=== PATIENT | female | born 1925 | race Caucasian/White ===

== ENCOUNTER 2016-11-21 14:54 | Inpatient (IN) | payer OTHER, MEDICARE ==
[~2016-11-21] VITALS: Ht 139.7 cm; Wt 69.9 kg
[~2016-11-21 14:54] MED LIST: ADVAIR DISKU 11 UNIT INH; DIOVAN HCT 12.51 TA1 PO; FOSINOPRIL40 MG PO; HYDROCODON-ACE1 EAC2 PO; LEVOTHROID0.025 MG PO; MOBIC7.5 M1 PO; PREDNISONE10 MG PO; SPIRIVA 18 MCG18 MCG INH; VALSARTAN-HCTZ1 EAC3 PO; VERAPAMIL HCL240 M2 PO; VIBRAMYCIN100 MG PO; ZITHROMAX 500M500 MG PO
--- NOTE | 2016-11-21 15:25 | ED DYSPNEA/ASTHMA COMPLAINT ---
History of Present Illness General Chief Complaint: Dyspnea (COPD, CHF, Other) Stated Complaint: SOB Source: patient, family, old records Exam Limitations: no limitations Vital Signs & Intake/Output Vital Signs & Intake/Output Vital Signs Date Time Temp Pulse Resp B/P Pulse O2 O2 Flow FiO2 Ox Delivery Rate 11/21 1738 98.7 90 18 127/59 92 Nasal 4.5L Cannula 11/21 1510 98.2 92 24 136/79 71 Nasal 4.0L Cannula Allergies Coded Allergies: NO KNOWN ALLERGIES (05/29/16) Reconcile Medications Azithromycin 250 MG TABLET 250 MG PO DAILY LUNG INFECTION Fluticasone-Salmeterol (Advair 100-50 Diskus) 100 MCG-50 MCG/DOSE BLST.W.DEV 1 PUF INH BID BREATING (Reported) Fosinopril Sodium 40 MG TABLET 1 TAB PO DAILY BLOOD PRESSURE Furosemide 20 MG TABLET 1 TAB PO DAILY CHF Hold HCTZ (one of your BP medication) while taking this med. Call corral boss if BP not under control. Guaifenesin (Guaifenesin ER) 600 MG TAB.ER.12H 600 MG PO Q12 MUCOUS THINNER Hydrocodone/Acetaminophen (Hydrocodon-Acetaminophen 5-325) 5 MG-325 MG TABLET 1-2 TAB PO Q8P PRN pain Levothyroxine Sodium (Levothroid) 0.025 MG TAB 0.025 MG PO DAILY THYROIDS ( Reported) Meloxicam (Mobic) 7.5 MG TABLET 1 TAB PO DAILY pain Prednisone 10 MG TABLET 1 TAB PO SI COPD TAKE 4 TABS FOR THREE DAYS (11/25/15-11/27/15) TAKE 3 TABS FOR THREE DAYS (11/28/15-11/30/15) TAKE 2 TABS FOR THREE DAYS (12/01/15-12/03/15) TAKE 1 TAB FOR THREE DAYS (12/04/15--12/06/15) Tiotropium [place] (Spiriva) 18 MCG CAP.W.DEV 1 CAP INH DAILY BREATHING ( Reported) Valsartan/Hydrochlorothiazide (Valsartan-Hctz 320-25 MG Tab) 1 EACH TABLET 1 TAB PO DAILY HEART (Reported) VERAPAMIL HCL (Verapamil ER) 240 MG TABLET.ER 360 MG PO DAILY BLOOD PRESSURE (Reported) Triage Note: RECEIVED 89 YO FEMALE WITH HX OF COPD, C/O WORSENING DIFFICULTY BREATHING X 2 DAYS WITH WEAKNESS AND NOW SOME CONFUSION. O2 SATS 68% ON 4L O2. 71% ON 6L O2. Triage Nurses Notes Reviewed? yes Onset: Gradual Duration: minute(s): (3), day(s): (3) Timing: recent history Severity: severe Activities at Onset: none Associated Symptoms: cough, DYSPNEA HPI: This is an 89-year-old female with history of COPD on 4 L of oxygen at home who arrives from home for chief complaint of increased shortness of breath over the last 2-3 days. Per the he noticed increased effort of breathing as well as phlegm productive of white and yellow sputum. Patient states that she lost her voice a few days ago. She has been using the nebulizer treatment at home with some relief. She does denies any chest pain or back pain. Denies any fever or chills. She is on a tapering dose of prednisone at 10 mg today. Her corral boss and international trade specialist out of [place] but she sees Anuradha Carlson MD for her primary care. Past History Travel History Traveled to [place] past 21 day No Medical History Any Pertinent Medical History? 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 No Review of Systems Review of Systems Constitutional: Denies: chills, fever. EENTM: Reports: no symptoms. Respiratory: Reports: cough, short of breath, sputum production. Cardiovascular: Denies: chest pain, palpitations. GI: Denies: abdominal pain. Genitourinary: Reports: no symptoms. Musculoskeletal: Reports: no symptoms. Skin: Reports: no symptoms. Neurological/Psychological: Reports: anxiety. Hematologic/Endocrine: Denies: bruising, bleeding, polyuria, polydipsia. Immunologic/Allergic: Denies: splenectomy. All Other Systems: Reviewed and Negative Physical Exam Physical Exam General Appearance: well developed/nourished, alert, awake Head: atraumatic, normal appearance, active bleeding Eyes: Bilateral: normal appearance, PERRL, EOMI. Ears, Nose, Throat: normal pharynx, normal ENT inspection, hearing grossly normal Neck: normal inspection, supple, full range of motion Respiratory: rhonchi, wheezing, respiratory distress Cardiovascular: tachycardia Peripheral Pulses: 2+ radial (R), 2+ radial (L) Gastrointestinal: normal bowel sounds, soft, non-tender Neurologic/Psych: awake, alert, oriented x 3 Skin: intact, normal color, warm/dry Core Measures ACS in differential dx? No Severe Sepsis Present: No Septic Shock Present: No Progress Differential Diagnosis: asthma, AMI, bronchitis, CHF, COPD, pulmonary embolism, pneumonia, pneumothorax, unstable angina Plan of Care: Orders Procedure Date/time Status Heart Healthy Diet 11/22 B Active Patient Data 11/21 1851 Active Admit to inpatient 11/21 1843 Active Vital Signs 11/21 1843 Active Code Status 11/21 1843 Active RT ED ORDERS 11/21 1820 Active Add-on Test (ER Only) 11/21 1757 Active TROPONIN LEVEL 11/21 1656 Complete ARTERIAL BLOOD GAS (GEN) 11/21 1530 Active RT ED ORDERS 11/21 1524 Active Telemetry/De Alcoholizer 11/21 1524 Active RAPID VIRAL INFLUENZA A 11/21 1524 Active LOWER RESPIRATORY CULTURE 11/21 1524 Active BLOOD CULTURE 11/21 1524 Active PARTIAL THROMBOPLASTIN TIME 11/21 1524 Complete PROTHROMBIN TIME 11/21 1524 Complete COMPREHENSIVE METABOLIC PANEL 11/21 1524 Complete CBC WITHOUT DIFFERENTIAL 11/21 1524 Complete B-TYPE NATRIURETIC PEP (BNP) 11/21 1524 Complete EKG 11/21 1507 Active Laboratory Tests 11/21/16 1656: Anion Gap 10, Estimated GFR > 60, BUN/Creatinine Ratio 36.7 H, Glucose 110 H, Calcium 8.8, Total Bilirubin 0.7, AST 24, ALT 28, Alkaline Phosphatase 68, Troponin I 0.03, Gkd-O-Xyncpljlmqe Pept 3930 H, Total Protein 6.6, Albumin 4.0, Globulin 2.6, Albumin/Globulin Ratio 1.5, PT 10.7, INR 1.02, APTT 28, CBC w Diff NO MAN DIFF REQ, RBC 3.78 L, MCV 94.1, MCH 31.3 H, RDW 13.8, MPV 6.8 L, Gran % 93.7 H, Lymphocytes % 1.9 L, Monocytes % 4.3, Eosinophils % 0.1, Basophils % 0 L, Absolute Granulocytes 15.2 H, Absolute Lymphocytes 0.3 L, Absolute Monocytes 0.7 H, Absolute Eosinophils 0, Absolute Basophils 0, PUBS MCHC 33.2 11/21/16 1550: pH 7.42, pCO2 52 H, pO2 60 L, HCO3 33 H, ABG O2 Sat (Measured) 90.0 L, Carboxyhemoglobin 1.4 L, O2 Concentration % 5L, O2 Delivery Method N/C, Phlebotomy Draw Site RIGHT RADIAL Microbiology 11/21 1656 BLOOD: Blood Culture - RECD 11/21 1619 BLOOD: Blood Culture - RECD 11/21 1524 LOWER RESP: Respiratory Culture - ORD 11/21 1524 LOWER RESP: Gram Stain - ORD EKG, TELE MONITOR, SUPPLEMENTAL OXYGEN, CXR. LABS SENT. DUONEB, IV SOLUMEDROL ORDERED. AZITHROMYCIN ORDERED. (NARCISO LEWIS,YVONNE) Diagnostic Imaging: Viewed by Me: Radiology Read. Discussed w/RAD: Radiology Read. CXR Impression: EXAM TYPE: RAD - XRY-PORTABLE CHEST XRAY EXAMINATION: XR PORTABLE CHEST CLINICAL INFORMATION: Hypoxia. COPD. Evaluate for pneumonia. COMPARISON: Previous chest x-rays most recent May [address] scans most recent November 2015 TECHNIQUE: AP portable chest FINDINGS: The cardiac silhouette is enlarged but stable. Hilar and mediastinal contours are unremarkable. The lungs are clear without evidence of pneumonia. There is no pleural effusion or pneumothorax. 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 IMPRESSION: Stable enlargement of the cardiac silhouette. No evidence of pneumonia. Initial ED EKG: NSR, LAD Rhythm Strip: sinus tachycardia Departure Departure Time of Disposition: 1836 Disposition: STILL A PATIENT Condition: Stable Clinical Impression Primary Impression: COPD exacerbation Secondary Impressions: Hypokalemia Referrals: MATT LEWIS,ANURADHA Simpson (PCP/Family) Referred to [facility] as new patient No Departure Forms: Customer Survey General Discharge Information Prescriptions: Current Visit Scripts Guaifenesin (Guaifenesin ER) 600 MG PO Q12 #10 TAB Prednisone 1 TAB PO SI #30 TAB TAKE 4 TABS FOR THREE DAYS (1/4/16-11/27/15) TAKE 3 TABS FOR THREE DAYS (11/28/15-11/30/15) TAKE 2 TABS FOR THREE DAYS (12/01/15-12/03/15) TAKE 1 TAB FOR THREE DAYS (12/04/15--12/06/15) Azithromycin 250 MG PO DAILY #3 TAB Fosinopril Sodium 1 TAB PO DAILY #30 TAB Furosemide 1 TAB PO DAILY #30 TAB Hold HCTZ (one of your BP medication) while taking this med. Call corral boss if BP not under control. Admission Note Spoke With: ADILENE SCHMID MD Documentation of Exam: Documentation of any treatments & extenuating circumstances including Concerns Regarding Discharge (functional status, medication knowledge or non-compliance, living conditions, etc.) that warrant an admission rather than observation: [TRC /NEBS, IV STEROIDS, IV ABX, PULMONARY CONSULT, MONITOR I/O] Critical Care Note Critical Care Note Critical Care Time: 30-74 min
--- NOTE | 2016-11-21 16:44 | RADIOLOGY REPORT ---
EXAMINATION: XR PORTABLE CHEST CLINICAL INFORMATION: Hypoxia. COPD. Evaluate for pneumonia. COMPARISON: Previous chest x-rays most recent May [address] scans most recent November 2015 TECHNIQUE: AP portable chest FINDINGS: The cardiac silhouette is enlarged but stable. Hilar and mediastinal contours are unremarkable. The lungs are clear without evidence of pneumonia. There is no pleural effusion or pneumothorax. 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 IMPRESSION: Stable enlargement of the cardiac silhouette. No evidence of pneumonia.
[2016-11-21 17:08] LABS: ABSOLUTE BASOPHIL COUNT 0 /CUMM (0.0-0.2); ABSOLUTE EOSINOPHIL COUNT 0 /CUMM (0.0-0.7); ABSOLUTE GRANULOCYTE CT 15.2 /CUMM (1.4-6.5); ABSOLUTE LYMPH COUNT 0.3 /CUMM (1.2-3.4); ABSOLUTE MONOCYTE COUNT 0.7 /CUMM (0.10-0.60); BASOPHIL % 0 % (0.0-2.0); EOSINOPHIL % 0.1 % (0-5); GRANULOCYTE % 93.7 % (42.2-75.2); HEMATOCRIT 35.6 % (37-47); MEAN CORPUSCULAR HGB 31.3 PG (27.0-31.0); MEAN CORPUSCULAR HGB CONC 33.2 G/DL (33.0-37.0); MEAN CORPUSCULAR VOLUME 94.1 FL (81.0-99.0); MEAN PLATELET VOLUME 6.8 FL (7.4-10.4); PLATELET COUNT 294 /CUMM (130-400); RBC DISTRIBUTION WIDTH 13.8 % (11.5-14.5); RED BLOOD CELL CT 3.78 /CUMM (4.20-5.40)
[2016-11-21 17:18] LABS: PT 10.7 SEC (9.4-12.5); PTT 28 SEC (25-37)
[2016-11-21 17:25] LABS: WHITE BLOOD CELL COUNT 16.2 /CUMM (4.8-10.8)
--- NOTE | 2016-11-21 19:41 | History & Physical ---
ZANA LEWIS,MERGED WITH [facility] 11/21/161939: General Information and HPI MD Statement: I have seen and personally examined MATT DEAL and documented this H&P. The patient is a 89 year old F who presented with a patient stated chief complaint of [SOB]. 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 Patient states that her dyspnea started around 10 days ago and getting worse. She added that during the last 3 days the dyspnea became severe to the point that she barely can walk 3 steps without getting severely out of breath. she started using nebulizer and rescue inhaler more frequently with less effect. Patient reported cough productive of beckford-white sputum. She has hoarseness of voice however she denies fever, chills, recent travel, sick contacts, or chest pain. Pneumococcal and flu vaccine are up-to-date. Patient denies history of heart failure, an echo was done recently and the results show no difference from the old echo. She denies Palpitation, orthopnea, PND, or lower limb swelling. Patient reported increased urinary frequency, but no dysuria, abdominal pain, fever or chills. Patient lived with her , at baseline patient use walker to ambulate, has long history of smoking, however denies current smoke, drink alcohol occasional, and denies any recreational drug use. She has advanced macular degeneration( hard to see) and impaired hearing. Allergies/Medications Allergies: Coded Allergies: NO KNOWN ALLERGIES (05/29/16) Home Med list Doxycycline Hyclate (Vibramycin) 100 MG CAPSULE 1 CAP PO BID skin infection Fluticasone-Salmeterol (Advair 100-50 Diskus) 100 MCG-50 MCG/DOSE BLST.W.DEV 1 PUF INH BID BREATING (Reported) Fosinopril Sodium 40 MG TABLET 1 TAB PO DAILY BLOOD PRESSURE (Reported) Hydrocodone/Acetaminophen (Hydrocodon-Acetaminophen 5-325) 5 MG-325 MG TABLET 1-2 TAB PO Q8P PRN pain Levothyroxine Sodium (Levothroid) 0.025 MG TAB 0.025 MG PO DAILY THYROIDS ( Reported) Meloxicam (Mobic) 7.5 MG TABLET 1 TAB PO DAILY pain Tiotropium Lawrence (Spiriva) 18 MCG CAP.W.DEV 1 CAP INH DAILY BREATHING ( Reported) Valsartan/Hydrochlorothiazide (Valsartan-Hctz 320-25 MG Tab) 1 EACH TABLET 1 TAB PO DAILY HEART (Reported) VERAPAMIL HCL (Verapamil ER) 240 MG TABLET.ER 360 MG PO DAILY BLOOD PRESSURE (Reported) Past History Travel History Traveled to [place] past 21 day No Medical History Neurological: NONE EENT: macular degeneration Cardiovascular: NONE (A), hypertension, AORTIC VALVE REGURGITATION Respiratory: COPD, emphysema Gastrointestinal: NONE Hepatic: NONE Renal: NONE Musculoskeletal: osteoarthritis Psychiatric: NONE Endocrine: hypothyroidism Blood Disorders: NONE Cancer(s): NONE HEMATOLOGY NURSE/Reproductive: miscarriage History of MRSA: No History of VRE: No History of CDIFF: No Surgical History Surgical History: non-contributory Past Family/Social History Family History Relations & Conditions if any MOTHER Relation not specified for: FH: hypertension Psychosocial History Who Do You Live With? spouse Services at Home: None Primary Language: Mongolian Review of Systems Review of Systems Constitutional: Denies: chills, fever, weakness. Cardiovascular: Denies: chest pain, orthopena, palpitations, peripheral edema, syncope. Respiratory: Reports: cough, sputum production (beckford sputum. ). GI: Denies: abdominal pain, constipation, diarrhea, distention, nausea, vomiting. Genitourinary: Reports: frequency. Denies: discharge, dysuria, hematuria. Skin: Denies: rash. Exam & Diagnostic Data Last 24 Hrs of Vital Signs/I&O Vital Signs Date Time Temp Pulse Resp B/P Pulse O2 O2 Flow FiO2 Ox Delivery Rate 11/22 0000 Nasal 4.0L Cannula 11/21 2323 94 118/68 11/21 2158 91 Nasal 6.0L Cannula 11/21 2155 97.8 94 24 118/68 91 Nasal 6.0L Cannula 11/21 2129 98.7 111 18 102/63 96 Nasal 4.0L Cannula 11/21 2128 98.7 111 18 63 96 Nasal 4.0L Cannula 11/21 1738 98.7 90 18 127/59 92 Nasal 4.5L Cannula 11/21 1600 90 Nasal 6.0L Cannula 11/21 1510 98.2 92 24 136/79 71 Nasal 4.0L Cannula Intake & Output 11/22 0800 11/22 0000 11/21 1600 Intake Total 400 Output Total Balance 400 Intake, IV 300 Intake, Oral 100 Patient 72.575 kg 72.575 kg Weight Physical Exam General Appearance Alert, Oriented X3, Cooperative, No Acute Distress Skin No Rashes HEENT Atraumatic, PERRLA, EOMI, Mucous Membr. moist/pink Neck No JVD Cardiovascular Regular Rate, Normal S1, Normal S2, systolic murmur best heard over aortic area. Lungs in respiratory distress, decrease air-entry B/L. use accessorries to breath . no whezzing or additional sounds. Abdomen Normal Bowel Sounds, Soft, No Tenderness Neurological Normal Speech Extremities LE pitting edema B/L Last 24 Hrs of Labs/Pedro: Laboratory Tests 11/21/16 2318: Troponin I 0.01 11/21/16 165: Anion Gap 10, Estimated GFR > 60, BUN/Creatinine Ratio 36.7 H, Glucose 110 H, Calcium 8.8, Total Bilirubin 0.7, AST 24, ALT 28, Alkaline Phosphatase 68, Troponin I 0.03, [id number] Pept 3930 H, Total Protein 6.6, Albumin 4.0, Globulin 2.6, Albumin/Globulin Ratio 1.5, TSH 2.320, Free T4 1.33, PT 10.7, INR 1.02, APTT 28, CBC w Diff NO MAN DIFF REQ, RBC 3.78 L, MCV 94.1, MCH 31.3 H, RDW 13.8, MPV 6.8 L, Gran % 93.7 H, Lymphocytes % 1.9 L, Monocytes % 4.3, Eosinophils % 0.1, Basophils % 0 L, Absolute Granulocytes 15.2 H, Absolute Lymphocytes 0.3 L, Absolute Monocytes 0.7 H, Absolute Eosinophils 0, Absolute Basophils 0, PUBS MCHC 33.2 11/21/16 1550: pH 7.42, pCO2 52 H, pO2 60 L, HCO3 33 H, ABG O2 Sat (Measured) 90.0 L, Carboxyhemoglobin 1.4 L, O2 Concentration % 5L, O2 Delivery Method N/C, Phlebotomy Draw Site RIGHT RADIAL Microbiology 11/21 2144 LOWER RESP: Respiratory Culture - ORD 11/21 2144 LOWER RESP: Gram Stain - ORD 11/21 1656 BLOOD: Blood Culture - RECD 11/21 1619 BLOOD: Blood Culture - RECD 11/21 1524 LOWER RESP: Respiratory Culture - ORD 11/21 1524 LOWER RESP: Gram Stain - ORD Assessment/Plan Assessment: Assessment and plan #Acute respiratory failure them most likely multifactorial in nature Patient has a history of COPD with ABG showing compensated respiratory acidosis with hypoxia. Patient does not have a history of heart failure however she has a lower limb edema bilaterally with mildly elevated PBN and crackles at lung bases bilaterally. --- for COPD * IV Solu-Medrol 40 mg every 8 hours * TRC nebs when necessary * IV azithromycin 500 mg IV daily * Oxygen as needed( now on 4 L with a saturation the lower 90s) * Mucinex 600 mg every 12 by mouth * Pulmonary consult in a.m. ---for possible heart failure * Patient received 20 mg IV Lasix * Strict I's and O's * We will obtain records of recent echo that was done at [place] * We will rule out ACS by 3 sets of troponins and EKG * Cardiology consult with Dr. Song in a.m. #Hyponatremia * Around baseline 130 * Repeat BEP in a.m. * Hydrochlorothiazide will be on hold #Oral thrush she has not been rinsing her mouth properly after use of oral steroid. * Nystatin swish and swallow * Educate patient about the proper way of using steroid inhaler. #HTN * Continue Verapamil and Lisinopril * We will hold losartan(patient is receiving lisinopril), confirmed in the morning * HCTZ is on hold (hyponatremia). #Hypothyroidism Patient reported that she is not taking her medication for a while. * Start levothyroxine * We will check TSH and T4 levels. #Ascending aorta aneurysm. * Major 4.[address] from Nov 2015. Stable * Will instruct the patient to Fu with PCP Diet Heart healthy diet Lovenox for DVT prophylaxis Patient is DNI but not DNR As Ranked By This Provider Problem List: 1. COPD (chronic obstructive pulmonary disease) 2. Hypoxia 3. COPD exacerbation Core Measures/Miscellaneous Acute Coronary Syndrome ACS Diagnosis: No Cerebrovascular Accident CVA/TIA Diagnosis: No Congestive Heart Failure CHF Diagnosis: Yes (need to be R/O ) Venous Thromboembolism VTE Risk Factors: Acute medical illness, Age > 40, Obesity VTE Prophylaxis Ordered Inpt: Mech & Pharm No Mech VTE prophylaxis d/t: No contraindications No VTE Pharm Prophylaxis d/t: No contraindications VTE Diagnosis: No VTE Type: NONE VTE Confirmed by (Test): NONE Severe Sepsis Severe Sepsis Present: No Septic Shock Septic Shock Present: No Miscellaneous Documentation Attending Case Discussed With: ADILENE SCHMID MD Primary Care Physician: ANURADHA GUTIERREZ MD Patient sees these Specialists ANURADHA GUTIERREZ MD Level of Patient Care: General Medicine SANDRO KUMAR 11/21/162037: General Information and HPI MD Statement: I have seen and personally examined MATT DEAL and documented this H&P. The patient is a 89 year old F who presented with a patient stated chief complaint of []. Resident Review Statement Resident Statement: examined this patient, discussed with international trade analyst Other Findings: Patient is a 89-year-old female with past medical history of COPD on 4 L home oxygen, hypertension, hypothyroidism macular degeneration, who presented to the ED for worsening shortness of breath for the last 1 week. Patient states for the past 1 week her shortness of breath is worsening and she is huffing and puffing with the walking 2-3 steps. At baseline she is on 4 L oxygen, however for the past few days she is requiring more oxygen for her regular chores. She is also bringing up whitish phlegm. She has been using Advair as when necessary, however for the past few days she has been using it frequently along with nebulization. Complains of hoarseness of voice Denies any fevers, chills, orthopnea, leg swelling, nausea, vomiting, abdominal pain, chest pain, palpitations, urinary or bowel symptoms. Denies any sick contacts, recent travel. Was administered pneumonia shot and flu shot a few weeks back. She is on prednisone 10 mg prescribed by her PCP Anuradha Gutierrez for COPD. Does not use any BiPAP. Denies history of heart failure. Follows up with fill technician Dr. Coelho([place]), and receptionist/telephone operator Dr. Vick([place]). She had an echocardiogram done 1 week back at a receptionist/telephone operator office which patient claims did not show any heart failure. Ex-smoker, quit 40 years ago. Occasional drinker 2-4 glasses of wine per week. Lives at home with her . Uses a rolling walker at baseline for ambulation. In the ED vitals temperature 98.2, pulse 92, respiration 24, blood pressure 136/ 79, saturating 71% on nasal cannula on 4 L.. Patient received nebulizer treatment in the ED which improved her saturations to 92% on 4.5 L. Labs white count 16.2, H&H 11.8/35.6, sodium 129, negative troponins, proBNP 3930. 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 No evidence of pneumonia. Physical exam Gen.: Awake, alert oriented 3, in moderate respiratory distress, speaking in full sentences.\ HEENT: PERRLA, EOMI, no JVD, oral thrush CVS: S1 and S2 heard, systolic murmur in aortic area Respiratory: Decreased breath sounds bilaterally, basal crackles bilaterally Extremities: Trace bilateral pedal edema Skin: Multiple telangiectasias on the back and extremities. Plan: 1. Acute hypoxic respiratory failure likely secondary to COPD exacerbation.No documented evidence of CHF/pneumonia. Chest x-ray does not show any pulmonary congestion/infiltrate. Patient has elevated white count(has been on steroids). -Admit to [facility] -Keep oxygenation with a 92% -TRC nebs [id number] -Sputum/blood cultures -IV Solu-Medrol 40 mg every 8 hours -IV azithromycin daily -Nystatin swish and swallow for oral thrush secondary to Advair. - Mucinex -Pulmonary consult in a.m. 2. CHF ?Elevated proBNP. Presence of pedal edema along with bilateral crackles on examination. Last echocardiogram from 07/09/2016 shows EF of more than 55%. No wall motion abnormalities. -We'll give patient 1 dose of IV Lasix 20 mg -3 sets of troponin and EKG to rule out ACS -Cardiology consult with Dr. Song in a.m. 3.Hyponatremia -Chronic, baseline around 130 -Repeat BEP in a.m. -We will hold HCTZ to be causing hyponatremia. 4.Hypertension -Continue Verapamil and Lisinopril -Patient is on valsartan HCTZ combination. She is also on lisinopril. Unclear why she is on WILIAN/ARB at the same time. We will continue Lisinopril for now. -We will hold HCTZ as it may be causing hyponatremia. 5. Hypothyroidism -Continue levothyroxine(patient says she has not been taking the thyroid medication for a while now) -We will check TSH and T4 levels. 6.Ascending aorta aneurysm- stable. - A 4.[address] from Nov 2015. Plan was to repeat CT in 6 months. PCP aware. -2 sub-5 mm noncalcified subpleural lung nodules- stable Lovenox for DVT prophylaxis Heart healthy diet Patient is DNI(okay to resuscitate) ADILENE SCHMID 11/21/16 2322: Attending MD Review Statement Attending Statement Attending MD Statement: examined this patient, discuss w/resident/PA/PURCHASING SUPERVISOR, agreed w/resident/PA/PURCHASING SUPERVISOR, discussed with family, reviewed EMR data (avail), reviewed images, amended to note Attending Assessment/Plan: CC : horse voice and sob Pmhx: HTN, COPD on home 02 at 4 L, HF, lower extremity venous insufficiency, thoracic aortic aneurysm Patient was noticing progressive worsening of shortness of Breath since last 1 week, with increasing use of nebulization and rescue inhalers. Shortness of breath but more on exertion, not at rest, no orthopnea, no PND. also noticed increased sputum production, without much worsening cough. Sputum was clear, no blood tinge. Patient did not notice any fever, chills, chest pain, recent viral infection, recent use of antibiotic, recent sick contacts. According to her patient was getting more lethargic and confused and last 2 days. She follows up with receptionist/telephone operator and fill technician at [place]. Patient also started to notice hoarseness of voice since last 2 days. She uses Advair as required, she used one week back without rinsing her mouth. Patient has macular degeneration so she cannot see much, she is hard of hearing. Vitals: She was saturating 68% on 4 L NC at arrival. O2 saturation improved after nebulization treatment in ER, eventually she saturating 90% on 6 L, afebrile, BP, HR in acceptable range. On examination: A O 3, respiratory distress, accessory muscles of respiration in use. RS: I could not appreciate significant wheeze but respiratory sounds are markedly with bibasilar crackles present. CVS: JVD could not be appreciated, S1-S2, RRR, systolic murmur in aortic area 3/6. Pitting edema bilateral lower extremity present. Abdomen: Soft, NT, ND, bowel sounds present, no focal neurological deficit. On oral examination mild congestion in the posterior pharyngeal wall normal obvious oral thrush absurd. Labs: WBC 16.2, hemoglobin 11.8, sodium 129, chloride 85, bicarbonate 35, BUN 22 , glucose 110, proBNP 3930, troponin 0.03, INR 1.02, AB.42/52/60/33 on 5 L Chest x-ray: Stable cardiomegaly, no evidence of pneumonia. A and P #1 acute respiratory failure: acute hypoxia on chronic co2 retention, Secondary to combination of COPD exacerbation along with possible decompensated heart failure. #2 COPD exacerbation: Patient has long-standing history of COPD, ABG is compensated with hypoxia, continue IV methylprednisolone 40 mg every 8 hourly, nebulization, O2 by nasal cannula, Mucinex, IV azithromycin. #3 possible decompensated heart failure: Patient does not have significant JVD elevation but trace pedal edema along with the crackles on examination, along with hypoxia on ABG favors a diagnosis. Try 20 mg IV Lasix now for symptomatic relief, Recent echocardiogram was done one month back, according to patient everything was normal. obtain records from receptionist/telephone operator, if not possible then patient may require 2-D echo Cardiogram. Decision of Lasix continuation tomorrow according to clinical examination. Patient denies any chest pain, trend troponin , repeat EKG in a.m. Strict I's and O's #4 hyponatremia with sodium 129: appears to be chronic recheck check sodium in morning. #5 hoarseness of voice: This can be probably secondary to thrush. Given that she has not been rinsing her mouth after use of Advair. Nystatin swish and swallow for tomorrow, reevaluate. I counseled her about use of advair. #6 leukocytosis: on PO prednisone at home, Patient does not have any significant fever in ER or at home, there are no infiltrates on chest x-ray, no symptoms of UTI, continue azithromycin for COPD exacerbation repeat CBC in a.m., check blood cultures. #7 DVT prophylaxis with Lovenox, adequate pain control.
[2016-11-21 21:55] VITALS: BP 118/68
--- NOTE | 2016-11-21 23:23 | Admission Certification ---
Admission Certification Certification Statement - As attending physician, I certify that at the time of - admission, based on clinical presentation, severity of - symptoms, need for further diagnostic testing and - therapeutic interventions, and risk of adverse outcomes - without in-hospital treatment, in my clinical assessment, - this patient requires an acute hospital stay for a minimum - of two nights or longer. I have also considered psychsocial - factors such as support system, advanced age, financial - issues, cognitive issues, and failed out-patient treatments, - past re-admission history, safety of patient, and lack of - compliance as applicable. Specific rationale supporting this admission is: acute on chronic respiratory failure, copd exacerbation
[2016-11-22 07:25] VITALS: BP 100/60
[2016-11-22 08:21] LABS: ABSOLUTE BASOPHIL COUNT 0 /CUMM (0.0-0.2); ABSOLUTE EOSINOPHIL COUNT 0 /CUMM (0.0-0.7); ABSOLUTE GRANULOCYTE CT 8.3 /CUMM (1.4-6.5); ABSOLUTE LYMPH COUNT 0.1 /CUMM (1.2-3.4); ABSOLUTE MONOCYTE COUNT 0.1 /CUMM (0.10-0.60); BASOPHIL % 0 % (0.0-2.0); EOSINOPHIL % 0 % (0-5); GRANULOCYTE % 97.4 % (42.2-75.2); HEMATOCRIT 34.1 % (37-47); MEAN CORPUSCULAR HGB 31.9 PG (27.0-31.0); MEAN CORPUSCULAR HGB CONC 34.1 G/DL (33.0-37.0); MEAN CORPUSCULAR VOLUME 93.6 FL (81.0-99.0); PLATELET COUNT 299 /CUMM (130-400); RBC DISTRIBUTION WIDTH 13.9 % (11.5-14.5); RED BLOOD CELL CT 3.65 /CUMM (4.20-5.40)
--- NOTE | 2016-11-22 09:06 | PN- Housestaff ---
[place] 11/22/16 0906: Subjective Follow-up For: -COPD exacerbation -Compensated congestive heart failure -Hyponatremia -Peripheral vascular disease Complaints: shortness of breath Subjective: Patient seen and examined at the bedside, she is sitting up in chair with a mild distress, nasal cannula in place, she ate her breakfast with no problem. Her blood pressure is in the low side today 100/60, we hold her blood pressure medication. She stated that her breathing is improved, she brought up whitish sputum No chest pain, nausea, vomiting, fever, chills, and there is no change in urinary or bowel habits. Her other vitals are stable, she is on 4 L nasal cannula and oxygen saturation more than 82% Review of Systems Constitutional: Reports: no symptoms. EENTM: Reports: no symptoms. Cardiovascular: Reports: no symptoms. Respiratory: Reports: see HPI, short of breath. Gastrointestinal: Reports: no symptoms. Genitourinary: Reports: no symptoms. Musculoskeletal: Reports: no symptoms. Skin: Reports: change in skin color, dryness (bilateral lower extremity). Neurological/Psychological: Reports: no symptoms. Hematologic/Endocrine: Reports: no symptoms. Immunologic/Allergic: Reports: no symptoms. Objective Last 24 Hrs of Vital Signs/I&O Vital Signs Date Time Temp Pulse Resp B/P Pulse O2 O2 Flow FiO2 Ox Delivery Rate 11/22 0725 98.7 68 22 100/60 91 Nasal Cannula 11/22 0000 Nasal 4.0L Cannula 11/21 2323 94 118/68 11/21 2158 91 Nasal 6.0L Cannula 11/21 2155 97.8 94 24 118/68 91 Nasal 6.0L Cannula 11/21 2129 98.7 111 18 102/63 96 Nasal 4.0L Cannula 11/218 98.7 111 18 102/63 96 Nasal 4.0L Cannula 11/21 1738 98.7 90 18 127/59 92 Nasal 4.5L Cannula 11/21 1600 90 Nasal 6.0L Cannula 11/21 1510 98.2 92 24 136/79 71 Nasal 4.0L Cannula Intake & Output 11/22 1600 11/22 0800 11/22 0000 Intake Total 130 400 Output Total 1000 Balance -870 400 Intake, IV 30 300 Intake, Oral 100 100 Number 0 Bowel Movements Output, Urine 1000 Patient 160 lb Weight Physical Exam General Appearance: Alert, Oriented X3, Cooperative, Mild Distress Skin: bilateral lower extremity multiple bruise, dryness HEENT: Atraumatic, PERRLA, EOMI, Mucous Membr. moist/pink Neck: Supple, No JVD Lymphatic: Axillary nl, Cervical nl Cardiovascular: Regular Rate, Normal S1, Normal S2, No Murmurs Lungs: Clear to Auscultation, Normal Air Movement Abdomen: Normal Bowel Sounds, Soft, No Tenderness Extremities: bilateral lower extremity +2 edema Vascular: Normal Pulses Current Medications: Current Medications Sig/Lashon Start time Last Medication Dose Route Stop Time Status Admin Acetaminophen 325 MG Q6P PRN 11/21 1945 AC PO Acetaminophen/ 1 TAB Q8P PRN 11/21 1945 AC 11/21 Hydrocodone Bitart PO 2211 Albuterol Sulfate 3 ML ONCE ONE 11/21 1830 DC 11/21 INH 11/21 1831 1822 Albuterol Sulfate 3 ML ONCE ONE 11/21 1530 DC 11/21 INH 11/21 1531 1542 Azithromycin 500 MG 1830 11/22 183 AC Sodium Chloride 250 ML IV Azithromycin 500 MG ONCE ONE 11/21 1715 DC 11/21 Sodium Chloride 250 ML IV 11/21 1814 1858 Enoxaparin Sodium 40 MG DAILY 11/21 1937 AC 11/22 SC 1007 Fluticasone 2 PUF BID 11/21 2200 AC 11/22 Propionate INH 1001 Furosemide 20 MG ONCE ONE 11/21 2030 DC 11/21 IV PUSH 11/21 2031 2325 Guaifenesin 600 MG Q12 11/21 220 AC 11/22 PO 1005 Ipratropium [place] 2.5 ML ONCE ONE 11/21 1830 DC 11/21 INH 11/21 1831 1822 Ipratropium [place] 2.5 ML ONCE ONE 11/21 1530 DC 11/21 INH 11/21 1531 1541 Levothyroxine Sodium 0.025 MG DAILY AC 11/22 0700 CAN PO Lisinopril 40 MG DAILY 11/22 1000 AC PO Losartan Potassium 25 MG DAILY 11/21 194 DC 11/21 PO 2323 Methylprednisolone 40 MG Q8 11/21 2200 AC 11/22 IV 0621 Methylprednisolone 0 .STK-MED ONE 11/21 1705 DC .ROUTE Methylprednisolone 125 MG ONCE ONE 11/21 1530 DC 11/21 IV 11/21 1531 1713 Nystatin 5 ML Q6 11/22 0600 AC 11/22 PO 11/22 1801 0622 Nystatin 5 ML Q6 11/21 06 DC 11/21 PO 11/21 1801 2324 Oxybutynin Chloride 5 MG DAILY 11/218 AC 11/22 PO 1001 Patient Medication 1 UNIT ONE NR 11/21 2030 [facility] ED 11/21 2100 Patient Medication 1 UNIT ONE NR 11/21 2030 [facility] ED 11/21 2100 Patient Medication 1 UNIT ONE NR 11/21 1945 [facility] ED 11/21 2000 Tiotropium [place] 1 PUF DAILY 11/21 194 AC 11/22 INH 1002 Verapamil HCl 360 MG DAILY 11/22 1000 DC PO Verapamil HCl 360 MG DAILY 11/22 1000 AC PO Last 24 Hrs of Lab/Pedro Results Last 24 Hrs of Labs/Mics: Laboratory Tests 11/22/16 0710: Anion Gap 10, Estimated GFR > 60, BUN/Creatinine Ratio 30.0 H, Troponin I 0.02, CBC w Diff NO MAN DIFF REQ, RBC 3.65 L, MCV 93.6, MCH 31.9 H, RDW 13.9, MPV 7.0 L, Gran % 97.4 H, Lymphocytes % 1.5 L, Monocytes % 1.1 L, Eosinophils % 0, Basophils % 0 L, Absolute Granulocytes 8.3 H, Absolute Lymphocytes 0.1 L, Absolute Monocytes 0.1 L, Absolute Eosinophils 0, Absolute Basophils 0, PUBS MCHC 34.1 11/21/16 2318: Troponin I 0.01 11/21/16 1656: Anion Gap 10, Estimated GFR > 60, BUN/Creatinine Ratio 36.7 H, Glucose 110 H, Calcium 8.8, Total Bilirubin 0.7, AST 24, ALT 28, Alkaline Phosphatase 68, Troponin I 0.03, Oho-O-Iwaonzuqzgo Pept 3930 H, Total Protein 6.6, Albumin 4.0, Globulin 2.6, Albumin/Globulin Ratio 1.5, TSH 2.320, Free T4 1.33, PT 10.7, INR 1.02, APTT 28, CBC w Diff NO MAN DIFF REQ, RBC 3.78 L, MCV 94.1, MCH 31.3 H, RDW 13.8, MPV 6.8 L, Gran % 93.7 H, Lymphocytes % 1.9 L, Monocytes % 4.3, Eosinophils % 0.1, Basophils % 0 L, Absolute Granulocytes 15.2 H, Absolute Lymphocytes 0.3 L, Absolute Monocytes 0.7 H, Absolute Eosinophils 0, Absolute Basophils 0, PUBS MCHC 33.2 11/21/16 1550: pH 7.42, pCO2 52 H, pO2 60 L, HCO3 33 H, ABG O2 Sat (Measured) 90.0 L, Carboxyhemoglobin 1.4 L, O2 Concentration % 5L, O2 Delivery Method N/C, Phlebotomy Draw Site RIGHT RADIAL Microbiology 11/21 2144 LOWER RESP: Respiratory Culture - COLB 11/21 2144 LOWER RESP: Gram Stain - COLB 11/21 1656 BLOOD: Blood Culture - RECD 11/21 161 BLOOD: Blood Culture - RECD 11/21 152 LOWER RESP: Respiratory Culture - COLB 11/21 152 LOWER RESP: Gram Stain - COLB Assessment/Plan Assessment: 89-year-old female with past medical history significant for COPD on home oxygen , hypertension, hypothyroidism, lower extremity venous insufficiency, thoracic aortic aneurysm presented to emergency department with progressive shortness of breath and admitted for COPD exacerbation and possible CHF. Assessment and plan: # Acute hypoxic respiratory failure likely secondary to COPD exacerbation. -Keep oxygenation with a 92% -TRC nebs [id number] -Follow-up Sputum/blood cultures -Continue IV Solu-Medrol 40 mg every 8 hours -Continue IV azithromycin daily -Nystatin swish and swallow for oral thrush secondary to Advair. - Mucinex -Pending pulmonary consult 2. CHF ?Elevated proBNP. Presence of pedal edema along with bilateral crackles on examination. Last echocardiogram from 07/09/2016 shows EF of more than 55%. No wall motion abnormalities. - she received 1 dose of IV Lasix 20 mg, will hold for now on more Lasix her blood pressure is borderline, consider resuming low-dose Lasix at a.m. 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 She was advised to follow-up with her PCP after discharge regarding her blood pressure medication 5. Hypothyroidism -Continue levothyroxine(patient says she has not been taking the thyroid medication for a while now) -We will check TSH and T4 levels. 6.Ascending aorta aneurysm- stable. - A 4.[address] from Nov 2015. Plan was to repeat CT in 6 months. PCP aware. -2 sub-5 mm noncalcified subpleural lung nodules- stable Lovenox for DVT prophylaxis Heart healthy diet Problem List: 1. COPD (chronic obstructive pulmonary disease) Pain Ratin Pain Location: - Pain Goal: Remain pain free Pain Plan: - Tomorrow's Labs & Rationales: CBC, BEP
[2016-11-22 10:03] LABS: WHITE BLOOD CELL COUNT 8.5 /CUMM (4.8-10.8)
--- NOTE | 2016-11-22 10:43 | Cons- Pulmonary ---
General Information and HPI Consulting Request Date of Consult: 11/22/16 Requested By: Dr. Todd Reason for Consult: COPD exacerbation. Source of Information: patient, old records Exam Limitations: no limitations History of Present Illness: The patient is an 89-year-old female with a past history significant for COPD/ emphysema chronically on 4 L of nasal oxygen. She also has a history of hypothyroidism, hypertension, and advanced macular degeneration. The patient was brought to the emergency department for evaluation of shortness of breath that has been worsening over the past 1-2 weeks. The patient has been physically limited as a result of her shortness of breath. The patient was using her nebulizer without relief. She has a cough productive of [place] to white sputum. There is no history of orthopnea, PND, increased lower extremity swelling, chest pain, fevers or chills. The patient reports that she is feeling slightly better. Allergies/Medications Allergies: Coded Allergies: NO KNOWN ALLERGIES (05/29/16) Home Med List: Doxycycline Hyclate (Vibramycin) 100 MG CAPSULE 1 CAP PO BID skin infection Fluticasone-Salmeterol (Advair 100-50 Diskus) 100 MCG-50 MCG/DOSE BLST.W.DEV 1 PUF INH BID BREATING (Reported) Fosinopril Sodium 40 MG TABLET 1 TAB PO DAILY BLOOD PRESSURE (Reported) Hydrocodone/Acetaminophen (Hydrocodon-Acetaminophen 5-325) 5 MG-325 MG TABLET 1-2 TAB PO Q8P PRN pain Levothyroxine Sodium (Levothroid) 0.025 MG TAB 0.025 MG PO DAILY THYROIDS ( Reported) Meloxicam (Mobic) 7.5 MG TABLET 1 TAB PO DAILY pain Tiotropium [place] (Spiriva) 18 MCG CAP.W.DEV 1 CAP INH DAILY BREATHING ( Reported) Valsartan/Hydrochlorothiazide (Valsartan-Hctz 320-25 MG Tab) 1 EACH TABLET 1 TAB PO DAILY HEART (Reported) VERAPAMIL HCL (Verapamil ER) 240 MG TABLET.ER 360 MG PO DAILY BLOOD PRESSURE (Reported) Review of Systems Review of Systems All Other Systems: Reviewed and Negative Past History Travel History Traveled to [place] past 21 day No Medical History Blood Transfusion Hx: No Neurological: NONE EENT: macular degeneration Cardiovascular: NONE (A), hypertension, AORTIC VALVE REGURGITATION Respiratory: COPD, emphysema Gastrointestinal: NONE Hepatic: NONE Renal: NONE Musculoskeletal: osteoarthritis Psychiatric: NONE Endocrine: hypothyroidism Blood Disorders: NONE Cancer(s): NONE 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 Home Who Do You Live With? spouse Services at Home: None Primary Language: Kiswahili Smoking Status: Former Smoker Exam & Diagnostic Data Last 24 Hrs of Vital Signs/I&O Vital Signs Date Time Temp Pulse Resp B/P Pulse O2 O2 Flow FiO2 Ox Delivery Rate 11/22 0725 98.7 68 22 100/60 91 Nasal Cannula 11/22 0000 Nasal 4.0L Cannula 11/21 2323 94 118/68 11/21 2158 91 Nasal 6.0L Cannula 11/21 2155 97.8 94 24 11868 91 Nasal 6.0L Cannula 11/21 2129 98.7 111 18 102/63 96 Nasal 4.0L Cannula 11/21 2128 98.7 111 18 102/63 96 Nasal 4.0L Cannula 11/21 1738 98.7 90 18 127/59 92 Nasal 4.5L Cannula 11/21 1600 90 Nasal 6.0L Cannula 11/21 1510 98.2 92 24 136/79 71 Nasal 4.0L Cannula Intake & Output 11/22 1600 11/22 0800 11/22 0000 Intake Total 130 400 Output Total 1000 Balance -870 400 Intake, IV 30 300 Intake, Oral 100 100 Number 0 Bowel Movements Output, Urine 1000 Patient 160 lb Weight Physical Exam General Appearance Alert, Oriented X3, Cooperative, No Acute Distress Skin No Rashes HEENT Atraumatic, PERRLA, EOMI Neck Supple Cardiovascular Regular Rate, Normal S1, Normal S2, systolic murmur best heard over aortic area. Lungs in respiratory distress, decrease air-entry B/L. use accessorries to breath . no whezzing or additional sounds. Abdomen Normal Bowel Sounds, Soft, No Tenderness Neurological Normal Speech Extremities LE pitting edema B/L Last 48 Hrs of Labs/Pedro: Laboratory Tests 11/22/16 0710: Anion Gap 10, Estimated GFR > 60, BUN/Creatinine Ratio 30.0 H, Troponin I 0.02, CBC w Diff NO MAN DIFF REQ, RBC 3.65 L, MCV 93.6, MCH 31.9 H, RDW 13.9, MPV 7.0 L, Gran % 97.4 H, Lymphocytes % 1.5 L, Monocytes % 1.1 L, Eosinophils % 0, Basophils % 0 L, Absolute Granulocytes 8.3 H, Absolute Lymphocytes 0.1 L, Absolute Monocytes 0.1 L, Absolute Eosinophils 0, Absolute Basophils 0, PUBS MCHC 34.1 11/21/16 2318: Troponin I 0.01 11/21/16 1656: Anion Gap 10, Estimated GFR > 60, BUN/Creatinine Ratio 36.7 H, Glucose 110 H, Calcium 8.8, Total Bilirubin 0.7, AST 24, ALT 28, Alkaline Phosphatase 68, Troponin I 0.03, Mlb-M-Jqtbnvnzodj Pept 3930 H, Total Protein 6.6, Albumin 4.0, Globulin 2.6, Albumin/Globulin Ratio 1.5, TSH 2.320, Free T4 1.33, PT 10.7, INR 1.02, APTT 28, CBC w Diff NO MAN DIFF REQ, RBC 3.78 L, MCV 94.1, MCH 31.3 H, RDW 13.8, MPV 6.8 L, Gran % 93.7 H, Lymphocytes % 1.9 L, Monocytes % 4.3, Eosinophils % 0.1, Basophils % 0 L, Absolute Granulocytes 15.2 H, Absolute Lymphocytes 0.3 L, Absolute Monocytes 0.7 H, Absolute Eosinophils 0, Absolute Basophils 0, PUBS MCHC 33.2 11/21/16 1550: pH 7.42, pCO2 52 H, pO2 60 L, HCO3 33 H, ABG O2 Sat (Measured) 90.0 L, Carboxyhemoglobin 1.4 L, O2 Concentration % 5L, O2 Delivery Method N/C, Phlebotomy Draw Site RIGHT RADIAL Assessment/Plan Impression/Plan: 1. Acute on chronic respiratory failure in the setting of severe COPD. 2. Probable volume overload in the setting of chronic edema. 3. Chronic hyponatremia. 4. History of oral thrush. 5. Hypertension - HCTZ held due to hyponatremia. 6. Hypothyroidism. 7. Descending aortic aneurysm. 8. Increased leukocytosis which may be related to steroid therapy as an outpatient. Recommendations: * Continue nebs/TRC - every 4 hours [id number]. * Maintain oxygen saturations greater than or equal to 92%. * Continue IV Solu-Medrol 40 mg every 8 hours daily. * Continue IV azithromycin. * Agree with nystatin swish and swallow. * Continue Mucinex. * Follow up cardiology recommendations, consider diuresis. Consult Acknowledgment - Thank you for your consult request.
[2016-11-22 15:30] VITALS: BP 120/80
--- NOTE | 2016-11-22 20:29 | Cons- Cardiology ---
General Information and HPI Consulting Request Date of Consult: 11/22/16 Requested By: ADILENE SCHMID MD Reason for Consult: Congestive heart failure History of Present Illness: The patient is an 89-year-old female with history of hypertension, hypothyroidism, and macular degeneration who presents with complaint of shortness of breath the shortness of breath started around 10 days ago, and has been progressively worsening. Over the past 3 days the shortness of breath add became severe to the point that she can only walk a few steps. She has been using her nebulizer and inhaler with minimal effect. She describes recent cough productive of great white sputum. Her voice has been hoarse. No recent fever chills. No chest pain. No urinary frequency. No nausea or vomiting. No lightheadedness or dizziness. She is followed in the office by Dr. Carrasco at [place]. Allergies/Medications Allergies: Coded Allergies: NO KNOWN ALLERGIES (12/08/16) Home Med List: Albuterol Sulfate (Proventil Hfa) 90 MCG HFA.AER.AD 2 PUF INH 4 TIMES/DAY COPD (Reported) Azithromycin 250 MG TABLET 250 MG PO DAILY LUNG INFECTION Fluticasone-Salmeterol (Advair 100-50 Diskus) 100 MCG-50 MCG/DOSE BLST.W.DEV 1 PUF INH BID BREATING (Reported) Fosinopril Sodium 40 MG TABLET 1 TAB PO DAILY BLOOD PRESSURE Furosemide 20 MG TABLET 1 TAB PO DAILY CHF Hold HCTZ (one of your BP medication) while taking this med. Call area relief pilot if BP not under control. Guaifenesin (Guaifenesin ER) 600 MG TAB.ER.12H 600 MG PO Q12 MUCOUS THINNER Levothyroxine Sodium (Levothroid) 0.025 MG TAB 0.025 MG PO DAILY THYROIDS ( Reported) Prednisone 10 MG TABLET 1 TAB PO SI COPD TAKE 4 TABS FOR THREE DAYS (11/25/15-11/27/15) TAKE 3 TABS FOR THREE DAYS (11/28/15-11/30/15) TAKE 2 TABS FOR THREE DAYS (12/01/15-12/03/15) TAKE 1 TAB FOR THREE DAYS (12/04/15--12/06/15) Tiotropium [place] (Spiriva) 18 MCG CAP.W.DEV 1 CAP INH DAILY BREATHING ( Reported) Valsartan/Hydrochlorothiazide (Valsartan-Hctz 320-25 MG Tab) 1 EACH TABLET 1 TAB PO DAILY HEART (Reported) VERAPAMIL HCL (Verapamil ER) 240 MG TABLET.ER 360 MG PO DAILY BLOOD PRESSURE (Reported) Current Medications: Current Medications Sig/Lashon Start time Last Medication Dose Route Stop Time Status Admin Acetaminophen 325 MG Q6P PRN 11/21 1945 AC PO Acetaminophen/ 1 TAB Q8P PRN 11/21 1945 AC 11/21 Hydrocodone Bitart PO 2211 Albuterol Sulfate 3 ML Q4 11/22 1100 AC 11/23 INH 0012 Azithromycin 250 MG DAILY 11/23 1000 AC PO Azithromycin 500 MG 1830 11/22 1830 DC 11/22 Sodium Chloride 250 ML IV 1737 Enoxaparin Sodium 40 MG DAILY 11/21 193 AC 11/22 SC 1007 Fluticasone 2 PUF BID 11/21 2200 AC 11/22 Propionate INH 2134 Furosemide 20 MG ONCE ONE 11/22 1630 DC 11/22 IV PUSH 11/22 1631 1728 Guaifenesin 600 MG Q12 11/21 2200 AC 11/22 PO 2134 Lisinopril 40 MG DAILY 11/22 1000 AC PO Losartan Potassium 25 MG DAILY 11/21 194 DC 11/21 PO 2323 Methylprednisolone 40 MG Q8 11/21 2200 AC 11/22 IV 2134 Nystatin 5 ML Q6 11/22 0600 DC 11/22 PO 11/22 1801 1734 Oxybutynin Chloride 5 MG DAILY 11/21 2158 AC 11/22 PO 1001 Tiotropium [place] 1 PUF DAILY 11/21 194 AC 11/22 INH 1002 Verapamil HCl 360 MG DAILY 11/22 1000 DC PO Verapamil HCl 360 MG DAILY 11/22 1000 AC PO Review of Systems Review of Systems: No rash. No tremor. No melena. No diaphoresis. All other systems are reviewed and are noted to be negative. Past History Travel History Traveled to [place] past 21 day No Medical History Blood Transfusion Hx: No Neurological: NONE EENT: macular degeneration Cardiovascular: NONE (A), hypertension, AORTIC VALVE REGURGITATION Respiratory: COPD, emphysema Gastrointestinal: NONE Hepatic: NONE Renal: NONE Musculoskeletal: osteoarthritis Psychiatric: NONE Endocrine: hypothyroidism Blood Disorders: NONE Cancer(s): NONE GWOT IA/ILO INTELLIGENCE SUPPORT/Reproductive: miscarriage Surgical History Surgical History: non-contributory Family History Relations & Conditions If Any: MOTHER Relation not specified for: FH: hypertension Psychosocial History Where Do You Live? Home Who Do You Live With? spouse Services at Home: None Primary Language: Welsh Smoking Status: Former Smoker Exam & Diagnostic Data Vital Signs and I&O Vital Signs Date Time Temp Pulse Resp B/P Pulse O2 O2 Flow FiO2 Ox Delivery Rate 11/22 2246 99.2 106 24 120/80 91 Nasal Cannula 11/22 1645 94 Nasal 4.0L Cannula 11/22 1551 Nasal 4.0L Cannula 11/22 1530 99.2 98 24 120/80 93 11/22 0800 93 Nasal 4.0L Cannula 11/22 0725 98.7 68 22 100/60 91 Nasal Cannula Intake & Output 11/23 0811/23 0000 11/22 1600 11/22 0811/22 0000 11/21 1600 Intake Total 500 130 400 Output Total 158 255 9492 Balance -350 300 -870 400 Intake, IV 30 300 Intake, Oral 500 100 100 Number 0 Bowel Movements Output, Urine 341 458 7750 Patient 160 lb 160 lb Weight Physical Exam: Gen: The patient is in no acute distress HEENT: Normal nose, ears, and oropharynx. Pupils equal bilaterally. Conjunctiva normal. Neck: Supple with no JVD, no masses, and no thyromegaly Lungs: Rales in the bases bilaterally with normal respiratory effort Heart: RRR, S1, S2, 2/6 systolic murmur. 2+ peripheral edema, 2+ pulses in the lower extremities bilaterally Abdomen: Soft, nontender, no masses. No hepatomegaly. No splenomegaly Extremities: No clubbing or cyanosis. Normal muscle strength in the upper and lower extremities. Skin: Normal skin turgor with no skin ulcers or lesions noted. Neuro: Cranial nerves intact. Sensation intact Psych: Alert and oriented 3 with appropriate affect Labs/Pedro Results: Laboratory Tests 11/22 11/21 11/21 0710 2318 2157 Chemistry Sodium (137 - 145 mmol/L) 129 L Potassium (3.5 - 5.1 mmol/L) 4.1 Chloride (98 - 107 mmol/L) 81 L Carbon Dioxide (22 - 30 mmol/L) 37 H Anion Gap (5 - 16) 10 BUN (7 - 17 mg/dL) 18 H Creatinine (0.5 - 1.0 mg/dL) 0.6 Estimated GFR (>60 ml/min) > 60 BUN/Creatinine Ratio (7 - 25 %) 30.0 H Troponin I (< 0.11 ng/ml) 0.02 0.01 Hematology CBC w Diff NO MAN DIFF REQ WBC (4.8 - 10.8 /CUMM) 8.5 RBC (4.20 - 5.40 /CUMM) 3.65 L Hgb (12.0 - 16.0 G/DL) 11.6 L Hct (37 - 47 %) 34.1 L MCV (81.0 - 99.0 FL) 93.6 MCH (27.0 - 31.0 PG) 31.9 H RDW (11.5 - 14.5 %) 13.9 Plt Count (130 - 400 /CUMM) 299 MPV (7.4 - 10.4 FL) 7.0 L Gran % (42.2 - 75.2 %) 97.4 H Lymphocytes % (20.5 - 51.1 %) 1.5 L Monocytes % (1.7 - 9.3 %) 1.1 L Eosinophils % (0 - 5 %) 0 Basophils % (0.0 - 2.0 %) 0 L Absolute Granulocytes (1.4 - 6.5 /CUMM) 8.3 H Absolute Lymphocytes (1.2 - 3.4 /CUMM) 0.1 L Absolute Monocytes (0.10 - 0.60 /CUMM) 0.1 L Absolute Eosinophils (0.0 - 0.7 /CUMM) 0 Absolute Basophils (0.0 - 0.2 /CUMM) 0 PUBS MCHC (33.0 - 37.0 G/DL) 34.1 Urines Urine Color Cancelled Urine Clarity Cancelled Urine pH Cancelled Ur Specific [place] Cancelled Urine Protein Cancelled Urine Ketones Cancelled Urine Nitrite Cancelled Urine Bilirubin Cancelled Urine Urobilinogen Cancelled Ur Leukocyte Esterase Cancelled Ur Microscopic Cancelled Urine Hemoglobin Cancelled Urine Glucose Cancelled 11/21 11/21 1656 1550 Blood Gas pH (7.35 - 7.45 PH) 7.42 pCO2 (35 - 45 TORR) 52 H pO2 (80 - 100 TORR) 60 L HCO3 (21 - 28 MEQ/L) 33 H ABG O2 Sat (Measured) (>96.0 %) 90.0 L Carboxyhemoglobin (1.5 - 5.0 %) 1.4 L O2 Concentration % 5L O2 Delivery Method N/C Chemistry Sodium (137 - 145 mmol/L) 129 L Potassium (3.5 - 5.1 mmol/L) 4.2 Chloride (98 - 107 mmol/L) 85 L Carbon Dioxide (22 - 30 mmol/L) 35 H Anion Gap (5 - 16) 10 BUN (7 - 17 mg/dL) 22 H Creatinine (0.5 - 1.0 mg/dL) 0.6 Estimated GFR (>60 ml/min) > 60 BUN/Creatinine Ratio (7 - 25 %) 36.7 H Glucose (65 - 99 mg/dL) 110 H Calcium (8.4 - 10.2 mg/dL) 8.8 Total Bilirubin (0.2 - 1.3 mg/dL) 0.7 AST (14 - 36 U/L) 24 ALT (9 - 52 U/L) 28 Alkaline Phosphatase (<127 U/L) 68 Troponin I (< 0.11 ng/ml) 0.03 Fed-P-Hnxutmywcww Pept (<125 pg/mL) 3930 H Total Protein (6.3 - 8.2 g/dL) 6.6 Albumin (3.5 - 5.0 g/dL) 4.0 Globulin (1.9 - 4.2 gm/dL) 2.6 Albumin/Globulin Ratio (1.1 - 2.2 %) 1.5 TSH (0.270 - 4.200 uIU/mL) 2.320 Free T4 (0.85 - 1.93 ng/dL) 1.33 Coagulation PT (9.4 - 12.5 SEC) 10.7 INR (0.90 - 1.19) 1.02 APTT (25 - 37 SEC) 28 Hematology CBC w Diff NO MAN DIFF REQ WBC (4.8 - 10.8 /CUMM) 16.2 H RBC (4.20 - 5.40 /CUMM) 3.78 L Hgb (12.0 - 16.0 G/DL) 11.8 L Hct (37 - 47 %) 35.6 L MCV (81.0 - 99.0 FL) 94.1 MCH (27.0 - 31.0 PG) 31.3 H RDW (11.5 - 14.5 %) 13.8 Plt Count (130 - 400 /CUMM) 294 MPV (7.4 - 10.4 FL) 6.8 L Gran % (42.2 - 75.2 %) 93.7 H Lymphocytes % (20.5 - 51.1 %) 1.9 L Monocytes % (1.7 - 9.3 %) 4.3 Eosinophils % (0 - 5 %) 0.1 Basophils % (0.0 - 2.0 %) 0 L Absolute Granulocytes (1.4 - 6.5 /CUMM) 15.2 H Absolute Lymphocytes (1.2 - 3.4 /CUMM) 0.3 L Absolute Monocytes (0.10 - 0.60 /CUMM) 0.7 H Absolute Eosinophils (0.0 - 0.7 /CUMM) 0 Absolute Basophils (0.0 - 0.2 /CUMM) 0 PUBS MCHC (33.0 - 37.0 G/DL) 33.2 Miscellaneous Phlebotomy Draw Site RIGHT RADIAL Diagnostic Data EKG Results EKG tracing is independently reviewed, and reveals normal sinus rhythm at 96, left axis deviation, nonspecific T-wave abnormality CXR Results Chest x-ray: Stable enlargement of the cardiac silhouette. No evidence of pneumonia. Assessment/Plan Assessment/Plan Assessment: 1. Acute COPD exacerbation 2. Hypertension 3. Chronic hyponatremia 4. Acute on chronic HFpEF Plan: 1. Antibiotics and steroids as per Pulmonary 2. Echocardiogram 3. Lasix 20 milligrams IV q.12 hours 4. Monitor input and output with daily weights 5. Check basic metabolic profile daily Consult Acknowledgment - Thank you for your consult request.
[2016-11-22 22:46] VITALS: BP 120/80
[2016-11-23 06:37] VITALS: BP 122/68
--- NOTE | 2016-11-23 09:30 | PN- Pulmonary ---
Subjective HPI/Critical Care Issues: The patient is awake and alert. She reports feeling improved. She has less shortness of breath. Her wheezing has improved as well. She offers no new complaints today. Objective Current Medications: Current Medications Sig/Lashon Start time Last Medication Dose Route Stop Time Status Admin Acetaminophen 325 MG Q6P PRN 11/21 1945 AC 11/23 PO 0435 Acetaminophen/ 1 TAB Q8P PRN 11/21 1945 AC 11/21 Hydrocodone Bitart PO 2211 Albuterol Sulfate 3 ML Q4 11/22 1100 AC 11/23 INH 0755 Azithromycin 250 MG DAILY 11/23 1000 AC PO Azithromycin 500 MG 1830 11/22 1830 DC 11/22 Sodium Chloride 250 ML IV 1737 Enoxaparin Sodium 40 MG DAILY 11/21 1937 AC 11/22 SC 1007 Fluticasone 2 PUF BID 11/21 2200 AC 11/23 Propionate INH 0859 Furosemide 20 MG 7:30 AM, & 4:30 PM 11/23 0730 AC IV PUSH Furosemide 40 MG .STK-MED ONE 11/22 1651 DC IV 11/22 1652 Furosemide 20 MG ONCE ONE 11/22 1630 DC 11/22 IV PUSH 11/22 1631 1728 Guaifenesin 600 MG Q12 11/21 2200 AC 11/22 PO 2134 Lisinopril 40 MG DAILY 11/22 1000 AC PO Losartan Potassium 25 MG DAILY 11/21 1946 DC 11/21 PO 2323 Methylprednisolone 40 MG Q8 11/21 2200 AC 11/23 IV 0711 Nystatin 5 ML Q6 11/22 0600 DC 11/22 PO 11/22 1801 1734 Oxybutynin Chloride 5 MG DAILY 11/21 2158 AC 11/22 PO 1001 Tiotropium [place] 1 PUF DAILY 11/21 1945 AC 11/22 INH 1002 Verapamil HCl 360 MG DAILY 11/22 1000 DC PO Verapamil HCl 360 MG DAILY 11/22 1000 AC PO Vital Signs & I&O Last 24 Hrs of Vitals and I&O: Vital Signs Date Time Temp Pulse Resp B/P Pulse O2 O2 Flow FiO2 Ox Delivery Rate 11/23 0854 96 Nasal 4.0L Cannula 11/23 0637 98.8 108 22 122/68 91 Nasal Cannula 11/23 0023 98 Nasal 4.0L Cannula 11/23 0000 98 Nasal 4.0L Cannula 11/22 2246 99.2 106 24 120/80 91 Nasal Cannula 11/22 1645 94 Nasal 4.0L Cannula 11/22 1551 Nasal 4.0L Cannula 11/22 1530 99.2 98 24 120/80 93 Intake & Output 11/23 1600 11/23 0800 11/23 0000 Intake Total 240 Output Total 350 Balance 240 -350 Intake, Oral 240 Output, Urine 350 Patient 154 lb Weight Physical Exam General Appearance Alert, Oriented X3, Cooperative, No Acute Distress Skin No Rashes HEENT Atraumatic, PERRLA, EOMI Neck Supple Cardiovascular Regular Rate, Normal S1, Normal S2, systolic murmur best heard over aortic area. Lungs in respiratory distress, decrease air-entry B/L. use accessorries to breath . no whezzing or additional sounds. Abdomen Normal Bowel Sounds, Soft, No Tenderness Neurological Normal Speech Extremities LE pitting edema B/L Impression/Plan Impression/Plan Impression/Plan: 1. Acute on chronic respiratory failure in the setting of severe COPD. 2. Probable volume overload in the setting of chronic edema. 3. Chronic hyponatremia. 4. Oral candidiasis. 5. Hypertension - HCTZ held due to hyponatremia. 6. Hypothyroidism. 7. Descending aortic aneurysm. 8. Leukocytosis, resolved. Recommendations: * Continue nebs/TRC - every 4 hours [id number]. * Maintain oxygen saturations greater than or equal to 92%. * Decrease IV Solu-Medrol to 40 mg every 12 hours daily. * Complete 5 days of azithromycin. * Agree with nystatin swish and swallow. * Continue Mucinex. * Continue Spiriva. * Continue diuresis as recommended by cardiology.
[2016-11-23 11:07] LABS: ABSOLUTE BASOPHIL COUNT 0 /CUMM (0.0-0.2); ABSOLUTE EOSINOPHIL COUNT 0 /CUMM (0.0-0.7); ABSOLUTE GRANULOCYTE CT 15.9 /CUMM (1.4-6.5); ABSOLUTE LYMPH COUNT 0.3 /CUMM (1.2-3.4); ABSOLUTE MONOCYTE COUNT 1.3 /CUMM (0.10-0.60); BASOPHIL % 0 % (0.0-2.0); EOSINOPHIL % 0.1 % (0-5); GRANULOCYTE % 90.8 % (42.2-75.2); HEMATOCRIT 33.2 % (37-47); MEAN CORPUSCULAR HGB 32.2 PG (27.0-31.0); MEAN CORPUSCULAR HGB CONC 34.3 G/DL (33.0-37.0); MEAN CORPUSCULAR VOLUME 93.7 FL (81.0-99.0); MEAN PLATELET VOLUME 6.7 FL (7.4-10.4); PLATELET COUNT 342 /CUMM (130-400); RBC DISTRIBUTION WIDTH 13.8 % (11.5-14.5); RED BLOOD CELL CT 3.54 /CUMM (4.20-5.40)
[2016-11-23 11:21] LABS: WHITE BLOOD CELL COUNT 17.5 /CUMM (4.8-10.8)
--- NOTE | 2016-11-23 11:35 | PN- Att Addend ---
Attending Addendum Attending Brief Note 89 yr old F with PMH significant for COPD on 4 liters of home oxygen, HTN, HLD, Hypothyroidism, lower extremity venous insufficiney, is being admitted on the floor for acute on chronic respiratory failure with a mild component of CHF. He was seen and examined on the bedside this morning and felt her to be at her baseline and saturating 92% with 4 L of oxygen. Labs reviewed. She will complete her five-day course of Z-Amol, with a taper IV steroids, nystatin switch and swallow for oral thrush, continue with Mucinex and Spiriva, and low-dose IV Lasix. Losartan was stopped as she was also on lisinopril. Patient can be discharged home tomorrow after echo results are obtained on taper steroids and azithromycin to complete a five-day course. Pulmonary and cardiology on board.
[2016-11-23 15:28] VITALS: BP 120/63
--- NOTE | 2016-11-23 16:09 | PN- Housestaff ---
Subjective Follow-up For: COPD exacerbation Subjective: The patient bedside the same. She was adamant that she wanted to leave. She will receive a AMA if she needed to. Spoke with her regarding finishing up IV steroids before going home. She acquiesced. Will likely be discharged tomorrow AM Review of Systems Constitutional: Denies: diaphoresis, weakness. EENTM: Reports: no symptoms. Cardiovascular: Denies: chest pain, palpitations. Respiratory: Reports: no symptoms. Gastrointestinal: Denies: abdominal pain, constipation. Genitourinary: Reports: no symptoms. Musculoskeletal: Reports: no symptoms. Objective Last 24 Hrs of Vital Signs/I&O Vital Signs Date Time Temp Pulse Resp B/P Pulse O2 O2 Flow FiO2 Ox Delivery Rate 11/23 1528 98.7 63 24 120/63 93 Room Air 11/23 1356 95 Nasal 4.0L Cannula 11/23 1137 76 138/63 11/23 1136 76 136/83 11/23 0854 96 Nasal 4.0L Cannula 11/23 0637 98.8 108 22 122/68 91 Nasal Cannula 11/23 0023 98 Nasal 4.0L Cannula 11/23 0000 98 Nasal 4.0L Cannula 11/22 2246 99.2 106 24 120/80 91 Nasal Cannula 11/22 1645 94 Nasal 4.0L Cannula Intake & Output 11/23 1600 11/23 0800 11/23 0000 Intake Total 400 240 Output Total 200 350 Balance 200 240 -350 Intake, Oral 400 240 Number 1 Bowel Movements Output, Urine 200 350 Patient 69.91 kg Weight Physical Exam General Appearance: Alert, Oriented X3, Cooperative, No Acute Distress Skin: No Rashes, No Breakdown HEENT: Atraumatic, PERRLA, Mucous Membr. moist/pink Cardiovascular: Regular Rate, Normal S1, Normal S2, No Murmurs Lungs: AIR MOVEMENT SOUNDS BILATERALLY YESTERDAY. sHE HAS NO WHEEZES. vERY LIGHT CRACKLES AT BASES Abdomen: Soft, No Tenderness Neurological: Normal Gait, Normal Speech Extremities: TRACE EDEMA IN BILATERAL LOWER EXTREMITIES Current Medications: Current Medications Sig/Lashon Start time Last Medication Dose Route Stop Time Status Admin Acetaminophen 325 MG .STK-MED ONE 11/23 430 DC PO 11/23 431 Acetaminophen 325 MG Q6P PRN 11/21 1945 AC 11/23 PO 434 Acetaminophen/ 1 TAB Q8P PRN 11/21 1945 AC 11/21 Hydrocodone Bitart PO 2211 Albuterol Sulfate 3 ML Q4 11/22 1100 AC 11/23 INH 1210 Azithromycin 250 MG DAILY 11/23 1000 AC 11/23 PO 1139 Azithromycin 500 MG 1830 11/22 1830 DC 11/22 Sodium Chloride 250 ML IV 1737 Enoxaparin Sodium 40 MG DAILY 11/21 1937 AC 11/23 SC 1132 Fluticasone 2 PUF BID 11/21 2200 AC 11/23 Propionate INH 0859 Furosemide 20 MG 7:30 AM, & 4:30 PM 11/23 0730 AC IV PUSH Furosemide 40 MG .STK-MED ONE 11/22 1651 DC IV 11/22 1652 Furosemide 20 MG ONCE ONE 11/22 1630 DC 11/22 IV PUSH 11/22 1631 1728 Guaifenesin 600 MG Q12 11/21 2200 AC 11/23 PO 1141 Lisinopril 40 MG DAILY 11/22 1000 AC 11/23 PO 1136 Methylprednisolone 40 MG Q8 11/21 2200 AC 11/23 IV 1511 Nystatin 5 ML Q6 11/22 0600 DC 11/22 PO 11/22 1801 1734 Oxybutynin Chloride 5 MG DAILY 11/21 2158 AC 11/22 PO 1001 Patient Medication 1 ED .STK-MED ONE 11/23 1405 DC Teaching ED 11/23 1406 Tiotropium [place] 1 PUF DAILY 11/21 1945 AC 11/23 INH 1142 Verapamil HCl 360 MG DAILY 11/22 1000 AC 11/23 PO 1137 Last 24 Hrs of Lab/Pedro Results Last 24 Hrs of Labs/Mics: Laboratory Tests 11/23/16 1053: Anion Gap 7, Estimated GFR > 60, BUN/Creatinine Ratio 32.5 H, CBC w Diff NO MAN DIFF REQ, RBC 3.54 L, MCV 93.7, MCH 32.2 H, RDW 13.8, MPV 6.7 L, Gran % 90.8 H, Lymphocytes % 1.7 L, Monocytes % 7.4, Eosinophils % 0.1, Basophils % 0 L, Absolute Granulocytes 15.9 H, Absolute Lymphocytes 0.3 L, Absolute Monocytes 1.3 H, Absolute Eosinophils 0, Absolute Basophils 0, PUBS MCHC 34.3 Assessment/Plan Assessment: 89-year-old female with past medical history significant for COPD on home oxygen , hypertension, hypothyroidism, lower extremity venous insufficiency, thoracic aortic aneurysm presented to emergency department with progressive shortness of breath and admitted for COPD exacerbation and possible CHF. Assessment and plan: # Acute hypoxic respiratory failure likely secondary to COPD exacerbation. -Keep oxygenation with a 92% -[facility] nebs [id number] -Follow-up Sputum/blood cultures -Continue IV Solu-Medrol 40 mg every 12 -Continue IV azithromycin daily -Nystatin swish and swallow for oral thrush secondary to Advair. - Mucinex -Pending pulmonary consult 2. CHF ?Elevated proBNP. Presence of pedal edema along with bilateral crackles on examination. Last echocardiogram from 07/09/2016 shows EF of more than 55%. No wall motion abnormalities. - she received 1 dose of IV Lasix 20 mg, will hold for now on more Lasix her blood pressure is borderline, consider resuming low-dose Lasix at a.m. 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 She was advised to follow-up with her PCP after discharge regarding her blood pressure medication 5. Hypothyroidism -Continue levothyroxine(patient says she has not been taking the thyroid medication for a while now) -We will check TSH and T4 levels. 6.Ascending aorta aneurysm- stable. - A 4.[address] from Nov 2015. Plan was to repeat CT in 6 months. PCP aware. -2 sub-5 mm noncalcified subpleural lung nodules- stable Lovenox for DVT prophylaxis Heart healthy diet Problem List: 1. COPD (chronic obstructive pulmonary disease) Pain Ratin Pain Location: NONE Pain Goal: Remain pain free Pain Plan: NONE Tomorrow's Labs & Rationales: NONE
--- NOTE | 2016-11-23 19:48 | PN- Cardiology ---
Subjective Subjective: Feeling somewhat better. Breathing is improving. No chest pain. No palpitations. No diaphoresis. Objective Vital Signs and I&Os Vital Signs Date Time Temp Pulse Resp B/P Pulse O2 O2 Flow FiO2 Ox Delivery Rate 11/23 1528 98.7 63 24 120/63 93 Room Air 11/23 1356 95 Nasal 4.0L Cannula 11/23 1137 76 138/63 11/23 1136 76 136/83 11/23 0854 96 Nasal 4.0L Cannula 11/23 0637 98.8 108 22 122/68 91 Nasal Cannula 11/23 0023 98 Nasal 4.0L Cannula 11/23 0000 98 Nasal 4.0L Cannula 11/22 2246 99.2 106 24 120/80 91 Nasal Cannula Intake & Output 11/23 1600 11/23 0800 11/23 0000 11/22 1600 11/22 0800 11/22 0000 Intake Total 400 240 500 130 400 Output Total 200 555 087 2652 Balance 200 240 -350 300 -870 400 Intake, IV 30 300 Intake, Oral 400 240 500 100 100 Number 1 0 Bowel Movements Output, Urine 200 250 538 9301 Patient 154 lb 160 lb Weight Physical Exam: Gen: The patient is in no acute distress HEENT: Normal nose, ears, and oropharynx. Pupils equal bilaterally. Conjunctiva normal. Neck: Supple with no JVD, no masses, and no thyromegaly Lungs: Rales in the bases bilaterally with normal respiratory effort Heart: RRR, S1, S2, 2/6 systolic murmur. 2+ peripheral edema, 2+ pulses in the lower extremities bilaterally Abdomen: Soft, nontender, no masses. No hepatomegaly. No splenomegaly Extremities: No clubbing or cyanosis. Normal muscle strength in the upper and lower extremities. Skin: Normal skin turgor with no skin ulcers or lesions noted. Current Medications: Current Medications Sig/Lashon Start time Last Medication Dose Route Stop Time Status Admin Acetaminophen 325 MG .STK-MED ONE 11/23 430 DC PO 11/23 431 Acetaminophen 325 MG Q6P PRN 11/21 1945 AC 11/23 PO 043 Acetaminophen/ 1 TAB Q8P PRN 11/21 1945 AC 11/21 Hydrocodone Bitart PO 2211 Albuterol Sulfate 3 ML Q4 11/22 1100 AC 11/23 INH 1630 Azithromycin 250 MG DAILY 11/23 1000 AC 11/23 PO 1139 Enoxaparin Sodium 40 MG DAILY 11/21 1937 AC 11/23 SC 1132 Fluticasone 2 PUF BID 11/21 2200 AC 11/23 Propionate INH 0859 Furosemide 20 MG 7:30 AM, & 4:30 PM 11/23 0730 AC IV PUSH Guaifenesin 600 MG Q12 11/21 2200 AC 11/23 PO 1141 Lisinopril 40 MG DAILY 11/22 1000 AC 11/23 PO 1136 Methylprednisolone 40 MG Q12 11/23 2199 AC IV Methylprednisolone 40 MG Q8 11/21 2200 DC 11/23 IV 1511 Oxybutynin Chloride 5 MG DAILY 11/21 2158 AC 11/22 PO 1001 Patient Medication 1 ED .STK-MED ONE 11/23 140 KS Teaching ED 11/23 1406 Tiotropium [place] 1 PUF DAILY 11/21 1945 AC 11/23 INH 1142 Verapamil HCl 360 MG DAILY 11/22 999 AC 11/23 PO 1137 Results Last 48 Hrs of Labs/Mics: Laboratory Tests 11/23/16 1053: Anion Gap 7, Estimated GFR > 60, BUN/Creatinine Ratio 32.5 H, CBC w Diff NO MAN DIFF REQ, RBC 3.54 L, MCV 93.7, MCH 32.2 H, RDW 13.8, MPV 6.7 L, Gran % 90.8 H, Lymphocytes % 1.7 L, Monocytes % 7.4, Eosinophils % 0.1, Basophils % 0 L, Absolute Granulocytes 15.9 H, Absolute Lymphocytes 0.3 L, Absolute Monocytes 1.3 H, Absolute Eosinophils 0, Absolute Basophils 0, PUBS MCHC 34.3 11/22/16 0710: Anion Gap 10, Estimated GFR > 60, BUN/Creatinine Ratio 30.0 H, Troponin I 0.02, CBC w Diff NO MAN DIFF REQ, RBC 3.65 L, MCV 93.6, MCH 31.9 H, RDW 13.9, MPV 7.0 L, Gran % 97.4 H, Lymphocytes % 1.5 L, Monocytes % 1.1 L, Eosinophils % 0, Basophils % 0 L, Absolute Granulocytes 8.3 H, Absolute Lymphocytes 0.1 L, Absolute Monocytes 0.1 L, Absolute Eosinophils 0, Absolute Basophils 0, PUBS MCHC 34.1 11/21/16 2318: Troponin I 0.01 11/21/16 8887: Urine Color Cancelled, Urine Clarity Cancelled, Urine pH Cancelled, Ur Specific [place] Cancelled, Urine Protein Cancelled, Urine Ketones Cancelled, Urine Nitrite Cancelled, Urine Bilirubin Cancelled, Urine Urobilinogen Cancelled, Ur Leukocyte Esterase Cancelled, Ur Microscopic Cancelled, Urine Hemoglobin Cancelled, Urine Glucose Cancelled Assessment/Plan Assessment/Plan Assessment: 1. Acute COPD exacerbation 2. Hypertension 3. Chronic hyponatremia 4. Acute on chronic HFpEF Plan: 1. Antibiotics and steroids as per Pulmonary 2. Echocardiogram pending 3. Continue IV Lasix 4. Monitor input and output 5. Check basic metabolic profile daily Continue telemetry? No
[2016-11-23 22:16] VITALS: BP 106/80
[2016-11-24 07:25] VITALS: BP 160/100
--- NOTE | 2016-11-24 08:37 | PN- Housestaff ---
RODGER LEWIS,TRU 11/24/16 0837: Subjective Follow-up For: Acute exacerbation of COPD Complaints: no complaints Subjective: I examined and followed-up the patient today. She is lying comfortably in her chair but initially was complaining that she could not breathe. After thorough assessment/examination, she appeared clinically stable but was reassessed by respiratory therapist after me. After an hour, and a breathing treatment, she mentioned that she is already feeling better and she thinks she is ready to go home. Vitals otherwise stable, no issues overnight. Review of Systems Constitutional: Reports: no symptoms. Cardiovascular: Reports: no symptoms. Respiratory: Reports: no symptoms. Objective Last 24 Hrs of Vital Signs/I&O Vital Signs Date Time Temp Pulse Resp B/P Pulse O2 O2 Flow FiO2 Ox Delivery Rate 11/24 1445 99.1 78 20 130/80 92 Nasal 4.0L Cannula 11/24 0846 90 160/100 11/24 0821 94 Nasal 4.0L Cannula 11/24 0800 Nasal 4.0L Cannula 11/24 0725 98.1 90 24 160/100 93 Nasal 4.0L Cannula 11/24 0707 95 154/90 11/24 0035 97 Nasal 4.0L Cannula 11/24 0000 93 Nasal 4.0L Cannula 11/23 2216 98.0 82 20 106/80 93 Intake & Output 11/24 1600 11/24 0800 11/24 0000 Intake Total 720 240 120 Output Total 800 1300 Balance -80 -1060 120 Intake, IV 0 Intake, Oral 720 240 120 Number 2 0 Bowel Movements Output, Urine 800 1300 Physical Exam General Appearance: Alert, Oriented X3, Cooperative, No Acute Distress, is on 4L /min O2 Lymphatic: Cervical nl Cardiovascular: Regular Rate, Normal S1, Normal S2 Lungs: b/l crackles, but no wheezes Abdomen: Normal Bowel Sounds, Soft, No Tenderness Current Medications: Current Medications Sig/Lashon Start time Last Medication Dose Route Stop Time Status Admin Acetaminophen 325 MG Q6P PRN 11/21 1945 DCD 11/23 PO 0435 Acetaminophen/ 1 TAB Q8P PRN 11/21 1945 DCD 11/21 Hydrocodone Bitart PO 2211 Albuterol Sulfate 3 ML Q4 11/22 1100 DCD 11/24 INH 1147 Azithromycin 250 MG DAILY 11/23 1000 DCD 01/03 PO 0846 Enoxaparin Sodium 40 MG DAILY 11/21 1937 DCD 11/24 SC 0847 Fluticasone 2 PUF BID 11/21 2200 DCD 11/24 Propionate INH 0847 Furosemide 20 MG 7:30 AM, & 4:30 PM 11/23 0730 DCD 11/24 IV PUSH 1041 Guaifenesin 600 MG Q12 11/21 2200 DCD 11/24 PO 0843 Lisinopril 40 MG DAILY 11/22 1000 DCD 11/24 PO 0846 Methylprednisolone 40 MG Q12 11/230 DCD 11/24 IV 1041 Oxybutynin Chloride 5 MG DAILY 11/21 2158 DCD 11/22 PO 1001 Tiotropium [place] 1 PUF DAILY 11/21 1945 DCD 11/24 INH 0847 Verapamil HCl 360 MG DAILY 11/22 1000 DCD 11/24 PO 0707 Last 24 Hrs of Lab/Pedro Results Last 24 Hrs of Labs/Mics: Laboratory Tests 11/24/16 1110: Anion Gap 9, Estimated GFR > 60, BUN/Creatinine Ratio 45.0 H, CBC w Diff NO MAN DIFF REQ, RBC 3.69 L, MCV 93.9, MCH 31.0, RDW 13.9, MPV 7.1 L, Gran % 89.3 H, Lymphocytes % 2.3 L, Monocytes % 8.4, Eosinophils % 0, Basophils % 0 L, Absolute Granulocytes 11.7 H, Absolute Lymphocytes 0.3 L, Absolute Monocytes 1.1 H, Absolute Eosinophils 0, Absolute Basophils 0, PUBS MCHC 33.0 Assessment/Plan Assessment: 89-year-old female with past medical history significant for COPD on 4L/min home oxygen, hypertension, hypothyroidism, lower extremity venous insufficiency, thoracic aortic aneurysm presented to emergency department with progressive shortness of breath and admitted for COPD exacerbation and possible CHF. Assessment and plan: # Acute hypoxic respiratory failure likely secondary to COPD exacerbation. -Keep oxygenation with a 92% -TRC nebs [id number] -Follow-up Sputum/blood cultures -Continue IV Solu-Medrol 40 mg every 12 -Continue IV azithromycin daily -Nystatin swish and swallow for oral thrush secondary to Advair. - Mucinex -Pending pulmonary consult 2. CHF ?Elevated proBNP. Presence of pedal edema along with bilateral crackles on examination. Last echocardiogram from 07/09/2016 shows EF of more than 55%. No wall motion abnormalities. - she received 1 dose of IV Lasix 20 mg, will hold for now on more Lasix her blood pressure is borderline, consider resuming low-dose Lasix at a.m. or give her 1 dose if worsening shortness of breath -According to cardiology, she is supposed to get Lasix 20 mg by mouth upon discharge, and is supposed to hold HCTZ once he gets Lasix. 3.Hyponatremia: Chronic, baseline around 130 4.Hypertension -Continue Verapamil and Lisinopril if blood pressure allowed, initially held. -Will hold losartan and hydrochlorothiazide for now. This medication is still held upon discharge according to upper tier, as she will be receiving Lasix. If blood pressure is not under control with these medications, including Lasix, seen is to call upper tier or visited emergency department immediately. She as well as her understand the situation and agree with the plan. - She was advised to follow-up with her PCP and Ldr Nurse after discharge regarding her blood pressure medication. 5. Hypothyroidism -Continue levothyroxine(patient says she has not been taking the thyroid medication for a while now) -TSH and free T4 level normal. 6.Ascending aorta aneurysm- stable. - A 4.[address] from Nov 2015. Plan was to repeat CT in 6 months. PCP aware. -2 sub-5 mm noncalcified subpleural lung nodules- stable Lovenox for DVT prophylaxis Heart healthy diet Code status: DNR/DNI Problem List: 1. COPD (chronic obstructive pulmonary disease) Pain Ratin Pain Location: - Pain Goal: Remain pain free Pain Plan: prn Tomorrow's Labs & Rationales: none, as the patient is being discharged today DEB DUBOSE MD 11/24/16 1642: Attending MD Review Statement Attending Statement Attending MD Statement: examined this patient, discuss w/resident/PA/PRISON GUARD SUPERVISOR, agreed w/resident/PA/PRISON GUARD SUPERVISOR, reviewed EMR data (avail) Attending Assessment/Plan: Patient is back to her baseline breathing status. She is comfortable, speaking in complete sentences, and able to walk with assistance. patient is stable for discharge home with prednisone taper, continue home oxygen, continue home medications, visiting nurse services, outpatient pulmonary follow up
[2016-11-24 12:27] LABS: ABSOLUTE BASOPHIL COUNT 0 /CUMM (0.0-0.2); ABSOLUTE EOSINOPHIL COUNT 0 /CUMM (0.0-0.7); ABSOLUTE GRANULOCYTE CT 11.7 /CUMM (1.4-6.5); ABSOLUTE LYMPH COUNT 0.3 /CUMM (1.2-3.4); ABSOLUTE MONOCYTE COUNT 1.1 /CUMM (0.10-0.60); BASOPHIL % 0 % (0.0-2.0); EOSINOPHIL % 0 % (0-5); GRANULOCYTE % 89.3 % (42.2-75.2); HEMATOCRIT 34.7 % (37-47); MEAN CORPUSCULAR VOLUME 93.9 FL (81.0-99.0); MEAN PLATELET VOLUME 7.1 FL (7.4-10.4); PLATELET COUNT 345 /CUMM (130-400); RBC DISTRIBUTION WIDTH 13.9 % (11.5-14.5); RED BLOOD CELL CT 3.69 /CUMM (4.20-5.40)
[2016-11-24 13:05] LABS: WHITE BLOOD CELL COUNT 13.1 /CUMM (4.8-10.8)
[2016-11-24] MEDS ORDERED: GUAIFENESIN ER600 MG PO (13:37)
[2016-11-24] MEDS ORDERED: OXYBUTYNIN CHLOR5 M2 PO (13:37)
[2016-11-24] MEDS ORDERED: PREDNISONE10 M2 PO (13:37)
--- NOTE | 2016-11-24 13:40 | Patient Discharge Instructions ---
Discharge Instructions General Discharge Information You were seen/treated for: ACUTE EXACERBATION OF COPD Special Instructions: Please visit your PCP within seven days of discharge. Hold HCTZ medication till you take Lasix (new medication). If blood pressure is not under control, please call your Resource Specialist Teacher sooner, else visit the ED. Please return to the emergency of worsening of symptoms (increased shortness of breath, cough with more sputum production). Diet Continue normal diet: Yes Recommended Diet: Heart Healthy Activity Full Activity/No Limits: No Activity Self Limited: Yes Acute Coronary Syndrome Inclusion Criteria At DC or during hospital stay patient has or had the following: ACS DIAGNOSIS No Discharge Core Measures Meds if any: Prescribed or Continued at Discharge Meds if any: NOT Prescribed or Continued at Discharge Congestive Heart Failure Inclusion Criteria At DC or during hospital stay patient has or had the following: CHF DIAGNOSIS No Discharge Core Measures Meds if any: Prescribed or Continued at Discharge Meds if any: NOT Prescribed or Continued at Discharge Cerebrovascular accident Inclusion Criteria At DC or during hospital stay patient has or had the following: CVA/TIA Diagnosis No Discharge Core Measures Meds if any: Prescribed or Continued at Discharge Meds if any: NOT Prescribed or Continued at Discharge Venous thromboembolism Inclusion Criteria VTE Diagnosis No VTE Type NONE VTE Confirmed by (Test) NONE Discharge Core Measures - Per Current guidelines, there needs to be overlap - treatment for the first 5 days of Warfarin therapy. - If discharged on Warfarin prior to 5 days of - overlap therapy, the patient will need to be - assessed for post discharge needs including - *Post discharge parental anticoagulation - *Warfarin and/or parental anticoagulation education - *Follow up date to check INR post discharge At least 5 days overlap therapy as Inpatient No Meds if any: Prescribed or Continued at Discharge Note: Overlap Therapy is Warfarin and Anticoagulant Meds if any: NOT Prescribed or Continued at Discharge
--- NOTE | 2016-11-24 13:46 | Discharge Summary ---
Visit Information Visit Dates Admission Date: 11/21/16 Discharge Date: 11/24/16 Hospital Course Course Attending Physician: DEB DUBOSE MD Primary Care Physician: DIVINA GUTIERREZ MD Other Care Providers: Dr Dori Buitrago, Hot Box Operator Dr Jacinto Galindo, Support Service Tech Hospital Course: Ms Alcala is a 89-year-old pleasant lady with past medical history significant for COPD on 4L/min home oxygen, hypertension, hypothyroidism, lower extremity venous insufficiency, thoracic aortic aneurysm presented to emergency department with progressive shortness of breath and admitted for COPD exacerbation and possible CHF. On admission, she was hypoxic with compensatory alkalosis, had leukocytosis with WBC 16.2, hyponatremic with Na 129, and x-ray did not reveal any evidence of pneumonia. She was managed in the general medical floor for the following issues: # Acute hypoxic respiratory failure likely secondary to COPD exacerbation She was treated for the exacerbation with IV steroids, later changed to oral steroid, therapy, total respiratory care with bronchodilator nebulizations, and IV antibiotics to cover typical organisms that can cause acute exacerbation of COPD. Dr Dori Buitrago, payable manager, was consulted who suggested the treatment plan as well. Patient improving with symptoms, but still needs to continue home oxygen, oral steroids, and nebulization. Family aware of the situation and request to discharge was made by the patient herself and her family member, after discussing her situation and options. Family agreed to continue therapy upon discharge and later follow up as well. Visiting nurse service will help her with the medication and care at home. # CHF ?Elevated proBNP Presence of pedal edema along with bilateral bibasilar crackles on examination was suggestive of CHF. Last echocardiogram from 07/09/2016 shows EF of more than 55% with no wall motion abnormalities. She received small dose of IV Lasix 20 mg for worsening shortness of breath, but was later held due to low blood pressure. According to cardiology, she is supposed to get Lasix 20 mg by mouth upon discharge, and is supposed to hold HCTZ when she gets Lasix. Medications managed accordingly, and explained to the patient as well as her . # Hyponatremia Chronic, baseline around 130. Number did not change during her stay. Might need further follow-up at PCP office for monitoring this. # Hypertension Verapamil and Losartan and Valsartan/Hydrochlorothiazide initially. Valsartan/ HCTZ held upon discharge per Support Service Tech, as Lasic was added. She needs to follow up with Support Service Tech within seven days- ten days of discharge. She as well as her understand the situation and agree with the plan. # Hypothyroidism Levothyroxine was continued during her stay. Patient says she has not been taking the thyroid medication for a while now). TSH and free T4 level normal. # Ascending aorta aneurysm- stable - A 4.[address] from Nov 2015. Plan was to repeat CT in 6 months. PCP is aware. #Stable Pulmonary nodules, both sides -2 sub-5 mm noncalcified subpleural lung nodules- stable. Specifically, previously identified two sub-5 mm noncalcified subpleural lung nodules were seen within the left lower and right lower lobe of the lung appeared unchanged in CT Chest done on 12/03/15. This might need follow up with PCP and CT Chest. Patient notified about the condition and referred to PCP for the same as well after discharge. CT not done in this visit. She received Lovenox for DVT prophylaxis. She was on Heart healthy diet, and she holds code status as DNR/DNI. Complications: None Allergies: Coded Allergies: NO KNOWN ALLERGIES (05/29/16) Significant Procedures: XAM TYPE: RAD - XRY-PORTABLE CHEST XRAY EXAMINATION: XR PORTABLE CHEST CLINICAL INFORMATION: Hypoxia. COPD. Evaluate for pneumonia. COMPARISON: Previous chest x-rays most recent May [address] scans most recent November 2015 TECHNIQUE: AP portable chest FINDINGS: The cardiac silhouette is enlarged but stable. Hilar and mediastinal contours are unremarkable. The lungs are clear without evidence of pneumonia. There is no pleural effusion or pneumothorax. 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 IMPRESSION: Stable enlargement of the cardiac silhouette. No evidence of pneumonia. DICTATED BY: LUCRETIA LEWIS,NANCY Haynes DATE/TIME DICTATED:11/21/161637 SOLE CUTTER:MITRA DATE/TIME TRANSCRIBED:11/21/161637 EXAM TYPE: CAT - CT CHEST WO IV CONTRAST EXAMINATION: CT CHEST WITHOUT CONTRAST CLINICAL INFORMATION: Aneurysm of the thoracic aorta. Pulmonary nodule. COMPARISON: CT of the chest done on 05/26/2015. TECHNIQUE: Multidetector volumetric CT imaging of the chest was done. Axial MIP volume rendering provided. Sagittal and coronal reformatted images were obtained. DLP: 738.28 mGy-cm. FINDINGS: SECURITY LEAD: Post arthroplasty-related changes are noted at the right shoulder. No discrete focal abnormality is present. LUNGS: Persistent noncalcified subpleural 2 mm lung nodule at left lower lobe of the lung (image #22/52 of series 3) and perifissural 3 mm noncalcified nodule at right lower lobe of the lung (image #38/52 of series 3) appear stable since0 05/26/2015. Hypoventilatory changes are present at both lung bases. No new abnormalities. MEDIASTINUM: Persistent stable aneurysmal dilatation of the ascending thoracic aorta is noted, measures 4.4 cm at its maximum dimension (image #25/52 of series 2). Atherosclerotic disease including coronary arterial calcifications are noted. Persistent stable mild cardiomegaly is present. There is no pathologically enlarged mediastinal, hilar lymphadenopathy present. Overall, no significant change since the prior study dated 05/26/2015. PLEURA: There is no pleural effusion. No pleural mass or thickening. AXILLA: No lymphadenopathy. UPPER ABDOMEN: There is no adrenal mass present, unchanged. OSSEOUS STRUCTURES: Partially visualized right shoulder hemiarthroplasty-related hardware appears intact. Severe degenerative changes are noted at the left glenohumeral joint, unchanged. No suspicious lytic or sclerotic abnormality is seen. IMPRESSION: 1. No significant change since the most recent prior CT of the chest done on 05/26/2018. 2. Specifically, previously identified two sub-5 mm noncalcified subpleural lung nodules seen within the left lower and right lower lobe of the lung appear unchanged. 3. Stable appearance of the ascending thoracic aortic aneurysm. Various management parameters for solitary pulmonary nodules are in the literature. According to the Fleischner Society, recommendations for pulmonary nodules are as follows: Nodule size < or = to 4 mm in LOW RISK PATIENTS: No follow up needed. Nodule size < or = to 4 mm in HIGH RISK PATIENTS: Follow up CT at 12 months; if unchanged, no further follow up. Nodule size > 4-6 mm in LOW RISK PATIENTS: Follow up CT at 12 months; if unchanged, no further follow up. Nodule size > 4-6 mm in HIGH RISK PATIENTS: Initial follow up CT at 6-12 months, then at 18-24 months if no change. Nodule size > 6-8 mm in LOW RISK PATIENTS: Initial follow up CT at 6-12 months, then at 18-24 months if no change. Nodule size > 6-8 mm in HIGH RISK PATIENTS: Initial follow up CT at 3-6 months, then 9-12 months and 24 months if no change. Nodule size > 8 mm in LOW RISK PATIENTS: Follow up CT at around 3, 9, and 24 months, dynamic contrast-enhanced CT, PET, and/or biopsy. Nodule size > 8 mm in HIGH RISK PATIENTS: Same as for low-risk patients. DICTATED BY: MARIA TERESA GARCIA MD DATE/TIME DICTATED:12/03/151425 SOLE CUTTER:MITRA DATE/TIME TRANSCRIBED:12/03/151425 Pertinent Lab Results: Laboratory Tests 11/24/16 1110: Anion Gap 9, Estimated GFR > 60, BUN/Creatinine Ratio 45.0 H, CBC w Diff NO MAN DIFF REQ, RBC 3.69 L, MCV 93.9, MCH 31.0, RDW 13.9, MPV 7.1 L, Gran % 89.3 H, Lymphocytes % 2.3 L, Monocytes % 8.4, Eosinophils % 0, Basophils % 0 L, Absolute Granulocytes 11.7 H, Absolute Lymphocytes 0.3 L, Absolute Monocytes 1.1 H, Absolute Eosinophils 0, Absolute Basophils 0, PUBS MCHC 33.0 11/23/16 1053: Anion Gap 7, Estimated GFR > 60, BUN/Creatinine Ratio 32.5 H, CBC w Diff NO MAN DIFF REQ, RBC 3.54 L, MCV 93.7, MCH 32.2 H, RDW 13.8, MPV 6.7 L, Gran % 90.8 H, Lymphocytes % 1.7 L, Monocytes % 7.4, Eosinophils % 0.1, Basophils % 0 L, Absolute Granulocytes 15.9 H, Absolute Lymphocytes 0.3 L, Absolute Monocytes 1.3 H, Absolute Eosinophils 0, Absolute Basophils 0, PUBS MCHC 34.3 11/22/16 0710: Anion Gap 10, Estimated GFR > 60, BUN/Creatinine Ratio 30.0 H, Troponin I 0.02, CBC w Diff NO MAN DIFF REQ, RBC 3.65 L, MCV 93.6, MCH 31.9 H, RDW 13.9, MPV 7.0 L, Gran % 97.4 H, Lymphocytes % 1.5 L, Monocytes % 1.1 L, Eosinophils % 0, Basophils % 0 L, Absolute Granulocytes 8.3 H, Absolute Lymphocytes 0.1 L, Absolute Monocytes 0.1 L, Absolute Eosinophils 0, Absolute Basophils 0, PUBS MCHC 34.1 11/21/16 2318: Troponin I 0.01 11/21/16 1656: Anion Gap 10, Estimated GFR > 60, BUN/Creatinine Ratio 36.7 H, Glucose 110 H, Calcium 8.8, Total Bilirubin 0.7, AST 24, ALT 28, Alkaline Phosphatase 68, Troponin I 0.03, Mpd-U-Zndkradorzq Pept 3930 H, Total Protein 6.6, Albumin 4.0, Globulin 2.6, Albumin/Globulin Ratio 1.5, TSH 2.320, Free T4 1.33, PT 10.7, INR 1.02, APTT 28, CBC w Diff NO MAN DIFF REQ, RBC 3.78 L, MCV 94.1, MCH 31.3 H, RDW 13.8, MPV 6.8 L, Gran % 93.7 H, Lymphocytes % 1.9 L, Monocytes % 4.3, Eosinophils % 0.1, Basophils % 0 L, Absolute Granulocytes 15.2 H, Absolute Lymphocytes 0.3 L, Absolute Monocytes 0.7 H, Absolute Eosinophils 0, Absolute Basophils 0, PUBS MCHC 33.2 11/21/16 1550: pH 7.42, pCO2 52 H, pO2 60 L, HCO3 33 H, ABG O2 Sat (Measured) 90.0 L, Carboxyhemoglobin 1.4 L, O2 Concentration % 5L, O2 Delivery Method N/C, Phlebotomy Draw Site RIGHT RADIAL Disposition Summary Disposition Principal Diagnosis: ACUTE EXACERBATION OF COPD Additional Diagnosis: hypertension, hypothyroidism, lower extremity venous insufficiency, thoracic aortic aneurysm Discharge Disposition: home or self care Discharge Instructions General Discharge Information Code Status: Do Not Intubate Patient's Diet: Hearty Healthy Patient's Activity: As tolerated Follow-Up Instructions/Appts: Please visit your PCP within seven days of discharge. Hold HCTZ medication till you take Lasix (new medication). If blood pressure is not under control, please call your Support Service Tech sooner, else visit the ED. Please return to the emergency of worsening of symptoms (increased shortness of breath, cough with more sputum production). Medications at Discharge Discharge Medications: Continue taking these medications: VERAPAMIL HCL (Verapamil ER) 240 MG TABLET.ER 360 Milligram ORAL DAILY Comments: Last Taken: 05/28/15 Time: 1000 Levothyroxine Sodium (Levothroid) 0.025 MG TAB 0.025 Milligram ORAL DAILY Comments: Last Taken: 05/28/15 Time: 0600 Tiotropium Lysite (Spiriva) 18 MCG CAP.W.DEV 1 Capsule Inhale through mouth DAILY Fluticasone-Salmeterol (Advair 100-50 Diskus) 100 MCG-50 MCG/DOSE BLST.W.DEV 1 Puff Inhale through mouth TWICE DAILY Comments: Last Taken: SYMBICORT GIVEN 05/28/15 Time: 1000 Valsartan/Hydrochlorothiazide (Valsartan-Hctz 320-25 MG Tab) 1 EACH TABLET 1 Tablet ORAL DAILY Qty = 90 Hydrocodone/Acetaminophen (Hydrocodon-Acetaminophen 5-325) 5 MG-325 MG TABLET 1-2 Tablet ORAL EVERY 8 HOURS NEEDED as needed for pain Qty = 20 Meloxicam (Mobic) 7.5 MG TABLET 1 Tablet ORAL DAILY Qty = 7 Start taking the following new medications: Guaifenesin (Guaifenesin ER) 600 MG TAB.ER.12H 600 Milligram ORAL EVERY 12 HOURS Qty = 10 No Refills Azithromycin (Azithromycin) 250 MG TABLET 250 Milligram ORAL DAILY Qty = 3 No Refills Prednisone (Prednisone) 10 MG TABLET 1 Tablet ORAL See Instructions Qty = 30 No Refills Instructions: TAKE 4 TABS FOR THREE DAYS (11/25/15-11/27/15) TAKE 3 TABS FOR THREE DAYS (11/28/15-11/30/15) TAKE 2 TABS FOR THREE DAYS (12/01/15-12/03/15) TAKE 1 TAB FOR THREE DAYS (12/04/15-1-12/06/15) Fosinopril Sodium (Fosinopril Sodium) 40 MG TABLET 1 Tablet ORAL DAILY Qty = 30 No Refills Furosemide (Furosemide) 20 MG TABLET 1 Tablet ORAL DAILY Qty = 30 No Refills Instructions: Hold HCTZ (one of your BP medication) while taking this med. Call national account representative if BP not under control. Copies To: MATT LEWIS,DIVINA Simpson
[2016-11-24] MEDS ORDERED: AZITHROMYCIN250 M1 PO (13:54)
[2016-11-24 14:45] VITALS: BP 130/80
--- NOTE | 2016-11-24 15:57 | PN- Cardiology ---
Subjective Subjective: The patient reports that she is feeling well. Shortness of breath is better. She continues to have lower extremity which has been a long-standing problem. No chest pain. No palpitations. No diaphoresis. She notes that her test engineering intern is Dr. Carrasco at [place] Objective Vital Signs and I&Os Vital Signs Date Time Temp Pulse Resp B/P Pulse O2 O2 Flow FiO2 Ox Delivery Rate 11/24 1445 99.1 78 20 130/80 92 Nasal 4.0L Cannula 11/24 0846 90 160/100 11/24 0821 94 Nasal 4.0L Cannula 11/24 0800 Nasal 4.0L Cannula 11/24 0725 98.1 90 24 160/100 93 Nasal 4.0L Cannula 11/24 0707 95 154/90 11/24 0035 97 Nasal 4.0L Cannula 11/24 0000 93 Nasal 4.0L Cannula 11/23 2216 98.0 82 20 106/80 93 11/23 1630 94 Nasal 4.0L Cannula Intake & Output 11/24 1600 11/24 0800 11/24 0000 11/23 1600 11/23 0800 11/23 0000 Intake Total 720 452 114 7665 240 Output Total 800 1300 200 350 Balance -80 -2112 415 8421 240 -350 Intake, IV 0 Intake, Oral 720 554 390 6000 240 Number 2 0 1 Bowel Movements Output, Urine 800 1300 200 350 Patient 154 lb Weight Physical Exam: Gen: The patient is in no acute distress HEENT: Normal nose, ears, and oropharynx. Pupils equal bilaterally. Conjunctiva normal. Neck: Supple with no JVD, no masses, and no thyromegaly Lungs: Rales in the bases bilaterally with normal respiratory effort Heart: RRR, S1, S2, 2/6 systolic murmur. 2+ peripheral edema, 2+ pulses in the lower extremities bilaterally Abdomen: Soft, nontender, no masses. No hepatomegaly. No splenomegaly Extremities: No clubbing or cyanosis. Normal muscle strength in the upper and lower extremities. Skin: Normal skin turgor with no skin ulcers or lesions noted. Current Medications: Current Medications Sig/[place] Start time Last Medication Dose Route Stop Time Status Admin Acetaminophen 325 MG Q6P PRN 11/21 1945 AC 11/23 PO 0435 Acetaminophen/ 1 TAB Q8P PRN 11/21 1945 AC 11/21 Hydrocodone Bitart PO 2211 Albuterol Sulfate 3 ML Q4 11/22 1100 AC 11/24 INH 1147 Azithromycin 250 MG DAILY 11/23 1000 AC 11/24 PO 0846 Enoxaparin Sodium 40 MG DAILY 11/21 1937 AC 11/24 SC 0847 Fluticasone 2 PUF BID 11/21 2200 AC 11/24 Propionate INH 0847 Furosemide 20 MG 7:30 AM, & 4:30 PM 11/23 07 AC 11/24 IV PUSH 1041 Guaifenesin 600 MG Q12 11/21 2200 AC 11/24 PO 0843 Lisinopril 40 MG DAILY 11/22 1000 AC 11/24 PO 0846 Methylprednisolone 40 MG Q12 11/23 2199 AC 11/24 IV 1041 Methylprednisolone 40 MG Q8 11/21 2200 DC 11/23 IV 1511 Oxybutynin Chloride 5 MG DAILY 11/21 2158 AC 11/22 PO 1001 Tiotropium [place] 1 PUF DAILY 11/21 1945 AC 11/24 INH 0847 Verapamil HCl 360 MG DAILY 11/22 999 AC 11/24 PO 0707 Results Last 48 Hrs of Labs/Mics: Laboratory Tests 11/24/16 1110: Anion Gap 9, Estimated GFR > 60, BUN/Creatinine Ratio 45.0 H, CBC w Diff NO MAN DIFF REQ, RBC 3.69 L, MCV 93.9, MCH 31.0, RDW 13.9, MPV 7.1 L, Gran % 89.3 H, Lymphocytes % 2.3 L, Monocytes % 8.4, Eosinophils % 0, Basophils % 0 L, Absolute Granulocytes 11.7 H, Absolute Lymphocytes 0.3 L, Absolute Monocytes 1.1 H, Absolute Eosinophils 0, Absolute Basophils 0, PUBS MCHC 33.0 11/23/16 1053: Anion Gap 7, Estimated GFR > 60, BUN/Creatinine Ratio 32.5 H, CBC w Diff NO MAN DIFF REQ, RBC 3.54 L, MCV 93.7, MCH 32.2 H, RDW 13.8, MPV 6.7 L, Gran % 90.8 H, Lymphocytes % 1.7 L, Monocytes % 7.4, Eosinophils % 0.1, Basophils % 0 L, Absolute Granulocytes 15.9 H, Absolute Lymphocytes 0.3 L, Absolute Monocytes 1.3 H, Absolute Eosinophils 0, Absolute Basophils 0, PUBS MCHC 34.3 Assessment/Plan Assessment/Plan Assessment: 1. Acute COPD exacerbation 2. Hypertension 3. Chronic hyponatremia 4. Lower extremity edema, likely Acute on HFpEF Plan: 1. Antibiotics and steroids as per Pulmonary 2. Echocardiogram pending. This may be done as an outpatient if she is ready for discharge. 3. I recommend that she be discharged on Lasix 20 mg daily for the lower extremity edema. 4. HCTZ should be discontinued while she is on the Lasix. 5. She should follow up with her test engineering intern, Dr. Carrasco, in 2 weeks Continue telemetry? Not applicable
[2016-11-24] MEDS ORDERED: FOSINOPRIL SODI40 M1 PO (16:19)
[2016-11-24] MEDS ORDERED: FUROSEMIDE20 M1 PO (17:38)
== END 2016-11-24 17:45 | disposition home health service (06) | DRG 190 ==
LOC: ERH 14:54 → ERHI 18:43 → 2NA 18:43
PROVIDERS: Emergency Medicine; Student in an Organized Health Care Education/Training Program; ADMIT Internal Medicine
DX: J44.1 Chronic obstructive pulmonary disease with (acute) exacerbation (principal); J96.21 Acute and chronic respiratory failure with hypoxia; I50.33 Acute on chronic diastolic (congestive) heart failure; E87.1 Hypo-osmolality and hyponatremia; B37.0 Candidal stomatitis; I11.0 Hypertensive heart disease with heart failure
CPT/HCPCS: 2NASP; 36415; 82436; 87040; 87070; 87804; 87804-59; 93005; 93010; 96374; 97001-GP; 97110-GO; 97116-GO; 97161-GP; 99291; J0456; J1650; J1940; J2920; J2930; J3490; J7040

== ENCOUNTER 2016-12-06 09:10 | Inpatient (IN) | payer OTHER, MEDICARE ==
[~2016-12-06] VITALS: Ht 139.7 cm; Wt 77.3 kg
[~2016-12-06 09:10] MED LIST changes: +AZITHROMYCIN250 M1 PO; +FOSINOPRIL SODI40 M1 PO; +FUROSEMIDE20 M1 PO; +GUAIFENESIN ER600 MG PO; +OXYBUTYNIN CHLOR5 M2 PO; +PREDNISONE10 M2 PO
--- NOTE | 2016-12-06 09:36 | ED DYSPNEA/ASTHMA COMPLAINT ---
History of Present Illness General Chief Complaint: Dyspnea (COPD, CHF, Other) Stated Complaint: SOB, LOW O2 SATS Source: patient, old records, EMS Exam Limitations: clinical condition, poor historian Allergies Coded Allergies: NO KNOWN ALLERGIES (05/29/16) Reconcile Medications Albuterol Sulfate (Proventil Hfa) 90 MCG HFA.AER.AD 2 PUF INH 4 TIMES/DAY copd (Reported) Azithromycin 250 MG TABLET 250 MG PO DAILY LUNG INFECTION Fluticasone-Salmeterol (Advair 100-50 Diskus) 100 MCG-50 MCG/DOSE BLST.W.DEV 1 PUF INH BID BREATING (Reported) Fosinopril Sodium 40 MG TABLET 1 TAB PO DAILY BLOOD PRESSURE Furosemide 20 MG TABLET 1 TAB PO DAILY CHF Hold HCTZ (one of your BP medication) while taking this med. Call plastic cnc machine operator if BP not under control. Guaifenesin (Guaifenesin ER) 600 MG TAB.ER.12H 600 MG PO Q12 MUCOUS THINNER Levothyroxine Sodium (Levothroid) 0.025 MG TAB 0.025 MG PO DAILY THYROIDS ( Reported) Prednisone 10 MG TABLET 1 TAB PO SI COPD TAKE 4 TABS FOR THREE DAYS (11/25/15-11/27/15) TAKE 3 TABS FOR THREE DAYS (11/28/15-11/30/15) TAKE 2 TABS FOR THREE DAYS (12/01/15-12/03/15) TAKE 1 TAB FOR THREE DAYS (12/04/15--12/06/15) Tiotropium [place] (Spiriva) 18 MCG CAP.W.DEV 1 CAP INH DAILY BREATHING ( Reported) Valsartan/Hydrochlorothiazide (Valsartan-Hctz 320-25 MG Tab) 1 EACH TABLET 1 TAB PO DAILY HEART (Reported) VERAPAMIL HCL (Verapamil ER) 240 MG TABLET.ER 360 MG PO DAILY BLOOD PRESSURE (Reported) Triage Nurses Notes Reviewed? yes HPI: Patient is an 89-year-old female brought in by ambulance for evaluation of dyspnea, low oxygen saturation, low blood pressure, low oxygen saturation. Patient was discharged from [facility] approximately 2 weeks ago for acute respiratory failure. Today patient's breathing was significantly worse. Dyspnea is currently severe, no alleviating factors. Patient was given a DuoNeb treatment by EMS during transport. Pain is 0 out of 10. Denies fevers. (MARYLOU ACUNA) Vital Signs & Intake/Output Vital Signs & Intake/Output Vital Signs Date Time Temp Pulse Resp B/P Pulse O2 O2 Flow FiO2 Ox Delivery Rate 12/06 1255 98.3 99 24 128/79 94 BIPAP 75% 12/06 1137 100 95 12/06 1128 98.3 103 24 124/80 83 BIPAP 40% 12/06 1056 98.6 91 24 115/89 86 BIPAP 40% 12/06 1026 89 80/60 12/06 0957 96 12/06 0956 96 BIPAP 40% 12/06 0920 74 Nasal 4.0L Cannula 12/06 0818 98.6 109 22 110/59 79 Nasal 4.0L Cannula Past History Travel History Traveled to [place] past 21 day No Medical History Any Pertinent Medical History? 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 No (MARYLOU ACUNA) Review of Systems Review of Systems Constitutional: Reports: malaise, weakness. EENTM: Reports: no symptoms. Respiratory: Reports: see HPI. Cardiovascular: Reports: peripheral edema. Denies: chest pain. GI: Denies: abdominal pain, nausea, vomiting. Genitourinary: Reports: no symptoms. Musculoskeletal: Reports: no symptoms. Skin: Reports: no symptoms. Neurological/Psychological: Reports: no symptoms. Hematologic/Endocrine: Reports: no symptoms. Immunologic/Allergic: Reports: no symptoms. (MARYLOU ACUNA) Physical Exam Physical Exam General Appearance: well developed/nourished, alert, awake Head: atraumatic, normal appearance Eyes: Bilateral: normal appearance, PERRL, EOMI. Ears, Nose, Throat: normal pharynx, normal ENT inspection, hearing grossly normal Neck: normal inspection, supple, full range of motion Respiratory: INCREASED RESPIRATORY EFFORT. dIFFUSELY DIMINISHED LUNG SOUNDS. Cardiovascular: tachycardia (REGULAR RHYTHM) Gastrointestinal: soft, non-tender, diffusely distended Extremities: 2+ BILATERAL LOWER EXTREMITY EDEMA Neurologic/Psych: awake, MILDLY LETHARGIC. dISORIENTED TO TIME Skin: intact, normal color, warm/dry Lymphatic: no anterior cervical lito Core Measures ACS in differential dx? Yes ASA ordered for poss ACS? No-ACS ruled out Severe Sepsis Present: Yes BC x2: Yes Lactic Acid x2: Yes IV ABX Broad Spectrum: Yes NS/LR Started: Yes Septic Shock Present: No (MARYLOU ACUNA) ED Sepsis Exam Date of Focused Sepsis Exam: 12/06/16 Time of Focused Sepsis Exam: 934 Sepsis Cardiac Exam: Tachycardia Sepsis Resp Exam: CTA Sepsis Cap Refill Exam: <2 Sec Sepsis Peripheral Pulse Exam: Weak Sepsis Peripheral Pulse Location: Radial Sepsis Skin Color Exam: Pale Skin Temp/Moisture Exam: Warm/Dry (MARYLOU ACUNA) Progress Differential Diagnosis: asthma, AMI, bronchitis, CHF, COPD, pulmonary embolism, pneumonia, unstable angina, SBO, sepsis Diagnostic Imaging: Viewed by Me: Radiology Read. Discussed w/RAD: Radiology Read. Radiology Impression: PATIENT: MATT DEAL PRESENT AGE: 89 PATIENT ACCOUNT NO: [id number] : [birth year] LOCATION: [facility] ([place] ORDERING PHYSICIAN: MARYLOU GUTIERREZ SERVICE DATE: 12/06/16 EXAM TYPE: RAD - XRY-PORTABLE CHEST XRAY EXAMINATION: XR PORTABLE CHEST CLINICAL INFORMATION: Hypoxia and dyspnea COMPARISON: November 21, [address] scan of December 02, 2015 TECHNIQUE: Portable view of the chest was obtained. FINDINGS: Since previous examination patient has developed region of parenchymal density in the right lower lung which may be related to atelectasis, pneumonitis, and/or pleural effusion. Retrocardiac region not well seen but there appears to be some basilar discoid disease consistent with atelectasis or scar. No pneumothorax is seen. The cardiopericardial silhouette is enlarged. There is no evidence of pulmonary edema. Status post right shoulder arthroplasty. Severe degenerative change of the left shoulder. IMPRESSION: Interval development of right lower lobe disease. Cardiomegaly without pulmonary edema. DICTATED BY: ANJELICA GARRETT MD DATE/TIME DICTATED:12/06/161007 COUNTY JUDGE:[place] DATE/TIME TRANSCRIBED:12/06/161007 CONFIDENTIAL, DO NOT COPY WITHOUT APPROPRIATE AUTHORIZATION. <Electronically signed in Other Vendor System> SIGNED BY: ANJELICA GARRETT MD 12/06/16 1015 Initial ED EKG: sinus tachycardia approximately 106 bpm with premature contractions. No acute ST/T-wave abnormalities, nonspecific changes compared to previous EKG Comments: PATIENT: MATT DEAL PRESENT AGE: 89 PATIENT ACCOUNT NO: [id number] : [birth year] LOCATION: [facility] ([place] ORDERING PHYSICIAN: MARYLOU GUTIERREZ SERVICE DATE: 12/06/16 EXAM TYPE: RAD - XRY-PORTABLE ABDOMEN EXAMINATION: XR PORTABLE ABDOMEN CLINICAL INFORMATION: Abdominal distention. COMPARISON: Chest radiographs from 11/21/2016 and 12/06/2016. TECHNIQUE: Single AP portable radiograph of the [id number]-[id number] abdomen was obtained with patient in semierect position (55 degrees). FINDINGS: There is a large cardiac silhouette. Discoid atelectasis is present within the left lung base. There is a small right pleural effusion. There is right basilar pulmonary opacity from atelectasis (and possible consolidation), unchanged compared to the recent chest radiograph. The visualized loops of bowel are normal in caliber and there is no pneumoperitoneum. IMPRESSION: 1. Limited single view centered on the mid to-upper abdomen shows no evidence of bowel obstruction or pneumoperitoneum. 2. Cardiomegaly, bibasilar atelectasis and small right pleural effusion. DICTATED BY: MILLA RAY MD DATE/TIME DICTATED:12/06/161055 COUNTY JUDGE:[place] DATE/TIME TRANSCRIBED:12/06/161055 CONFIDENTIAL, DO NOT COPY WITHOUT APPROPRIATE AUTHORIZATION. <Electronically signed in Other Vendor System> SIGNED BY: MILLA RAY MD 12/06/16 1104 (MARYLOU ACUNA) Plan of Care: Orders Procedure Date/time Status ARTERIAL BLOOD GAS (GEN) 12/07 0600 Complete ICU LAB BUNDLE 12/07 0500 Active CBC WITHOUT DIFFERENTIAL 12/07 0500 Active Nothing by Mouth 12/06 D Active LACTIC ACID 12/06 1531 Active Code Status 12/06 1245 Active LACTIC ACID 12/06 1231 Active BIPAP 12/06 1139 Complete TRC EVALUATION (GEN) 12/06 1125 Active CULTURE,URINE 12/06 1125 Active LOWER RESPIRATORY CULTURE 12/06 1125 Active Admit to inpatient 12/06 1109 Active Pathway - chart 12/06 1108 Active House Staff 12/06 1108 Active Patient Data 12/06 1108 Active Patient Data 12/06 1102 Active THYROID STIMULATING HORMONE 12/06 1053 Complete FREE T4 12/06 1053 Complete BIPAP 12/06 0959 Complete BLOOD CULTURE 12/06 0931 Active LACTIC ACID 12/06 0931 Complete ARTERIAL BLOOD GAS (GEN) 12/06 0930 Complete Telemetry/Corset Fitter 12/06 0930 Active TROPONIN LEVEL 12/06 0930 Complete COMPREHENSIVE METABOLIC PANEL 12/06 0930 Complete CBC WITHOUT DIFFERENTIAL 12/06 0930 Complete B-TYPE NATRIURETIC PEP (BNP) 12/06 09 Complete EKG 12/06 0911 Active Lab Add-on Test 12/06 UNK Active VTE Mechanical Prophylaxis 12/06 UNK Active Vital Signs 12/06 UNK Active Restraint- Medical 12/06 UNK Active NGT 12/06 UNK Active Intake & Output 12/06 UNK Active Laboratory Tests 12/06/16 1340: pH Pending, pCO2 Pending, pO2 Pending, HCO3 Pending, ABG O2 Sat (Measured) Pending, P-50 (Temp Corrected) Pending, Carboxyhemoglobin Pending, O2 Concentration % Pending, Temperature Pending, Respiration Rate Pending, O2 Delivery Method Pending, Vent Mode Pending, Expiratory Pressure Pending, Inspiratory Pressure Pending, Phlebotomy Draw Site Pending 12/06/16 1053: Anion Gap 6, Estimated GFR > 60, BUN/Creatinine Ratio 48.8 H, Glucose 134 H, Calcium 8.9, Total Bilirubin 0.7, AST 42 H, ALT 107 H, Alkaline Phosphatase 68 , Troponin I 0.09, [id number]-Mbevljrxkdp Pept 44819 H, Total Protein 6.4, Albumin 3.9, Globulin 2.5, Albumin/Globulin Ratio 1.6, TSH 1.750, Free T4 0.97 12/06/16 0940: pH 7.28 *L, pCO2 89 *H, pO2 41 *L, HCO3 41 H, ABG O2 Sat (Measured) 73.0 L, Carboxyhemoglobin 2.3, O2 Concentration % 4L, Temperature 98.6, O2 Delivery Method NC, Phlebotomy Draw Site RIGHT BRACHIAL 12/06/16 0940: pH Pending, pCO2 Pending, pO2 Pending, HCO3 Pending, ABG O2 Sat (Measured) Pending, P-50 (Temp Corrected) Pending, Carboxyhemoglobin Pending, O2 Concentration % Pending, Temperature Pending, O2 Delivery Method Pending, Phlebotomy Draw Site Pending 12/06/16 0930: Lactic Acid 1.4, CBC w Diff MAN DIFF ORDERED, RBC 3.93 L, MCV 95.6, MCH 31.4 H , RDW 14.6 H, MPV 6.5 L, Gran % 91.2 H, Lymphocytes % 2.4 L, Monocytes % 5.8 , Eosinophils % 0.1, Basophils % 0.5, Absolute Granulocytes 14.9 H, Absolute Lymphocytes 0.4 L, Absolute Monocytes 0.9 H, Absolute Eosinophils 0, Absolute Basophils 0.1, Platelet Estimate VERIFIED BY SMEAR, Basophilic Stippling 1+, Anisocytosis 1+, PUBS MCHC 32.8 L Microbiology 12/06 1125 URINE ROUT: Urine Culture - ORD 12/06 1125 LOWER RESP: Respiratory Culture - ORD 12/06 1125 LOWER RESP: Gram Stain - ORD 12/06 1024 BLOOD: Blood Culture - RECD 12/06 0930 BLOOD: Blood Culture - RECD Previous records reviewed. Patient is DNI, not DNR. Respiratory paged for bipap and neb treatment. 0935: Discussed with Dr. Avalos 1030: Patient becoming hypotensive. IV fluids ordered. Patient's at bedside, discussed patient's critical clinical condition with him. Patient is DNI per , no other known advanced directives. Discussed possibility of central line and pressors. unsure at this time. 1100: Patient's blood pressure responding to IV fluids, central line deferred at this time. Dr. Avalos discussed patient with Dr. Ellsworth for admission to ICU. (MARYLOU ACUNA) Comments: 12/06/2016 9:59:30 AM Matt's oxygen saturations are upper 90s on BiPAP but her chest excursion is disappointing. I have repositioned her with the assistance of her nurse currently having a portable chest x-ray. Abdomen is softly distended and tympanitic. possible aerophagia versus obstruction. 12/06/2016 11:03:23 AM since case discussed with the hospitalist and Dr. LUI. Patient is responding to fluid boluses with normalization of her blood pressure. She remains however in critical condition. Prognosis is guarded. (GUCCI LEWIS,LAWRENCE Main) Departure Departure Disposition: STILL A PATIENT Condition: Guarded Clinical Impression Primary Impression: Respiratory failure with hypercapnia Qualifiers: Chronicity: acute Qualified Code: J96.02 - Acute respiratory failure with hypercapnia Secondary Impressions: Healthcare-associated pneumonia Referrals: MATT LEWIS,DIVINA Simpson (PCP/Family) Departure Forms: Customer Survey General Discharge Information Admission Note Spoke With: THONG ELLSWORTH MD Documentation of Exam: Documentation of any treatments & extenuating circumstances including Concerns Regarding Discharge (functional status, medication knowledge or non-compliance, living conditions, etc.) that warrant an admission rather than observation: ICU monitoring, BiPAP, pulmonary consultation, IV antibiotics (MARYLOU ACUNA) PA/CIVIL RIGHTS INVESTIGATOR Co-Sign Statement Statement: ED Attending supervision documentation- [X] I saw and evaluated the patient. I have also reviewed all the pertinent lab results and diagnostic results. I agree with the findings and the plan of care as documented in the PA's/CIVIL RIGHTS INVESTIGATOR's documentation. [] I have reviewed the ED Record and agree with the PA's/CIVIL RIGHTS INVESTIGATOR's documentation. [] Additions or exceptions (if any) to the PAs/CIVIL RIGHTS INVESTIGATOR's note and plan are summarized below: [] (GUCCI LEIWS,LAWRENCE Main) Critical Care Note Critical Care Note Critical Care Time: 30-74 min (MARYLOU ACUNA)
--- NOTE | 2016-12-06 09:50 | NUR ---
89 YO FEMALE BIBMichelle FROM HOME. PER EMS, CALLED 911 BECAUSE PT HAS BEEN LETHARGIC SINCE YESTERDAY AND OXYGEN SATS WERE IN THE 80s TODAY. PT NORMALLY WEARS 4L OXYGEN AT HOME, HX OF COPD AND EMPHYSEMA. PT ARRIVES ALERT BUT DROWSY, HARD OF HEARING. BIALTERAL HEARING AIDS PLACED. PT DENIES PAIN ANYWHERE. OXYGEN SATS NOTED TO BE 70s ON 4L. RESP AND PA AT BEDSIDE. IV EST. PT MEDICATED WITH 125MG SOLUMEDROL. ABG COMPLETE AND RESP PLACING PT ON BIPAP AT THIS TIME. BILATERAL LOWER EXTREMITIES NOTED WITH PITTING EDEAM AND TO BE RED. PT IN A-FIB ON MONITOR, HX OF SAME. EKG COMPLTE ON ARRIVAL.
[2016-12-06 09:54] LABS: ABSOLUTE BASOPHIL COUNT 0.1 /CUMM (0.0-0.2); ABSOLUTE EOSINOPHIL COUNT 0 /CUMM (0.0-0.7); ABSOLUTE GRANULOCYTE CT 14.9 /CUMM (1.4-6.5); ABSOLUTE LYMPH COUNT 0.4 /CUMM (1.2-3.4); ABSOLUTE MONOCYTE COUNT 0.9 /CUMM (0.10-0.60); BASOPHIL % 0.5 % (0.0-2.0); EOSINOPHIL % 0.1 % (0-5); GRANULOCYTE % 91.2 % (42.2-75.2); HEMATOCRIT 37.6 % (37-47); MEAN CORPUSCULAR HGB 31.4 PG (27.0-31.0); MEAN CORPUSCULAR HGB CONC 32.8 G/DL (33.0-37.0); MEAN CORPUSCULAR VOLUME 95.6 FL (81.0-99.0); MEAN PLATELET VOLUME 6.5 FL (7.4-10.4); PLATELET COUNT 331 /CUMM (130-400); RBC DISTRIBUTION WIDTH 14.6 % (11.5-14.5); RED BLOOD CELL CT 3.93 /CUMM (4.20-5.40); WHITE BLOOD CELL COUNT 16.4 /CUMM (4.8-10.8)
--- NOTE | 2016-12-06 10:00 | NUR ---
PT ON BIPAP AT THIS TIME. SATS 90-93%. DR DUCKWORTH AT BEDSIDE.
--- NOTE | 2016-12-06 10:12 | NUR ---
XRAY AT BEDSIDE.
--- NOTE | 2016-12-06 10:15 | RADIOLOGY REPORT ---
EXAMINATION: XR PORTABLE CHEST CLINICAL INFORMATION: Hypoxia and dyspnea COMPARISON: November 21, [address] scan of December 02, 2015 TECHNIQUE: Portable view of the chest was obtained. FINDINGS: Since previous examination patient has developed region of parenchymal density in the right lower lung which may be related to atelectasis, pneumonitis, and/or pleural effusion. Retrocardiac region not well seen but there appears to be some basilar discoid disease consistent with atelectasis or scar. No pneumothorax is seen. The cardiopericardial silhouette is enlarged. There is no evidence of pulmonary edema. Status post right shoulder arthroplasty. Severe degenerative change of the left shoulder. IMPRESSION: Interval development of right lower lobe disease. Cardiomegaly without pulmonary edema.
--- NOTE | 2016-12-06 10:34 | NUR ---
BP 80/60 MAUALLY AT THIS TIME. PA AWARE. 2 LITER NS INFUSING PER ORDER AT THISTIME
--- NOTE | 2016-12-06 10:45 | NUR ---
PT MEDICATED WITH IV FORTAZ AND ZITHROMAX PER CINDI AT THIS TIME. PT NOT RESPONDING TO VERBAL STIMULI AT THIS TIME. PA AWARE AND AT BEDSIDE. PT RESPONDING TO PAINFUL STIMULI. REMIANS AT BEDSIDE.
--- NOTE | 2016-12-06 10:57 | NUR ---
BP 115/86 AT THIS TIME. FLUIDS AND ANTIBITOTICS REMIANS INFUSING PER ORDER. PT REMAINS ONLY ALERT TO PAINFUL STIMULI AT THIS TIME.
--- NOTE | 2016-12-06 11:04 | RADIOLOGY REPORT ---
EXAMINATION: XR PORTABLE ABDOMEN CLINICAL INFORMATION: Abdominal distention. COMPARISON: Chest radiographs from 11/21/2016 and 12/06/2016. TECHNIQUE: Single AP portable radiograph of the [id number]-[id number] abdomen was obtained with patient in semierect position (55 degrees). FINDINGS: There is a large cardiac silhouette. Discoid atelectasis is present within the left lung base. There is a small right pleural effusion. There is right basilar pulmonary opacity from atelectasis (and possible consolidation), unchanged compared to the recent chest radiograph. The visualized loops of bowel are normal in caliber and there is no pneumoperitoneum. IMPRESSION: 1. Limited single view centered on the mid to-upper abdomen shows no evidence of bowel obstruction or pneumoperitoneum. 2. Cardiomegaly, bibasilar atelectasis and small right pleural effusion.
--- NOTE | 2016-12-06 11:29 | History & Physical ---
See Addendum General Information and HPI MD Statement: I have seen and personally examined SAYMATT and documented this H&P. The patient is a 89 year old F who presented with a patient stated chief complaint of [acute hyper capenic and hypoxic respiratory failure]. Source of Information: Exam Limitations: unable to give history, somnolent History of Present Illness: This is a 89-year-old female with past medical history of COPD on 4 L of home oxygen, hypertension, hypothyroidism on thyroxine, macular degeneration, recently admitted to [facility] at 11/21/2016 ( for worsening SOB) discharge 11/24/2016 after being treated for acute hypoxic respiratory failure secondary to COPD exacerbation,CHF came in today 12/06/2016 with chief complaint of worsening shortness of breath. It is noted that today the patient's dyspnea is significantly worse, no alleviating factors. Spur the after the recent discharge from [facility], she has not been herself, she has been extremely tired and lethargic, has been unable to do her activities of daily living. Level one day prior to admission, she was extremely short of breath especially on exertion, around 3:30 AM on the night of 12/06/2016 she sat up to go to the bathroom however she was very unsteady, very short of breath, was not able to get up from the bed and make it and went back to sleep. At around 7 AM her measured her her oxygen saturations it were noted to be 62% that's when they called 911 and she was brought in to [facility]. -She was given a DuoNeb treatment by EMS during transport. He also received BiPAP while in the ER. -At around 10:30 AM ( 12/06/2016) she started becoming hypotensive, she was supplemented with 2 L of IV bolus of fluids. She is on 10 mg of prednisone prescribed by her primary care Anuradha Gutierrez MD for COPD, she does not use any BiPAP, denies history of heart failure. Her forensic pathologist is Dr. phelps(beaver) and lbd teacher is ( Manquin)had a recent echocardiogram in the last week of October at her lbd teacher's office which as per patient did not show any heart failure. She is an ex smoker quit 40 years ago, occasional drinker 2-4 glasses a point per week, lives at home with her , uses a rolling walker at baseline for ambulation. Allergies/Medications Allergies: Coded Allergies: NO KNOWN ALLERGIES (05/29/16) Home Med list Albuterol Sulfate (Proventil Hfa) 90 MCG HFA.AER.AD 2 PUF INH 4 TIMES/DAY COPD (Reported) Azithromycin 250 MG TABLET 250 MG PO DAILY LUNG INFECTION Fluticasone-Salmeterol (Advair 100-50 Diskus) 100 MCG-50 MCG/DOSE BLST.W.DEV 1 PUF INH BID BREATING (Reported) Fosinopril Sodium 40 MG TABLET 1 TAB PO DAILY BLOOD PRESSURE Furosemide 20 MG TABLET 1 TAB PO DAILY CHF Hold HCTZ (one of your BP medication) while taking this med. Call lbd teacher if BP not under control. Guaifenesin (Guaifenesin ER) 600 MG TAB.ER.12H 600 MG PO Q12 MUCOUS THINNER Levothyroxine Sodium (Levothroid) 0.025 MG TAB 0.025 MG PO DAILY THYROIDS ( Reported) Prednisone 10 MG TABLET 1 TAB PO SI COPD TAKE 4 TABS FOR THREE DAYS (11/25/15-11/27/15) TAKE 3 TABS FOR THREE DAYS (11/28/15-11/30/15) TAKE 2 TABS FOR THREE DAYS (12/01/15-12/03/15) TAKE 1 TAB FOR THREE DAYS (12/04/15--12/06/15) Tiotropium Scarbro (Spiriva) 18 MCG CAP.W.DEV 1 CAP INH DAILY BREATHING ( Reported) Valsartan/Hydrochlorothiazide (Valsartan-Hctz 320-25 MG Tab) 1 EACH TABLET 1 TAB PO DAILY HEART (Reported) VERAPAMIL HCL (Verapamil ER) 240 MG TABLET.ER 360 MG PO DAILY BLOOD PRESSURE (Reported) Compliance With Home Meds: GOOD Past History Travel History Traveled to [place] past 21 day No Medical History Blood Transfusion Hx: No Neurological: NONE EENT: macular degeneration Cardiovascular: hypertension, AORTIC VALVE REGURGITATION Respiratory: COPD, emphysema Gastrointestinal: NONE Hepatic: NONE Renal: NONE Musculoskeletal: osteoarthritis Psychiatric: NONE Endocrine: hypothyroidism Blood Disorders: NONE Cancer(s): NONE PROPERTY ACCOUNTANT/Reproductive: miscarriage History of MRSA: No History of VRE: No History of CDIFF: No Pneumonia Vaccine: 01/07/15 Influenza Vaccine: 10/07/16 Surgical History Surgical History: non-contributory Past Family/Social History Family History Relations & Conditions if any Cancer of larynx FATHER FH: breast cancer MOTHER FH: hypertension Relation not specified Psychosocial History Where do you live? Home Who Do You Live With? spouse Services at Home: None Primary Language: Albanian Smoking Status: Former Smoker ETOH Use: occasional use Power of Mold Filling Operator/HCP? 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 Ambulation: walker IADLs Needs Assist: shopping, housework, finances, food prep, telephone, transportation. 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 Denies: chills, diaphoresis, fever. EENTM: Denies: blurred vision, double vision, visual changes, eye pain. Cardiovascular: Reports: edema, orthopena, peripheral edema. Denies: chest pain, palpitations, syncope. Respiratory: Reports: cough, orthopnea, short of breath, sputum production, wheezing. Denies : hemoptysis, stridor. GI: Reports: bloating, nausea, bloody stool, changes in stool, vomiting, steatorrhea. Denies: abdominal pain, constipation, diarrhea, distention, bowel incontinence, melena. Genitourinary: Reports: no symptoms. Musculoskeletal: Reports: back pain. Denies: gout. Skin: Reports: change in skin color, dryness. Neurological/Psychological: Reports: no symptoms. Immunologic/Allergic: Reports: no symptoms. All Other Systems: Reviewed and Negative Exam & Diagnostic Data Last 24 Hrs of Vital Signs/I&O Vital Signs Date Time Temp Pulse Resp B/P Pulse O2 O2 Flow FiO2 Ox Delivery Rate 12/06 1255 98.3 99 24 128/79 94 BIPAP 75% 12/06 1137 100 95 12/06 1128 98.3 103 24 124/80 83 BIPAP 40% 12/06 1056 98.6 91 24 115/89 86 BIPAP 40% 12/06 1026 89 80/60 12/06 0957 96 12/06 0956 96 BIPAP 40% 12/06 0920 74 Nasal 4.0L Cannula 12/06 917 98.6 109 22 110/59 79 Nasal 4.0L Cannula Intake & Output 12/06 1600 12/06 0800 12/06 0000 Intake Total Output Total Balance Patient 68.039 kg Weight Physical Exam General Appearance somnolent , not awake Skin No Rashes, No Breakdown, No Significant Lesion HEENT Atraumatic, PERRLA, EOMI Neck Supple, No JVD, No thryomegaly Lymphatic no lad Cardiovascular Regular Rate, Normal S1, Normal S2, No Murmurs Lungs Clear to Auscultation, Normal Air Movement Abdomen Soft, No Tenderness, distended, mild umbilical hernia. Neurological Strength at 5/5 X4 Ext, Normal Tone, Sensation Intact, Cranial Nerves 3-12 NL Extremities b/l lower extremity edema, b/l soles dryess and discoloration. Vascular Normal Pulses Last 24 Hrs of Labs/Pedro: Laboratory Tests 12/06/16 1340: pH 7.19 *L, pCO2 95 *H, pO2 90, HCO3 35 H, ABG O2 Sat (Measured) 96.0, P-50 ( Temp Corrected) YES, Carboxyhemoglobin 1.8, O2 Concentration % 75, Temperature 98.3, Respiration Rate 24, O2 Delivery Method BIPAP, Vent Mode ST, Expiratory Pressure 6, Inspiratory Pressure 20, Phlebotomy Draw Site RIGHT RADIAL 12/06/16 1053: Anion Gap 6, Estimated GFR > 60, BUN/Creatinine Ratio 48.8 H, Glucose 134 H, Calcium 8.9, Total Bilirubin 0.7, AST 42 H, ALT 107 H, Alkaline Phosphatase 68 , Troponin I 0.09, [id number] Pept 92416 H, Total Protein 6.4, Albumin 3.9, Globulin 2.5, Albumin/Globulin Ratio 1.6, TSH 1.750, Free T4 0.97 12/06/16 0940: pH 7.28 *L, pCO2 89 *H, pO2 41 *L, HCO3 41 H, ABG O2 Sat (Measured) 73.0 L, Carboxyhemoglobin 2.3, O2 Concentration % 4L, Temperature 98.6, O2 Delivery Method NC, Phlebotomy Draw Site RIGHT BRACHIAL 12/06/16 0940: pH Pending, pCO2 Pending, pO2 Pending, HCO3 Pending, ABG O2 Sat (Measured) Pending, P-50 (Temp Corrected) Pending, Carboxyhemoglobin Pending, O2 Concentration % Pending, Temperature Pending, O2 Delivery Method Pending, Phlebotomy Draw Site Pending 12/06/16929: Lactic Acid 1.4, CBC w Diff MAN DIFF ORDERED, RBC 3.93 L, MCV 95.6, MCH 31.4 H , RDW 14.6 H, MPV 6.5 L, Gran % 91.2 H, Lymphocytes % 2.4 L, Monocytes % 5.8 , Eosinophils % 0.1, Basophils % 0.5, Absolute Granulocytes 14.9 H, Absolute Lymphocytes 0.4 L, Absolute Monocytes 0.9 H, Absolute Eosinophils 0, Absolute Basophils 0.1, Platelet Estimate VERIFIED BY SMEAR, Basophilic Stippling 1+, Anisocytosis 1+, PUBS MCHC 32.8 L Microbiology 12/06 143 URINE ROUT: Legionella Antigen - ORD 12/06 143 URINE ROUT: Streptococcus pneumoniae Antigen (M - ORD 12/06 112 URINE ROUT: Urine Culture - ORD 12/06 1125 LOWER RESP: Respiratory Culture - ORD 12/06 1125 LOWER RESP: Gram Stain - ORD 12/06 1024 BLOOD: Blood Culture - RECD 12/06 929 BLOOD: Blood Culture - RECD Diagnostic Data CXR Results SERVICE DATE: 12/06/16 EXAM TYPE: RAD - XRY-PORTABLE CHEST XRAY EXAMINATION: XR PORTABLE CHEST CLINICAL INFORMATION: Hypoxia and dyspnea COMPARISON: November 21, [address] scan of December 02, 2015 TECHNIQUE: Portable view of the chest was obtained. FINDINGS: Since previous examination patient has developed region of parenchymal density in the right lower lung which may be related to atelectasis, pneumonitis, and/or pleural effusion. Retrocardiac region not well seen but there appears to be some basilar discoid disease consistent with atelectasis or scar. No pneumothorax is seen. The cardiopericardial silhouette is enlarged. There is no evidence of pulmonary edema. Status post right shoulder arthroplasty. Severe degenerative change of the left shoulder. IMPRESSION: Interval development of right lower lobe disease. Cardiomegaly without pulmonary edema. SERVICE DATE: 12/06/16-1021 EXAM TYPE: RAD - XRY-PORTABLE ABDOMEN IMPRESSION: 1. Limited single view centered on the mid to-upper abdomen shows no evidence of bowel obstruction or pneumoperitoneum. 2. Cardiomegaly, bibasilar atelectasis and small right pleural effusion. SERVICE DATE: 12/06/16 EXAM TYPE: RAD - XRY-PORTABLE CHEST XRAY IMPRESSION: NG tube courses below the diaphragm, with tip out of field of view over the left mid to upper abdomen. This likely terminates within the stomach; please correlate with tube function. Persistent bilateral lower lobe opacification, likely reflecting pleural effusions and adjacent parenchymal atelectasis/consolidation. Assessment/Plan Assessment: This 89-year-old female with past medical history of COPD on 4 L of home oxygen, hypertension, hypothyroidism on oxygen, macular degeneration, recently admitted to [facility] at 11/21/2016 for worsening shortness of breath discharged on 11/24/2016 after being treated for acute hypoxic respiratory failure secondary to COPD exacerbation and CHF came in today with chief complaint of worsening shortness of breath. She was placed on the BiPAP while in the ER. Vitals : tMax 98.6 initial blood pressure 110/59, however dropped to 80/60, which came back to 115/89 after 2-3 L of IV bolus. She is currently on BiPAP, her saturations dropped to 74%, and then she came back to 96% once on BiPAP with 40% FiO2 Relevant labs : white count of 16.4,no bands, H/H of 12.3/37.6, platelet of 331, MCV of 95.6. ABG pH of 7.28 PCO2 of 89/PO2 41/bicarbonate of 41. Blood Cultures 2 were sent from the ER Lytes : Na : 131 ( baseline is 131) AG of 6, bun/creatinine : 39/0.8, glu - 134 , serum osmolality :275, LA intial and second 1.0 and 1.4, will check third one. AST , ALt : 42,107 ProBNP : 79707 TSH/T4 pedning Chest xray shows interval development of right lower lobe disease ?? atelectasis versus pneumonitis versus pleural effusion on no overt pulmonary edema, cardiomegaly present. Xray abdomen : was done secondary to abdominal distention had a limited single view, no evidence of bowel obstruction or pneumoperitoneum, cardiomegaly, bibasilar atelectasis with small right pleural effusion. She received one time of IV ceftazidime and vancomycin along with azithromycin while in the emergency department. She also received TRC nebulizations and 125 mg of IV Solu-Medrol. Problem List along with assessment and plan Problem #1 acute hypoxic and hypercapnic respiratory failure * This could be most likely secondary to COPD exacerbation versus some element of congestive heart failure. * Continue BiPAP currently to maintain oxygen saturation above 92% all the time. * FiO2 was increased from 45% to 75%. * Continue TRC nebulization. * Patient received one-time of IV Solu-Medrol 125 mg daily * Continue 40 mg IV Solu-Medrol every 8 hourly. * Chest x-ray showed some interval development of right lower lobe disease. * We will continue broad-spectrum antibiotic for now with IV ceftriaxone and azithromycin. * Continue to follow blood cultures which were sent from the ER. * Continue to follow sputum cultures. * Continue to follow urine culture. * Continue to follow rapid flu. * Continue to follow urine Legionella and strep pneumococcal antigen. #2 Hypotension. * She was hypotensive in the ER, received 2-3 L of IV normal saline bolus. * The family did not want to proceed with any central line, we continued to challenge the patient with IV fluids and her blood pressure came up with subsequent IV hydration. * This could be secondary to possible pneumonia, she does have a white count of 16.4 however she is afebrile, she has also been on chronic steroid taper after recent discharge, therefore not sure how suggestive the white count is of infection, patient did not have any lactic acidosis, first lactic acid 1, secondary to acid increasing at 1.4, will check one more lactic acid just to make sure that it does not show an increasing trend. * Continue to monitor CBCs daily. * Blood pressure now stable. * Continue to hold all antihypertensive medications for now. #3 history of hypothyroidism. * As per the patient , she does not take her thyroid medications as her thyroid hormone levels are within normal limit. * However it was noted that at last admission from November 21 to November 24, she continue taking her levothyroxine. * We'll check the thyroid function tests. * Will continue levothyroxine for now. #4 history of hypertension. * Continue to hold all antihypertensive for now. #4 history of COPD. * Continue TRC nebulization. * Continue IV solumedrol * Continue BiPAP. #5 Code Status Since is a POA, it was discussed at length about the aggressiveness of the management. Patient should not be intubated, or resuscitated, she is DNR/DNI and the family does not want any aggressive management but want to continue current treatment and admit to ICU. She has history of macular degeneration and cannot hear very well. DVT prophylaxis with Lovenox. DNR/DNI As Ranked By This Provider Problem List: 1. Acute on chronic respiratory failure with hypoxia and hypercapnia 2. COPD exacerbation 3. Hypothyroidism Core Measures/Miscellaneous Acute Coronary Syndrome ACS Diagnosis: No Cerebrovascular Accident CVA/TIA Diagnosis: No Congestive Heart Failure CHF Diagnosis: No Venous Thromboembolism VTE Risk Factors: Age > 40 VTE Prophylaxis Ordered Inpt: Pharm- Lovenox No Mech VTE prophylaxis d/t: No contraindications No VTE Pharm Prophylaxis d/t: No contraindications VTE Diagnosis: No VTE Type: NONE VTE Confirmed by (Test): NONE Severe Sepsis Severe Sepsis Present: No Septic Shock Septic Shock Present: No Miscellaneous Documentation Attending Case Discussed With: CHERIE ALCANTARA MD Primary Care Physician: ANURADHA GUTIERREZ MD Patient sees these Specialists .. Level of Patient Care: Critical Care (CRI)
--- NOTE | 2016-12-06 11:30 | NUR ---
PTS OXYGEN SATS REMAIN LOW 80s ON BIPAP. RESP PAGED TO COME AND RE-EVAL PT. PA AT BEDSIDE AT THIS TIME. REMAINS AT BEDSIDE
--- NOTE | 2016-12-06 11:40 | NUR ---
HOUSE STAFF AT BEDSIDE FOR EVAL
--- NOTE | 2016-12-06 12:00 | NUR ---
DR ALCANTARA AT BEDSIDE. VANCO INFUSING PER ORDER AT THIS TIME. PER DR ALCANTARA, NG TUBE TO BE PLACED.
[2016-12-06] MEDS ORDERED: PROVENTIL HFA6.7 GM INH (12:08)
--- NOTE | 2016-12-06 12:10 | NUR ---
PT BECOMMING AGITATED. PULLING BIPAP MASK OFF AT THIS TIME. HOUSE STAFF REMAINS AT BEDSIDE, BILATERAL SOFT WRIST RESTAINTS APPLIED PER HOUSE STAFF AT THIS TIME.
--- NOTE | 2016-12-06 12:20 | NUR ---
PT REPOSITONED AND PERICARE PERFORMED. PT MORE AWAKE AT THIS TIME, ASKING FOR COFFEE. PT ASKED TO BE REPOISITED TO SIDE, PT MOVED ONTO R SIDE PER REQUEST.
--- NOTE | 2016-12-06 12:54 | NUR ---
JAVI PAEZ CALLED REGARDING NGT AND BIPAP, MADE AWARE THE BIPAP MACHINE WILL NOT HAVE A PROPER SEAL IF THE NGT IS PLACED. PER GAYATHRI AND DR ALCANTARA, NGT IS STILL TO BE PLACED.
--- NOTE | 2016-12-06 13:09 | Cons- CRCU ---
General Information and HPI Consulting Request Date of Consult: 12/06/16 Requested By: ed History of Present Illness: This is a 89-year-old female with past medical history of COPD on 4 L of home oxygen, hypertension, hypothyroidism on thyroxine, macular degeneration, recently admitted to [facility] at 11/21/2016 ( for worsening SOB) discharge 11/24/2016 after being treated for acute hypoxic respiratory failure secondary to COPD exacerbation,CHFcame in today 12/06/2016 with chief complaint of worsening shortness of breath. It is noted that today the patient's dyspnea is significantly worse, no alleviating factors. She was given a DuoNeb treatment by EMS during transport. He also received BiPAP while in the ER. At around 10:30 AM she started becoming hypotensive, she was supplemented with 2 L of IV bolus of fluids. As per the the patient is DNI and DNR at current point they are still unsure, as to if the patient needs central line or pressors. She is on 10 mg of prednisone prescribed by her primary care Anuradha Carlson MD for COPD, she does not use any BiPAP, denies history of heart failure. Her k [address] phelps([place]) and flight test data acquisition technician is ( [place]) him a head and echocardiogram in the last week of October at her flight test data acquisition technician's office which as per patient did not show any heart failure. She is an ex smoker quit 40 years ago, occasional drinker 2-4 glasses a point per week, lives at home with her , uses a rolling walker at baseline for ambulation. vitas : tMax 98.6 initial blood pressure 110/59, however dropped to 80/60, which came back to 115/89 after 2-3 L of IV bolus. She is currently on BiPAP, her saturations dropped to 74%, and then she came back to 96% once on BiPAP with 40% FiO2 Relevant labs white count of 16.4,no bands, H/H of 12.3/37.6, platelet of 331, MCV of 95.6. ABG pH of 7.2 A/P CO2 of 89/PO2 41/bicarbonate of 41. Cultures 2 were sent from the ER Lytes pending chest xray shows interval development of right lower lobe disease ?? atelectasis versus pneumonitis versus pleural effusion on no overt pulmonary edema, cardiomegaly present. xray abdomen was done secondary to abdominal distention had a limited single view, no evidence of bowel obstruction or pneumoperitoneum, cardiomegaly, bibasilar atelectasis with small right pleural effusion. She received one time of IV ceftazidime and vancomycin along with azithromycin while in the emergency department. She also received TRC nebulizations and 125 mg of IV Solu-Medrol. Allergies/Medications Allergies: Coded Allergies: NO KNOWN ALLERGIES (05/29/16) Home Med List: Albuterol Sulfate (Proventil Hfa) 90 MCG HFA.AER.AD 2 PUF INH 4 TIMES/DAY copd (Reported) Azithromycin 250 MG TABLET 250 MG PO DAILY LUNG INFECTION Fluticasone-Salmeterol (Advair 100-50 Diskus) 100 MCG-50 MCG/DOSE BLST.W.DEV 1 PUF INH BID BREATING (Reported) Fosinopril Sodium 40 MG TABLET 1 TAB PO DAILY BLOOD PRESSURE Furosemide 20 MG TABLET 1 TAB PO DAILY CHF Hold HCTZ (one of your BP medication) while taking this med. Call flight test data acquisition technician if BP not under control. Guaifenesin (Guaifenesin ER) 600 MG TAB.ER.12H 600 MG PO Q12 MUCOUS THINNER Levothyroxine Sodium (Levothroid) 0.025 MG TAB 0.025 MG PO DAILY THYROIDS ( Reported) Prednisone 10 MG TABLET 1 TAB PO SI COPD TAKE 4 TABS FOR THREE DAYS (11/25/15-11/27/15) TAKE 3 TABS FOR THREE DAYS (11/28/15-11/30/15) TAKE 2 TABS FOR THREE DAYS (12/01/15-12/03/15) TAKE 1 TAB FOR THREE DAYS (12/04/15--12/06/15) Tiotropium [place] (Spiriva) 18 MCG CAP.W.DEV 1 CAP INH DAILY BREATHING ( Reported) Valsartan/Hydrochlorothiazide (Valsartan-Hctz 320-25 MG Tab) 1 EACH TABLET 1 TAB PO DAILY HEART (Reported) VERAPAMIL HCL (Verapamil ER) 240 MG TABLET.ER 360 MG PO DAILY BLOOD PRESSURE (Reported) Review of Systems Review of Systems Constitutional: Reports: see HPI. 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 Home Who Do You Live With? spouse Services at Home: None Primary Language: Mohawk Smoking Status: Former Smoker ETOH Use: occasional use Power of Seam Stayer/HCP? 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 Ambulation: walker IADLs Needs Assist: shopping, housework, finances, food prep, telephone, transportation. 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 Exam & Diagnostic Data Last 24 Hrs of Vital Signs/I&O Vital Signs Date Time Temp Pulse Resp B/P Pulse O2 O2 Flow FiO2 Ox Delivery Rate 12/06 1255 98.3 99 24 128/79 94 BIPAP 75% 12/06 1137 100 95 12/06 1128 98.3 103 24 124/80 83 BIPAP 40% 12/06 1056 98.6 91 24 115/89 86 BIPAP 40% 12/06 1026 89 80/60 12/06 0957 96 12/06 0956 96 BIPAP 40% 12/06 0920 74 Nasal 4.0L Cannula 12/06 0918 98.6 109 22 110/59 79 Nasal 4.0L Cannula Intake & Output 12/06 1600 12/06 0800 12/06 0000 Intake Total Output Total Balance Patient 150 lb Weight Last 48 Hrs of Labs/Pedro: Laboratory Tests 12/06/16 1053: Anion Gap 6, Estimated GFR > 60, BUN/Creatinine Ratio 48.8 H, Glucose 134 H, Calcium 8.9, Total Bilirubin 0.7, AST 42 H, ALT 107 H, Alkaline Phosphatase 68 , Troponin I 0.09, Fwl-S-Ngdbyfbgbyc Pept 36174 H, Total Protein 6.4, Albumin 3.9, Globulin 2.5, Albumin/Globulin Ratio 1.6, TSH Pending, Free T4 Pending 12/06/16 0940: pH 7.28 *L, pCO2 89 *H, pO2 41 *L, HCO3 41 H, ABG O2 Sat (Measured) 73.0 L, Carboxyhemoglobin 2.3, O2 Concentration % 4L, Temperature 98.6, O2 Delivery Method NC, Phlebotomy Draw Site RIGHT BRACHIAL 12/06/16 0940: pH Pending, pCO2 Pending, pO2 Pending, HCO3 Pending, ABG O2 Sat (Measured) Pending, P-50 (Temp Corrected) Pending, Carboxyhemoglobin Pending, O2 Concentration % Pending, Temperature Pending, O2 Delivery Method Pending, Phlebotomy Draw Site Pending 12/06/16 0930: Lactic Acid 1.4, CBC w Diff MAN DIFF ORDERED, RBC 3.93 L, MCV 95.6, MCH 31.4 H , RDW 14.6 H, MPV 6.5 L, Gran % 91.2 H, Lymphocytes % 2.4 L, Monocytes % 5.8 , Eosinophils % 0.1, Basophils % 0.5, Absolute Granulocytes 14.9 H, Absolute Lymphocytes 0.4 L, Absolute Monocytes 0.9 H, Absolute Eosinophils 0, Absolute Basophils 0.1, Platelet Estimate VERIFIED BY SMEAR, Basophilic Stippling 1+, Anisocytosis 1+, PUBS MCHC 32.8 L Assessment/Plan Impression/Plan: IMPRESSION Pt with end stage copd with Acute hypoxic and hypercarbic resp failure due to progressive lung failure with prob super imposed pna SIg distention of abd due to aerophagia from bipap, abd xray does not reveal free air HTN/HLD/Hypothyroid Chronic hyponatremia Sig worsening of mental status due to hypercarbia ALtered lfts 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 IF there is a sig leak will remove ngt Broad spectrum abx Iv steroids NPO Check tsh HOld bp meds for now If needed will use iv dilt in the future if she becomes tachy Hold diuretics Nebs atc Check mg level sputum culture Urine leigenella antigen and strep pneumo antigen Flu swab DNR and DNI discussed with the . IF worse he wishes no further agg rx and wish to cont current rx including icu care as she is improving slightly Prog poor to guarded Pt is critically ill tts 50mins Consult Acknowledgment - Thank you for your consult request.
--- NOTE | 2016-12-06 13:11 | Admission Certification ---
Admission Certification Certification Statement - As attending physician, I certify that at the time of - admission, based on clinical presentation, severity of - symptoms, need for further diagnostic testing and - therapeutic interventions, and risk of adverse outcomes - without in-hospital treatment, in my clinical assessment, - this patient requires an acute hospital stay for a minimum - of two nights or longer. I have also considered psychsocial - factors such as support system, advanced age, financial - issues, cognitive issues, and failed out-patient treatments, - past re-admission history, safety of patient, and lack of - compliance as applicable. Specific rationale supporting this admission is: Resp failure
--- NOTE | 2016-12-06 13:15 | NUR ---
NGT UNABLE TO BE PLACED AT THIS TIME. RESIDENT PAGED. THIS RN ATTEMPTED X2 WITHOUT SUCCESS.
--- NOTE | 2016-12-06 13:42 | NUR ---
PER RESIDENT, SHE WILL TRY TO PLACE NGT WHEN THE PT GOES TO ICU. RESP AT BEDSIDE FOR ABG.
--- NOTE | 2016-12-06 13:43 | NUR ---
BED ASSIGNMENT 108
--- NOTE | 2016-12-06 14:23 | NUR ---
REPORT GIVEN TO JESSICA IN ICU. DISTRIBUTION CALLED
[2016-12-06 15:00] VITALS: BP 132/80
--- NOTE | 2016-12-06 16:44 | RADIOLOGY REPORT ---
EXAMINATION: XR PORTABLE CHEST CLINICAL INFORMATION: NG tube positioning. COMPARISON: Abdominal radiography and chest radiography 12/08/2014. TECHNIQUE: Portable view of the chest was obtained. FINDINGS: The enteric tube courses below the diaphragm and terminates out of the field of view over the left mid to upper abdomen. There is bibasilar lung opacification with blunting of the costophrenic angles. Mediastinal contours have not significantly changed. Right shoulder arthroplasty hardware. No significantly dilated loops of large or small bowel demonstrated. IMPRESSION: NG tube courses below the diaphragm, with tip out of field of view over the left mid to upper abdomen. This likely terminates within the stomach; please correlate with tube function. Persistent bilateral lower lobe opacification, likely reflecting pleural effusions and adjacent parenchymal atelectasis/consolidation.
--- NOTE | 2016-12-06 17:08 | Event Note ---
Event Note Event Note: Situation Removal of NG tube in the setting of difficult BiPAP placement. Brief: Patient is initially placed on NG tube as her abdomen is distended due to aerophagia. Once NG tube placed her distension resolved and abdomen became much softer. As her blood gases are still acidotic - again need to be placed on BiPAP, however NG tube made it much difficult. Assessment and plan Removed NG tube Please replace it as needed if distention recurs.
[2016-12-07] VITALS: BP 108/73
--- NOTE | 2016-12-07 01:27 | NUR ---
LATE ENTRY: FAMILY AT BEDSIDE DISCUSSED PLAN OF CARE WITH DR MIGUEL. PT MORE ALERT SITTER AT BEDSIDE, RESTRAINTS TO WRISTS PT ATTEMPTING TO PULL OFF MASK.
[2016-12-07 04:38] LABS: ABSOLUTE BASOPHIL COUNT 0 /CUMM (0.0-0.2); ABSOLUTE EOSINOPHIL COUNT 0 /CUMM (0.0-0.7); ABSOLUTE GRANULOCYTE CT 10.7 /CUMM (1.4-6.5); ABSOLUTE LYMPH COUNT 0.4 /CUMM (1.2-3.4); ABSOLUTE MONOCYTE COUNT 0.5 /CUMM (0.10-0.60); BASOPHIL % 0.2 % (0.0-2.0); EOSINOPHIL % 0 % (0-5); GRANULOCYTE % 92.1 % (42.2-75.2); HEMATOCRIT 33.1 % (37-47); MEAN CORPUSCULAR HGB CONC 32.5 G/DL (33.0-37.0); MEAN CORPUSCULAR VOLUME 95.3 FL (81.0-99.0); MEAN PLATELET VOLUME 6.9 FL (7.4-10.4); PLATELET COUNT 279 /CUMM (130-400); RBC DISTRIBUTION WIDTH 14.9 % (11.5-14.5); RED BLOOD CELL CT 3.47 /CUMM (4.20-5.40); WHITE BLOOD CELL COUNT 11.6 /CUMM (4.8-10.8)
[2016-12-07 08:00] VITALS: BP 130/80
--- NOTE | 2016-12-07 08:20 | NUR ---
DR ALEJANDRO AWARE OF URINE OUTPUT AT 0500. PT MORE AWAKE, DOES NOT REMEMBER COMING TO HOSPITAL CONFUSED TO TIME, STILL ATTEMPTING TO REMOVE BIPAP MOUTH CARE GIVEN W/O DESAT. SITTER AT BEDSIDE SOFT RESTRAINTS TO WRISTS.
--- NOTE | 2016-12-07 09:50 | PN- CRCU ---
Subjective HPI/Critical Care Issues: More awake Wants to eat Wants to be out of bed Less confused Off BiPAP this morning Still on 5 L nasal cannula saturating 95% Review of symptoms otherwise unremarkable Still a little tachypneic O2 sat 95% on 5 L Significant data Reviewed bicarbonate 40 potassium 4 BUN is 39. Troponin is normal liver enzymes improving BNP of 14,700 white count 11.6. ABGs reviewed from this morning 7 12/1957 which appears to be her baseline and 66 on 40% BiPAP urine grew gram- positive cocci 100,000 Objective Current Medications: Current Medications Sig/Lashon Start time Last Medication Dose Route Stop Time Status Admin Albuterol Sulfate 3 ML Q4 12/06 2200 AC 12/07 INH 0822 Azithromycin 500 MG DAILY 12/07 1000 AC Dextrose/Water 250 ML IV Azithromycin 500 MG ONCE ONE 12/06 1030 DC 12/06 Dextrose/Water 250 ML IV 12/06 1129 1043 Ceftazidime 0 .STK-MED ONE 12/06 1037 DC .ROUTE Ceftazidime 1,000 MG ONCE ONE 12/06 1030 DC 12/06 IV 12/06 1031 1043 Ceftriaxone Sodium 1,000 MG DAILY 12/07 1000 AC IV Dextrose/Sodium 1,000 ML Q20H 12/07 0815 AC Chloride IV 12/08 0414 Enoxaparin Sodium 40 MG DAILY 12/06 1500 AC 12/06 SC 1810 Enoxaparin Sodium 70 MG BID 12/06 1440 DC SC Furosemide 40 MG ONCE ONE 12/06 1800 DC 12/06 IV 12/06 1801 1810 Ipratropium [place] 2.5 ML Q4 12/06 2200 AC 12/07 INH 0822 Levothyroxine Sodium 0.025 MG DAILY AC 12/07 0700 AC PO Methylprednisolone 40 MG Q8 12/07 0600 AC 12/07 IV 0546 Methylprednisolone 40 MG Q8 12/06 2200 DC IV Methylprednisolone 0 .STK-MED ONE 12/06 0941 DC .ROUTE Prednisone 10 MG .[SI] 12/06 1800 DC PO Sodium Chloride 1,000 ML ONCE ONE 12/06 1115 DC 12/06 IV 12/06 1754 1214 Sodium Chloride 1,000 ML BOLUS ONE 12/06 1100 DC 12/06 IV 12/06 1159 1045 Sodium Chloride 1,000 ML BOLUS ONE 12/06 1030 DC 12/06 IV 12/06 1129 1043 Vancomycin HCl 1,000 MG ONCE ONE 12/06 1030 DC 12/06 Dextrose/Water 250 ML IV 12/06 1129 1204 Vital Signs & I&O Last 24 Hrs of Vitals and I&O: Vital Signs Date Time Temp Pulse Resp B/P Pulse O2 O2 Flow FiO2 Ox Delivery Rate 12/07 0840 95 Nasal 5.0L Cannula 12/07 0839 114 97 12/07 0534 112 93 12/07 0400 94 BIPAP 40% 12/07 0249 107 96 12/07 0028 118 96 12/07 0000 95 BIPAP 40% 12/07 0000 98.4 120 20 108/73 95 BIPAP 40% 12/06 2214 118 95 12/06 2000 91 BIPAP 40% 12/06 1910 120 95 12/06 1848 BIPAP 40% 12/06 1600 126 99 12/06 1500 98.2 120 28 132/80 98 BIPAP 65% 12/06 1500 98 BIPAP 65% 12/06 1450 111 96 12/06 1432 98.3 109 24 124/84 93 BIPAP 65% 12/06 1412 100 99 12/06 1358 94 BIPAP 60% 12/06 1255 98.3 99 24 128/79 94 BIPAP 75% 12/06 1137 100 95 12/06 1128 98.3 103 24 124/80 83 BIPAP 40% 12/06 1056 98.6 91 24 115/89 86 BIPAP 40% 12/06 1026 89 80/60 12/06 0957 96 12/06 0956 96 BIPAP 40% Intake & Output 12/07 1600 12/07 0800 12/07 0000 Intake Total 0 Output Total 260 1900 Balance -260 -1900 Intake, Oral 0 Number 1 Bowel Movements Output, 150 Gastric Drainage Output, Urine 260 1750 Impression/Plan Impression/Plan Impression/Plan: IMPRESSION Pt with end stage copd with Acute hypoxic and hypercarbic resp failure due to progressive lung failure with prob super imposed pna Significant tachycardia appears to be sinus tachycardia, no previous history suggestive of significant atrial fibrillation however this cannot be ruled out Probable UTI Resolved SIg distention of abd due to aerophagia from bipap, and bagging HTN/HLD/Hypothyroid Chronic hyponatremia Improving mental status due to hypercarbia, now back to baseline ALtered lfts, improving 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 Galindo to see the patient for tachy * IF she passes swallow eval, start dilt po q 6 hrs short acting * Repeat chest x-ray tomorrow * Do not do ABG unless patient is unresponsive * Give one dose of Diamox intravenously today 250 mg 1 * Potassium runs 20 Meq today * Needs a swallowing eval * If the patient is more awake and if she is sitting upright, then a bedside swallowing eval by the house staff or the nurse can be done to see if she can swallow, if speec path is not available * Increase activity * Minimize any sedative drugs * Continue nebulizer therapy, if tachy only use ipratropium and hold albuterol * Solu-Medrol 40 mg every 12 today and was changed to prednisone 40 daily when she can take by mouth * If she cannot take by mouth give one dose of intravenous levothyroxine 25 MCG * If the blood pressure were to slowly increase we will institute verapamil or diltiazem and will slowly start her on valsartan (please note- patient was both on fosinopril and valsartan and patient would only require valsartan for now if the blood pressure were to increase in the future) DNR and DNI discussed with the . IF worse he wishes no further agg rx and wish to cont current rx including icu care as she is improving slightly Pt is critically ill tts 35
--- NOTE | 2016-12-07 10:20 | PN- Resident CRCU ---
Subjective HPI/CRCU Issues: Patient seen and examined. She is seen sitting propped up in bed maintained on BiPAP with bilateral upper extremity restraints in place. She appears agitated and in mild distress. When asked if she has any pain or complaints she says she feels better and wants to go home and to call her to pick her up. Review of systems is unobtainable. Overnight patient was reportedly pulling off her BiPAP and pulling at her Ramos catheter for which restraints and a sitter were ordered. Objective Vital Signs & I&O Last 8 Hrs of Vitals and I&O: Vitals: - Temperature: - Heart Rate: 114-128 - Respiratory Rate: 14-27 - Systolic Blood pressure: 103-150 - Diastolic Blood pressure: 75-91 - Oxygen Saturation: 93-95% on 40% FiO2 via BiPAP Exam General Appearance: awake, anxious, mild distress, obese Other Physical Findings: General -well-developed, obese elderly woman in upper extremity restraints in mild distress HEENT - NCAT, PERRL, EOMI, anicteric sclera, BiPAP mask Cardio - S1, S2 w/o murmurs/gallops/rubs Resp -rhonchi and wheezing heard in all lung valle, minimal bibasilar crackles GI - soft, obese, nontender, nondistended, bowel sounds present -Ramos catheter in place Neuro - Awake and alert, CN II - XII grossly intact Extremities - no edema, pulses intact Current Medications: Current Medications Sig/Lashon Start time Last Medication Dose Route Stop Time Status Admin Albuterol Sulfate 3 ML Q4 12/06 2200 AC 12/07 INH 0822 Azithromycin 500 MG DAILY 12/07 1000 AC Dextrose/Water 250 ML IV Azithromycin 500 MG ONCE ONE 12/06 1030 DC 12/06 Dextrose/Water 250 ML IV 12/06 1129 1043 Ceftazidime 0 .STK-MED ONE 12/06 1037 DC .ROUTE Ceftazidime 1,000 MG ONCE ONE 12/06 1030 DC 12/06 IV 12/06 1031 1043 Ceftriaxone Sodium 1,000 MG DAILY 12/07 1000 AC IV Dextrose/Sodium 1,000 ML Q20H 12/07 0815 AC Chloride IV 12/08 0414 Enoxaparin Sodium 40 MG DAILY 12/06 1500 AC 12/06 SC 1810 Enoxaparin Sodium 70 MG BID 12/06 1440 DC SC Furosemide 40 MG ONCE ONE 12/06 1800 DC 12/06 IV 12/06 1801 1810 Ipratropium [place] 2.5 ML Q4 12/06 2200 AC 12/07 INH 0822 Levothyroxine Sodium 0.025 MG DAILY AC 12/07 0700 AC PO Methylprednisolone 40 MG Q8 12/07 0600 AC 12/07 IV 0546 Methylprednisolone 40 MG Q8 12/06 2200 DC IV Prednisone 10 MG .[SI] 12/06 1800 DC PO Sodium Chloride 1,000 ML ONCE ONE 12/06 1115 DC 12/06 IV 12/06 1754 1214 Sodium Chloride 1,000 ML BOLUS ONE 12/06 1100 DC 12/06 IV 12/06 1159 1045 Sodium Chloride 1,000 ML BOLUS ONE 12/06 1030 DC 12/06 IV 12/06 1129 1043 Vancomycin HCl 1,000 MG ONCE ONE 12/06 1030 DC 12/06 Dextrose/Water 250 ML IV 12/06 1129 1204 Impression/Plan Impression/Problem List Impression: Patient continues to remain hypoxic and hypercarbic despite being maintained on BiPAP consistently. She is still maintained on intravenous antibiotics and steroids. She remains altered and in several requiring restraints and a sitter. She failed a bedside swallow evaluation this morning for which a formal swallow evaluation was ordered. She was started on Lasix and Cardizem per Cardiology recommnedations. Problem list: -Acute hypoxic/hypercarbic respiratory failure, on BiPAP -Altered mental status, restraints and sitter in place -Tachycardia and irregular rhythm, possibly MAT -COPD exacerbation with possible Pneumonia, on steroids/antibiotics Respiratory: History of end-stage COPD on 4.0 L home O2. -TRC neb -Bipap, O2 goal 88-92% -Ceftriaxone 1g IV Daily -Azithromycin 500mg IV Daily -Methylprednisone 40mg IV changed to Q12H -Ipratropium -Legionella/Strep Antigen negative Cardiovascular: History of hypertension. -Monitor I&Os -EKG demonstrates tachycardia with irregular rhythm -Troponin negative x3 -Lasix 40mg IV Daily -Cardizem -Cardiology consult placed -Daily ICU Bundle Infectious Disease: -TMAX: 98.4 -Urine Culture (12/06/16): Gram positive Cocci -F/U C&S Endocrine: History of hypothyroidism. -Patient reportedly no longer taking levothyroxine per Diet - NPO, swallow evaluation pending DVT PPx - Lovenox Code Status - DNR/DNI Problem List: 1. COPD (chronic obstructive pulmonary disease) Pain Ratin Tomorrow's Labs & Rationales: CBC ICU CXR Plan DVT/Prophylaxis: pharmacological
--- NOTE | 2016-12-07 12:38 | Cons- Cardiology ---
General Information and HPI Consulting Request Date of Consult: 12/07/16 Requested By: QUINTON LEWIS,CHERIE Briceno Reason for Consult: Tachycardia, CHF History of Present Illness: The patient is an 89-year-old female with history of severe COPD, hypertension, and HFpEF who is followed in the office by Dr. Carrasco at [facility]. She was recently admitted for COPD exacerbation and acute on chronic HFpEF, and was discharged to home on November 24. She presented yesterday with complaint of worsening shortness of breath. Her found her to be tired and lethargic. She was unable to perform her normal activities of daily living. The shortness of breath was increased with activity such as ambulation. Her oxygen saturation was found to be 62% when her checked at home. She was admitted for COPD exacerbation. While in the hospital she is noted to have intermittent tachycardia which appears to be multifocal atrial tachycardia. She has been started on antibiotics for possible pneumonia. No chest pain. No syncope. No diaphoresis. No nausea vomiting. Allergies/Medications Allergies: Coded Allergies: NO KNOWN ALLERGIES (05/29/16) Home Med List: Albuterol Sulfate (Proventil Hfa) 90 MCG HFA.AER.AD 2 PUF INH 4 TIMES/DAY COPD (Reported) Azithromycin 250 MG TABLET 250 MG PO DAILY LUNG INFECTION Fluticasone-Salmeterol (Advair 100-50 Diskus) 100 MCG-50 MCG/DOSE BLST.W.DEV 1 PUF INH BID BREATING (Reported) Fosinopril Sodium 40 MG TABLET 1 TAB PO DAILY BLOOD PRESSURE Furosemide 20 MG TABLET 1 TAB PO DAILY CHF Hold HCTZ (one of your BP medication) while taking this med. Call lock corner machine operator if BP not under control. Guaifenesin (Guaifenesin ER) 600 MG TAB.ER.12H 600 MG PO Q12 MUCOUS THINNER Levothyroxine Sodium (Levothroid) 0.025 MG TAB 0.025 MG PO DAILY THYROIDS ( Reported) Prednisone 10 MG TABLET 1 TAB PO SI COPD TAKE 4 TABS FOR THREE DAYS (11/25/15-11/27/15) TAKE 3 TABS FOR THREE DAYS (11/28/15-11/30/15) TAKE 2 TABS FOR THREE DAYS (12/01/15-12/03/15) TAKE 1 TAB FOR THREE DAYS (12/04/15-1-12/06/15) Tiotropium [place] (Spiriva) 18 MCG CAP.W.DEV 1 CAP INH DAILY BREATHING ( Reported) Valsartan/Hydrochlorothiazide (Valsartan-Hctz 320-25 MG Tab) 1 EACH TABLET 1 TAB PO DAILY HEART (Reported) VERAPAMIL HCL (Verapamil ER) 240 MG TABLET.ER 360 MG PO DAILY BLOOD PRESSURE (Reported) Current Medications: Current Medications Sig/Lashon Start time Last Medication Dose Route Stop Time Status Admin Acetazolamide 250 MG ONCE ONE 12/07 1030 DC 12/07 Sodium Chloride 50 ML IV 12/07 1059 1140 Albuterol Sulfate 3 ML Q4 12/06 2200 AC 12/07 INH 0822 Azithromycin 500 MG DAILY 12/07 1000 AC 12/07 Dextrose/Water 250 ML IV 1012 Ceftriaxone Sodium 1,000 MG DAILY 12/07 1000 AC 12/07 IV 1011 Dextrose/Sodium 1,000 ML Q20H 12/07 0815 AC 12/07 Chloride IV 12/08 0414 1011 Enoxaparin Sodium 40 MG DAILY 12/06 1500 AC 12/06 SC 1810 Enoxaparin Sodium 70 MG BID 12/06 1440 DC SC Furosemide 40 MG ONCE ONE 12/06 1800 DC 12/06 IV 12/06 1801 1810 Ipratropium [place] 2.5 ML Q4 12/06 2200 AC 12/07 INH 1142 Levothyroxine Sodium 12.5 MCG DAILY AC 12/07 1027 AC 12/07 IV 1140 Levothyroxine Sodium 0.025 MG DAILY AC 12/07 0700 DC PO Methylprednisolone 40 MG Q12 12/07 2200 AC IV Methylprednisolone 40 MG Q8 12/07 0600 DC 12/07 IV 0546 Methylprednisolone 40 MG Q8 12/06 2200 DC IV Potassium Chloride 10 MEQ Q1H 12/07 1100 DC 12/07 IV 12/07 1201 1125 Potassium Chloride 20 MEQ ONCE ONE 12/07 1030 CAN IV 12/07 1031 Prednisone 10 MG .[SI] 12/06 1800 DC PO Sodium Chloride 1,000 ML ONCE ONE 12/06 1115 DC 12/06 IV 12/06 1754 1214 Review of Systems Review of Systems: No rash. No tremor. No melena. No diaphoresis. No syncope. All other systems were reviewed, and were noted to be negative. 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 Home Who Do You Live With? spouse Services at Home: Oxygen Primary Language: Ug[place] Smoking Status: Former Smoker ETOH Use: occasional use Power of Director Of Acquisition Marketing/HCP? 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 Ambulation: walker IADLs Needs Assist: shopping, housework, finances, food prep, telephone, transportation. 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 Exam & Diagnostic Data Vital Signs and I&O Vital Signs Date Time Temp Pulse Resp B/P Pulse O2 O2 Flow FiO2 Ox Delivery Rate 12/07 0840 95 Nasal 5.0L Cannula 12/07 0839 114 97 12/07 0534 112 93 12/07 0400 94 BIPAP 40% 12/07 0249 107 96 12/07 0028 118 96 12/07 0000 95 BIPAP 40% 12/07 0000 98.4 120 20 108/73 95 BIPAP 40% 12/06 2214 118 95 12/06 2000 91 BIPAP 40% 12/06 1910 120 95 12/06 1848 BIPAP 40% 12/06 1600 126 99 12/06 1500 98.2 120 28 132/80 98 BIPAP 65% 12/06 1500 98 BIPAP 65% 12/06 1450 111 96 12/06 1432 98.3 109 24 124/84 93 BIPAP 65% 12/06 1412 100 99 12/06 1358 94 BIPAP 60% 12/06 1255 98.3 99 24 128/79 94 BIPAP 75% Intake & Output 12/07 1600 12/07 0800 12/07 0000 12/06 1600 12/06 0800 12/06 0000 Intake Total 0 Output Total 260 1900 Balance -260 -1900 0 Intake, Oral 0 Number 1 Bowel Movements Output, 150 Gastric Drainage Output, Urine 260 1750 Patient 173 lb Weight Physical Exam: Gen: The patient is in no acute distress HEENT: Normal nose, ears, and oropharynx. Pupils equal bilaterally. Conjunctiva normal. Neck: Supple with no JVD, no masses, and no thyromegaly Lungs: Bilateral wheezing with increased respiratory effort Heart: RRR, S1, S2, 2/6 systolic murmur. 2+ peripheral edema, 1+ pulses in the lower extremities bilaterally Abdomen: Soft, nontender, no masses. No hepatomegaly. No splenomegaly Extremities: No clubbing or cyanosis. Normal muscle strength in the upper and lower extremities Skin: Normal skin turgor with no skin ulcers or lesions noted. Neuro: Cranial nerves intact. Sensation intact Psych: Alert and oriented 3 with appropriate affect Labs/Pedro Results: Laboratory Tests 12/07 12/07 0834 0400 Blood Gas pH (7.35 - 7.45 PH) 7.42 pCO2 (35 - 45 TORR) 60 *H pO2 (80 - 100 TORR) 66 L HCO3 (21 - 28 MEQ/L) 38 H ABG O2 Sat (Measured) (>96.0 %) 92.0 L Carboxyhemoglobin (1.5 - 5.0 %) 1.1 L O2 Concentration % 40% Temperature (97.0 - 100.0 FARH) 98.4 Respiration Rate (BPM) 24 O2 Delivery Method BIPAP Vent Mode ST Expiratory Pressure (CM H2O P) 6 Inspiratory Pressure (CM H2O P) 20 Chemistry Sodium (137 - 145 mmol/L) 132 L Potassium (3.5 - 5.1 mmol/L) 4.0 Chloride (98 - 107 mmol/L) 89 L Carbon Dioxide (22 - 30 mmol/L) 40 H Anion Gap (5 - 16) 3 L BUN (7 - 17 mg/dL) 39 H Creatinine (0.5 - 1.0 mg/dL) 0.8 Estimated GFR (>60 ml/min) > 60 Glucose (65 - 99 mg/dL) 106 H Calcium (8.4 - 10.2 mg/dL) 8.4 Phosphorus (2.5 - 4.5 mg/dL) 4.5 Magnesium (1.6 - 2.3 mg/dL) 1.9 Total Bilirubin (0.2 - 1.3 mg/dL) 0.6 AST (14 - 36 U/L) 29 ALT (9 - 52 U/L) 88 H Troponin I (< 0.11 ng/ml) 0.09 Albumin (3.5 - 5.0 g/dL) 3.2 L Hematology CBC w Diff MAN DIFF ORDERED WBC (4.8 - 10.8 /CUMM) 11.6 H RBC (4.20 - 5.40 /CUMM) 3.47 L Hgb (12.0 - 16.0 G/DL) 10.8 L Hct (37 - 47 %) 33.1 L MCV (81.0 - 99.0 FL) 95.3 MCH (27.0 - 31.0 PG) 31.0 RDW (11.5 - 14.5 %) 14.9 H Plt Count (130 - 400 /CUMM) 279 MPV (7.4 - 10.4 FL) 6.9 L Gran % (42.2 - 75.2 %) 92.1 H Lymphocytes % (20.5 - 51.1 %) 3.1 L Monocytes % (1.7 - 9.3 %) 4.6 Eosinophils % (0 - 5 %) 0 Basophils % (0.0 - 2.0 %) 0.2 Absolute Granulocytes (1.4 - 6.5 /CUMM) 10.7 H Absolute Lymphocytes (1.2 - 3.4 /CUMM) 0.4 L Absolute Monocytes (0.10 - 0.60 /CUMM) 0.5 Absolute Eosinophils (0.0 - 0.7 /CUMM) 0 Absolute Basophils (0.0 - 0.2 /CUMM) 0 Platelet Estimate (ADEQUATE) ADEQUATE Polychromasia 1+ Hypochromic-Microcytic 1+ PUBS MCHC (33.0 - 37.0 G/DL) 32.5 L Miscellaneous Phlebotomy Draw Site RIGHT RADIAL 12/06 12/06 12/06 12/06 1725 1704 1704 1410 Blood Gas pH (7.35 - 7.45 PH) 7.31 L pCO2 (35 - 45 TORR) 69 *H pO2 (80 - 100 TORR) 74 L HCO3 (21 - 28 MEQ/L) 34 H ABG O2 Sat (Measured) (>96.0 %) 93.0 L P-50 (Temp Corrected) N Carboxyhemoglobin (1.5 - 5.0 %) 0.5 L O2 Concentration % 40% Temperature (97.0 - 100.0 FARH) 98.2 Respiration Rate (BPM) 24 O2 Delivery Method FFM Vent Mode ST Expiratory Pressure (CM H2O P) 6 Inspiratory Pressure (CM H2O P) 20 Chemistry Lactic Acid (0.7 - 2.1 mmol/L) 1.3 Cancelled Troponin I (< 0.11 ng/ml) 0.09 Cortisol PM Sample (1.7 - 14.1) 24.1 H Miscellaneous Phlebotomy Draw Site RIGHT RADIAL 12/06 12/06 12/06 1340 1053 0940 Blood Gas pH (7.35 - 7.45 PH) 7.19 *L 7.28 *L pCO2 (35 - 45 TORR) 95 *H 89 *H pO2 (80 - 100 TORR) 90 41 *L HCO3 (21 - 28 MEQ/L) 35 H 41 H ABG O2 Sat (Measured) (>96.0 %) 96.0 73.0 L P-50 (Temp Corrected) YES Carboxyhemoglobin (1.5 - 5.0 %) 1.8 2.3 O2 Concentration % 75 4L Temperature (97.0 - 100.0 FARH) 98.3 98.6 Respiration Rate (BPM) 24 O2 Delivery Method BIPAP NC Vent Mode ST Expiratory Pressure (CM H2O P) 6 Inspiratory Pressure (CM H2O P) 20 Chemistry Sodium (137 - 145 mmol/L) 131 L Potassium (3.5 - 5.1 mmol/L) 4.8 Chloride (98 - 107 mmol/L) 86 L Carbon Dioxide (22 - 30 mmol/L) 39 H Anion Gap (5 - 16) 6 BUN (7 - 17 mg/dL) 39 H Creatinine (0.5 - 1.0 mg/dL) 0.8 Estimated GFR (>60 ml/min) > 60 BUN/Creatinine Ratio (7 - 25 %) 48.8 H Glucose (65 - 99 mg/dL) 134 H Calcium (8.4 - 10.2 mg/dL) 8.9 Total Bilirubin (0.2 - 1.3 mg/dL) 0.7 AST (14 - 36 U/L) 42 H ALT (9 - 52 U/L) 107 H Alkaline Phosphatase (<127 U/L) 68 Troponin I (< 0.11 ng/ml) 0.09 Sna-R-Wlzwlsieuxx Pept (<125 pg/mL) 49572 H Total Protein (6.3 - 8.2 g/dL) 6.4 Albumin (3.5 - 5.0 g/dL) 3.9 Globulin (1.9 - 4.2 gm/dL) 2.5 Albumin/Globulin Ratio (1.1 - 2.2 %) 1.6 TSH (0.270 - 4.200 uIU/mL) 1.750 Free T4 (0.85 - 1.93 ng/dL) 0.97 Miscellaneous Phlebotomy Draw Site RIGHT RADIAL RIGHT BRACHIAL 12/06 12/06 0940 0930 Blood Gas pH Cancelled pCO2 Cancelled pO2 Cancelled HCO3 Cancelled ABG O2 Sat (Measured) Cancelled P-50 (Temp Corrected) Cancelled Carboxyhemoglobin Cancelled O2 Concentration % Cancelled Temperature Cancelled O2 Delivery Method Cancelled Chemistry Lactic Acid (0.7 - 2.1 mmol/L) 1.4 Hematology CBC w Diff MAN DIFF ORDERED WBC (4.8 - 10.8 /CUMM) 16.4 H RBC (4.20 - 5.40 /CUMM) 3.93 L Hgb (12.0 - 16.0 G/DL) 12.3 Hct (37 - 47 %) 37.6 MCV (81.0 - 99.0 FL) 95.6 MCH (27.0 - 31.0 PG) 31.4 H RDW (11.5 - 14.5 %) 14.6 H Plt Count (130 - 400 /CUMM) 331 MPV (7.4 - 10.4 FL) 6.5 L Gran % (42.2 - 75.2 %) 91.2 H Lymphocytes % (20.5 - 51.1 %) 2.4 L Monocytes % (1.7 - 9.3 %) 5.8 Eosinophils % (0 - 5 %) 0.1 Basophils % (0.0 - 2.0 %) 0.5 Absolute Granulocytes (1.4 - 6.5 /CUMM) 14.9 H Absolute Lymphocytes (1.2 - 3.4 /CUMM) 0.4 L Absolute Monocytes (0.10 - 0.60 /CUMM) 0.9 H Absolute Eosinophils (0.0 - 0.7 /CUMM) 0 Absolute Basophils (0.0 - 0.2 /CUMM) 0.1 Platelet Estimate (ADEQUATE) VERIFIED BY SMEAR Basophilic Stippling 1+ Anisocytosis 1+ PUBS MCHC (33.0 - 37.0 G/DL) 32.8 L Miscellaneous Phlebotomy Draw Site Cancelled Diagnostic Data EKG Results EKG tracing is independently reviewed, and reveals multifocal atrial tachycardia at a rate of 131, left anterior fascicular block CXR Results NG tube courses below the diaphragm, with tip out of field of view over the left mid to upper abdomen. This likely terminates within the stomach; please correlate with tube function. Persistent bilateral lower lobe opacification, likely reflecting pleural effusions and adjacent parenchymal atelectasis/consolidation. Assessment/Plan Assessment/Plan The patient is an 89-year-old female with history of severe home oxygen dependent COPD and chronic HFpEF recently admitted with COPD exacerbation and HFpEF exacerbation, now readmitted with recurrent shortness of breath. She has been started on antibiotics for possible pneumonia. ProBNP is significant for the elevated above the level of her prior admission suggesting component of acute HFpEF. She is noted to have intermittent multifocal atrial tachycardia. No definite atrial fibrillation has been confirmed. Echocardiogram in October at [facility] showed normal LVEF. Urine cultures positive for gram-positive cocci Recommendations: * Treatment of COPD and possible pneumonia as per Dr. Lowry * If able to take po medications, start diltiazem 30 mg P0 every 8 hours for control of heart rate. If unable to take po medications, start diltiazem drip at 5 mg per hour. * Would diurese with Lasix 40 mg IV daily. * Monitor input and output. * Check basic metabolic profile daily. Consult Acknowledgment - Thank you for your consult request.
[2016-12-07 16:00] VITALS: BP 114/78
--- NOTE | 2016-12-07 23:32 | NUR ---
PT APPEARS TO HAVE CONVERTED TO NSR WITH ARRYTHMIA, HR NOW 70-80 ON CARDIZEM GTT AT 10MG/HR. MD KINSEY MADE AWARE, STAT EKG DONE, NO OTHER ORDERS AT THIS TIME.
[2016-12-08] VITALS: BP 122/76
[2016-12-08 05:07] LABS: ABSOLUTE BASOPHIL COUNT 0.1 /CUMM (0.0-0.2); ABSOLUTE EOSINOPHIL COUNT 0 /CUMM (0.0-0.7); ABSOLUTE GRANULOCYTE CT 12.2 /CUMM (1.4-6.5); ABSOLUTE LYMPH COUNT 0.2 /CUMM (1.2-3.4); ABSOLUTE MONOCYTE COUNT 0.1 /CUMM (0.10-0.60); BASOPHIL % 0.6 % (0.0-2.0); EOSINOPHIL % 0 % (0-5); HEMATOCRIT 33.4 % (37-47); MEAN CORPUSCULAR HGB 31.5 PG (27.0-31.0); MEAN CORPUSCULAR HGB CONC 33.1 G/DL (33.0-37.0); MEAN CORPUSCULAR VOLUME 95.2 FL (81.0-99.0); MEAN PLATELET VOLUME 6.6 FL (7.4-10.4); PLATELET COUNT 284 /CUMM (130-400); RBC DISTRIBUTION WIDTH 14.7 % (11.5-14.5); RED BLOOD CELL CT 3.51 /CUMM (4.20-5.40); WHITE BLOOD CELL COUNT 12.7 /CUMM (4.8-10.8)
[2016-12-08 05:43] LABS: GRANULOCYTE % 96.5 % (42.2-75.2)
[2016-12-08 08:00] VITALS: BP 134/74
--- NOTE | 2016-12-08 08:12 | RADIOLOGY REPORT ---
EXAMINATION: XR PORTABLE CHEST CLINICAL INFORMATION: COPD versus pneumonia. Assess for change. COMPARISON: Chest radiograph dated 12/06/2016. TECHNIQUE: Portable view of the chest was obtained. FINDINGS: The trachea remains in normal anatomic position. There is uncoiling of the thoracic aorta. There is unchanged moderate cardiomegaly. The right lower lung airspace disease appears unchanged when compared with the prior examination. The left lung is unchanged in appearance. There is no pneumothorax. No large pleural effusion is seen. Surgical changes status post right shoulder arthroplasty. Severe degenerative changes of the left shoulder. IMPRESSION: When compared with prior examination dated 12/06/2016 there has been no significant change in the right lower lung airspace disease. There is unchanged, moderate cardiomegaly.
--- NOTE | 2016-12-08 09:45 | PN- CRCU ---
Subjective HPI/Critical Care Issues: IMproving Stable WIshes to go home Eat breakfast DId use bipap Objective Current Medications: Current Medications Sig/Lashon Start time Last Medication Dose Route Stop Time Status Admin Acetazolamide 250 MG ONCE ONE 12/07 1030 DC 12/07 Sodium Chloride 50 ML IV 12/07 1059 1140 Albuterol Sulfate 3 ML Q4 12/08 1000 AC 12/08 INH 0809 Albuterol Sulfate 3 ML Q4 12/06 2200 DC 12/08 INH 0402 Azithromycin 500 MG DAILY 12/07 1000 AC 12/07 Dextrose/Water 250 ML IV 1012 Ceftriaxone Sodium 1,000 MG DAILY 12/07 1000 AC 12/07 IV 1011 Dextrose/Sodium 1,000 ML Q20H 12/07 0815 DC 12/07 Chloride IV 12/08 0414 1011 Diltiazem HCl 125 MG Q24H 12/07 1745 AC 12/08 Dextrose/Water 100 ML IV 0443 Diltiazem HCl 30 MG Q8 12/07 1400 DC 12/07 PO 1419 Enoxaparin Sodium 40 MG DAILY 12/06 1500 AC 12/06 SC 1810 Furosemide 40 MG DAILY 12/07 1300 AC 12/07 IV 1300 Ipratropium [place] 2.5 ML Q4 12/06 2200 AC 12/08 INH 0809 Levothyroxine Sodium 0.025 MG DAILY AC 12/08 0700 AC 12/08 PO 0446 Levothyroxine Sodium 12.5 MCG DAILY AC 12/07 1027 DC 12/07 IV 1140 Levothyroxine Sodium 0.025 MG DAILY AC 12/07 0700 DC PO Methylprednisolone 40 MG Q12 12/07 2200 DC 12/07 IV 12/08 0000 2104 Methylprednisolone 40 MG Q8 12/07 0600 DC 12/07 IV 0546 Potassium Chloride 10 MEQ Q1H 12/07 1100 DC 12/07 IV 12/07 1201 1300 Potassium Chloride 20 MEQ ONCE ONE 12/07 1030 CAN IV 12/07 1031 Prednisone 40 MG DAILY 12/08 1000 AC PO Vital Signs & I&O Last 24 Hrs of Vitals and I&O: Vital Signs Date Time Temp Pulse Resp B/P Pulse O2 O2 Flow FiO2 Ox Delivery Rate 12/08 0802 71 92 12/08 0557 74 92 12/08 0400 96 BIPAP 40% 12/08 0355 87 94 12/08 0313 72 93 12/08 0053 93 BIPAP 40% 12/08 0028 78 93 12/08 0000 92 BIPAP 40% 12/08 0000 97.3 80 24 122/76 92 BIPAP 40% 12/07 2228 97 92 12/07 2000 92 Nasal 5.0L Cannula 12/07 1640 90 Nasal 4.0L Cannula 12/07 1635 Nasal 5.0L Cannula 12/07 1600 94 Nasal 5.0L Cannula 12/07 1600 98.7 132 33 114/78 94 Nasal 5.0L Cannula 12/07 1200 92 Nasal 5.0L Cannula Intake & Output 12/08 1600 12/08 0800 12/08 0000 Intake Total 106 291 Output Total 300 750 Balance -194 -459 Intake, IV 66 131 Intake, Oral 40 160 Number 0 0 Bowel Movements Output, Urine 300 750 Impression/Plan Impression/Plan Impression/Plan: IMPRESSION Pt with end stage copd with * Acute hypoxic and hypercarbic resp failure due to progressive lung failure with prob super imposed pna * Improving tachycardia appears to be sinus tachycardia, no previous history suggestive of significant atrial fibrillation * Probable UTI * Resolved SIg distention of abd due to aerophagia from bipap, and bagging * HTN/HLD/Hypothyroid * Chronic hyponatremia * Improving mental status due to hypercarbia, now back to baseline * ALtered lfts, improving * 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
--- NOTE | 2016-12-08 09:51 | PN- Resident CRCU ---
Subjective HPI/CRCU Issues: Saw patient at bedside this a.m. She was resting in bed with BiPAP on. She was unable to speak with me. Her respiratory therapist, supposedly, patient does not want to be on BiPAP. She seemed a little bit agitated this a.m. Objective Vital Signs & I&O Last 8 Hrs of Vitals and I&O: 97, 96, 24, 130/78. Exam General Appearance: mild distress, in bed with BiPAP Head: normal appearance Ears, Nose, Throat: unable to inspect due to BiPAP Neck: supple Respiratory: decreased breath sounds, crackles, rhonchi Cardiovascular: regular rate/rhythm Gastrointestinal: soft, non-tender Extremities: no edema, patient has bilateral lower extremity erythematous rash extending from a [place], mid calf. IV Drips IV Drips: Cardizem Current Medications: Current Medications Sig/Lashon Start time Last Medication Dose Route Stop Time Status Admin Acetazolamide 250 MG ONCE ONE 12/07 1030 DC 12/07 Sodium Chloride 50 ML IV 12/07 1059 1140 Albuterol Sulfate 3 ML Q4 12/08 1000 AC 12/08 INH 0809 Albuterol Sulfate 3 ML Q4 12/06 2200 DC 12/08 INH 0402 Azithromycin 500 MG DAILY 12/07 1000 AC 12/07 Dextrose/Water 250 ML IV 1012 Ceftriaxone Sodium 1,000 MG DAILY 12/07 1000 AC 12/07 IV 1011 Dextrose/Sodium 1,000 ML Q20H 12/07 0815 DC 12/07 Chloride IV 12/08 0414 1011 Diltiazem HCl 125 MG Q24H 12/07 1745 AC 12/08 Dextrose/Water 100 ML IV 0443 Diltiazem HCl 30 MG Q8 12/07 1400 DC 12/07 PO 1419 Enoxaparin Sodium 40 MG DAILY 12/06 1500 AC 12/06 SC 1810 Furosemide 40 MG DAILY 12/07 1300 AC 12/07 IV 1300 Ipratropium [place] 2.5 ML Q4 12/06 2200 AC 12/08 INH 0809 Levothyroxine Sodium 0.025 MG DAILY AC 12/08 0700 AC 12/08 PO 0446 Levothyroxine Sodium 12.5 MCG DAILY AC 12/07 1027 DC 12/07 IV 1140 Levothyroxine Sodium 0.025 MG DAILY AC 12/07 0700 DC PO Methylprednisolone 40 MG Q12 12/07 2200 DC 12/07 IV 12/08 0000 2104 Methylprednisolone 40 MG Q8 12/07 0600 DC 12/07 IV 0546 Potassium Chloride 10 MEQ Q1H 12/07 1100 DC 12/07 IV 12/07 1201 1300 Potassium Chloride 20 MEQ ONCE ONE 12/07 1030 CAN IV 12/07 1031 Prednisone 40 MG DAILY 12/08 1000 AC PO Antibiotics Antibiotic: azithromycin, Ceftriaxone Impression/Plan Impression/Problem List Impression: This is an 89-year-old female with past medical history of COPD on 4 L, hypertension, hypothyroidism, macular degeneration, who comes in with chief complaint of worsening shortness of breath. In ED she was found to be in both hypoxic and hypercarbic respiratory failure; started on BiPAP, chest x-ray and physical exam were suggestive pneumonia. Additionally, she was found to be tachycardic with altered mental status. As such, patient was admitted to ICU. She continues to remain hypoxic and hypercarbic despite being maintained on BiPAP. She remains altered and so requires a sitter. She failed a bedside swallow evaluation yesterday, as such she will go for MBS this a.m. Pending results of MBS we could switch her from IV diltiazem to by mouth Dilt 30 mg every 8, from IV azithromycin and ceftriaxone to by mouth Ceftin 250 mg twice a day, and IV Solu-Medrol 40 mg every 12 to by mouth prednisone 40. 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 Came in with hypoxic and hypercarbic respiratory failure secondary to ongoing failure and superimposed pneumonia. * TRC neb * Bipap, O2 goal 88-92% * Ceftriaxone 1g IV Daily * Azithromycin 500mg IV Daily * Methylprednisone 40mg IV changed to Q12H--> consider tapering down to by mouth prednisone * Ipratropium * Legionella/Strep Antigen negative Cardiovascular: History of hypertension. She and has 2/6 systolic ejection murmur at right upper sternal border. Electrolytes within normal limits this AM. Blood pressure medications are held. Will restart them as needed this a.m. * Monitor I&Os: This a.m. in 1222, output 1350. Negative net fluid balance * EKG demonstrates tachycardia with irregular rhythm * Troponin negative x3 * Cardizem drip * Cardiology consult placed * Daily ICU Bundle Infectious Disease: Patient has been afebrile overnight. She is currently on ceftriaxone and azithromycin for possible pneumonia, will switch to by mouth Ceftin. * Urine Culture (12/06/16): Gram positive Cocci > 100,000 CFU. Pending species and sensitivity. Currently being treated with ceftriaxone and azithromycin; will switch to by mouth Ceftin 250 twice a day. patient has been afebrile, with a white count at 12.7 this AM. White count has been trending downwards since administration of antibiotics. We'll continue to monitor clinically. * F/U C&S Endocrine: History of hypothyroidism. * Patient reportedly no longer taking levothyroxine per Problem List: 1. Acute on chronic respiratory failure with hypoxia and hypercapnia Pain Ratin Pain Location: none Tomorrow's Labs & Rationales: ICU bundle Plan DVT/Prophylaxis: pharmacological Code Status: Do Not Resucitate/Intubat
--- NOTE | 2016-12-08 12:52 | NUR ---
PT IS AWAKE AND ORIENTED. O2 VIA N/C AT 5L. SHE REMAINS EXTREMELY SOB WITH MINIMAL EXERTION AND SHE IS UNABLE TO TURN HERSELF SIDE TO SIDE. COUGH IS NON PRODUCTIVE. MONITOR REMAINS ATRIAL TACH WITH VARYING RATE. PO CARDIEZEM STARTED AND IV CARDIEZEM WILL BE D/C/D. PT DOWNGRADED TO TELEMETRY AND IS WAITING A BED ASSIGNMENT. SHE DENIES PAIN. WANTS WATER BUT IS UNABLE TO TOLERATE SHE CHOKED WITH SMALL AMOUNT OF ICECHIPS. SHE IS BEING FED HER PUREED DIET WITH A LITTLE COUGHING.
--- NOTE | 2016-12-08 13:02 | PN- Cardiology ---
Subjective Subjective: Feeling somewhat better. Shortness of breath is improving. No chest pain. No palpitations. Objective Vital Signs and I&Os Vital Signs Date Time Temp Pulse Resp B/P Pulse O2 O2 Flow FiO2 Ox Delivery Rate 12/08 1143 94 Nasal 5.0L Cannula 12/08 0802 71 92 12/08 0800 89 Nasal 5.0L Cannula 12/08 0800 98.0 94 24 134/74 89 Nasal 5.0L Cannula 12/08 0557 74 92 12/08 0400 96 BIPAP 40% 12/08 0355 87 94 12/08 0313 72 93 12/08 0053 93 BIPAP 40% 12/08 0028 78 93 12/08 0000 92 BIPAP 40% 12/08 0000 97.3 80 24 122/76 92 BIPAP 40% 12/07 2228 97 92 12/07 2000 92 Nasal 5.0L Cannula 12/07 1640 90 Nasal 4.0L Cannula 12/07 1635 Nasal 5.0L Cannula 12/07 1600 94 Nasal 5.0L Cannula 12/07 1600 98.7 132 33 114/78 94 Nasal 5.0L Cannula Intake & Output 12/08 1600 12/08 0800 12/08 0000 12/07 1600 12/07 0800 12/07 0000 Intake Total 106 291 825 0 Output Total 300 750 063 790 4449 Balance -194 -459 525 -260 -1900 Intake, IV 66 131 675 Intake, Oral 40 160 150 0 Number 0 0 1 Bowel Movements Output, 150 Gastric Drainage Output, Urine 300 750 [phone] Patient 167 lb 168 lb Weight Physical Exam: Gen: The patient is in no acute distress HEENT: Normal nose, ears, and oropharynx. Pupils equal bilaterally. Conjunctiva normal. Neck: Supple with no JVD, no masses, and no thyromegaly Lungs: Bilateral wheezing with increased respiratory effort Heart: RRR, S1, S2, 2/6 systolic murmur. 1+ peripheral edema, 1+ pulses in the lower extremities bilaterally Abdomen: Soft, nontender, no masses. No hepatomegaly. No splenomegaly Extremities: No clubbing or cyanosis. Normal muscle strength in the upper and lower extremities Skin: Normal skin turgor with no skin ulcers or lesions noted. Current Medications: Current Medications Sig/Lashon Start time Last Medication Dose Route Stop Time Status Admin Acetazolamide 250 MG ONCE ONE 12/08 1115 DC Sodium Chloride 50 ML IV 12/08 1144 Albuterol Sulfate 3 ML Q4 12/08 1000 AC 12/08 INH 1142 Albuterol Sulfate 3 ML Q4 12/06 2200 DC 12/08 INH 0402 Azithromycin 500 MG DAILY 12/07 1000 DC 12/08 Dextrose/Water 250 ML IV 0947 Ceftriaxone Sodium 1,000 MG DAILY 12/07 1000 DC 12/08 IV 0946 Cefuroxime Sodium 250 MG BID 12/08 2200 AC PO Dextrose/Sodium 1,000 ML Q20H 12/07 0815 DC 12/07 Chloride IV 12/08 0414 1011 Diltiazem HCl 30 MG Q8 12/08 1400 AC PO Diltiazem HCl 125 MG Q24H 12/07 1745 DC 12/08 Dextrose/Water 100 ML IV 0443 Diltiazem HCl 30 MG Q8 12/07 1400 DC 12/07 PO 1419 Enoxaparin Sodium 40 MG DAILY 12/06 1500 AC 12/08 SC 0946 Furosemide 40 MG DAILY 12/07 1300 AC 12/08 IV 0946 Ipratropium [place] 2.5 ML Q4 12/06 2200 AC 12/08 INH 1143 Levothyroxine Sodium 0.025 MG DAILY AC 12/08 0700 AC 12/08 PO 0446 Levothyroxine Sodium 12.5 MCG DAILY AC 12/07 1027 DC 12/07 IV 1140 Methylprednisolone 40 MG Q12 12/07 2200 DC 12/07 IV 12/08 0000 2104 Patient Medication 1 UNIT 12/08 220 Teaching ED 12/08 220 Prednisone 40 MG ONCE ONE 12/08 1115 CAN PO 12/08 1116 Prednisone 40 MG DAILY 12/08 1000 AC 12/08 PO 0946 Results Last 48 Hrs of Labs/Mics: Laboratory Tests 12/08/16 0450: Anion Gap 8, Estimated GFR > 60, Glucose 176 H, Calcium 8.7, Phosphorus 4.2, Magnesium 2.0, Total Bilirubin 0.6, AST 26, ALT 76 H, Albumin 3.5, CBC w Diff NO MAN DIFF REQ, RBC 3.51 L, MCV 95.2, MCH 31.5 H, RDW 14.7 H, MPV 6.6 L, Gran % 96.5 H, Lymphocytes % 1.7 L, Monocytes % 1.2 L, Eosinophils % 0, Basophils % 0.6, Absolute Granulocytes 12.2 H, Absolute Lymphocytes 0.2 L, Absolute Monocytes 0.1 L, Absolute Eosinophils 0, Absolute Basophils 0.1, PUBS MCHC 33.1 12/07/16 0834: pH 7.42, pCO2 60 *H, pO2 66 L, HCO3 38 H, ABG O2 Sat (Measured) 92.0 L, Carboxyhemoglobin 1.1 L, O2 Concentration % 40%, Temperature 98.4, Respiration Rate 24, O2 Delivery Method BIPAP, Vent Mode ST, Expiratory Pressure 6, Inspiratory Pressure 20, Phlebotomy Draw Site RIGHT RADIAL 12/07/16 0400: Anion Gap 3 L, Estimated GFR > 60, Glucose 106 H, Calcium 8.4, Phosphorus 4.5, Magnesium 1.9, Total Bilirubin 0.6, AST 29, ALT 88 H, Troponin I 0.09, Albumin 3.2 L, CBC w Diff MAN DIFF ORDERED, RBC 3.47 L, MCV 95.3, MCH 31.0, RDW 14.9 H, MPV 6.9 L, Gran % 92.1 H, Lymphocytes % 3.1 L, Monocytes % 4.6, Eosinophils % 0, Basophils % 0.2, Absolute Granulocytes 10.7 H, Absolute Lymphocytes 0.4 L, Absolute Monocytes 0.5, Absolute Eosinophils 0, Absolute Basophils 0, Platelet Estimate ADEQUATE, Polychromasia 1+, Hypochromic- Microcytic 1+, PUBS MCHC 32.5 L 12/06/16 1725: pH 7.31 L, pCO2 69 *H, pO2 74 L, HCO3 34 H, ABG O2 Sat (Measured) 93.0 L, P- 50 (Temp Corrected) N, Carboxyhemoglobin 0.5 L, O2 Concentration % 40%, Temperature 98.2, Respiration Rate 24, O2 Delivery Method FFM, Vent Mode ST, Expiratory Pressure 6, Inspiratory Pressure 20, Phlebotomy Draw Site RIGHT RADIAL 12/06/16 1704: Lactic Acid 1.3 12/06/16 1704: Troponin I 0.09, Cortisol PM Sample 24.1 H 12/06/16 1410: Lactic Acid Cancelled 12/06/16 1340: pH 7.19 *L, pCO2 95 *H, pO2 90, HCO3 35 H, ABG O2 Sat (Measured) 96.0, P-50 ( Temp Corrected) YES, Carboxyhemoglobin 1.8, O2 Concentration % 75, Temperature 98.3, Respiration Rate 24, O2 Delivery Method BIPAP, Vent Mode ST, Expiratory Pressure 6, Inspiratory Pressure 20, Phlebotomy Draw Site RIGHT RADIAL Microbiology 12/06 1499 URINE ROUT: Legionella Antigen - COMP 12/06 1500 URINE ROUT: Streptococcus pneumoniae Antigen (M - COMP 12/06 1500 URINE ROUT: Urine Culture - COMP ENTEROCOCCUS 12/06 145 UPPER RESP: Surveillance Culture - COMP 12/06 1454 GI: Surveillance Culture - COMP Recent Imaging Studies: Chest x-ray: When compared with prior examination dated 12/06/2016 there has been no significant change in the right lower lung airspace disease. There is unchanged, moderate cardiomegaly. Assessment/Plan Assessment/Plan 1. COPD with acute exacerbation 2. Hypertension 3. Chronic HFpEF with acute exacerbation 4. Multifocal atrial tachycardia, improved on diltiazem Recommendations: * Resume verapamil, and discontinue diltiazem * Continue IV Lasix * Cpntinue other cardiac medications * Check basic metabolic profile daily Continue telemetry? Yes
--- NOTE | 2016-12-08 15:21 | RADIOLOGY REPORT ---
EXAMINATION: XR MODIFIED BARIUM SWALLOW CLINICAL INFORMATION: Shortness of breath. COMPARISON: None. TECHNIQUE: Modified barium swallow study performed with speech therapist. FLUOROSCOPY TIME: 2 minute, 19 seconds. FINDINGS: No evidence of any aspiration is noted. Minimal penetration is noted with thin liquid. Early spillage of food particles to the level of the vallecula is noted. A full detailed report will be dictated by the speech therapist. IMPRESSION: 1. No evidence of aspiration. 2. Minimal penetration with thin liquids. A full detailed report will be provided by the speech therapist.
[2016-12-08 16:00] VITALS: BP 130/70
--- NOTE | 2016-12-08 17:11 | NUR ---
PT WAS TRANSFERRED TO [facility] FOR MODIFIED BARIUM SWALLOW. DIET CHANGED TO NECTAR THICK. SHE WAS ABLE TO TAKE HER MEDS WITH THE NECTAR THICK LIQUIDS. ATTEMPTED TO FEED PT DINNER AND SHE BEGAN COUGHING AFTER A FEW SPOONS OF PUREED FOOD. SHE WAS KEPT IN SITTING POSITION AND NO FURTHER ATTEMPT MADE TO FEED HER THIS EVENING.
--- NOTE | 2016-12-08 20:47 | NUR ---
PT INSISTED ON TAKING BIPAP OFF. 2044. ON 5 LITERS. ALERT AND ORIENTED. ASKED OF 1 TEASPOON WATER. THICKENED WATER GIVEN. NO COUGHING.
[2016-12-09] VITALS: BP 118/60
--- NOTE | 2016-12-09 00:52 | NUR ---
PATIENT RECIEVED ALERT AND ORIENTED X3, SKIN PINK, WARM AND DRY, BLACK LEATHER BUFFER MAT WITH HEART RATE 90 TO 100/MIN, ABDOMEN SOFT, +BS, O2 AT 5L/MIN VIA NC- CONTINUOUS O2 SAT 89 TO 91%, BREATHE SOUNDS DISTANT, NO AUDIBLE CRACKLES/WHEEZES, BLE EDEMA +2- LLE WEEPING, CANTU TO GRAVITY WITH UTE COLORED CLEAR UO, SKIN CARE GIVEN, TURNED AND POSITIONED, SETTLED FOR SLEEP, CALL ALARM WITHIN REACH 0030 RT IN - PATIENT HAS REFUSED BIPAP THIS PM
--- NOTE | 2016-12-09 01:47 | NUR ---
0115 PATIENT DE-SATTING TO 82 TO 85% WHEN ASLEEP- RT NOTIFIED AND IN AT BEDSIDE- PATIENT MOUTH BREATHING WHILE ASLEEP- UNSUCCESFUL ATTEMPT TO USE VM AT 40% TO INCREASE O2 SAT WHILE ASLEEP, PATIENT AGREEABLE TO TRY BIPAP AT THIS TIME, PLACED ON BIPAP /, RR 24, FIO2 40% WITH INCREASE OF O2 SAT TO 92 TO 94%, CLOSE OBSERVATION MAINTAINED
--- NOTE | 2016-12-09 03:16 | NUR ---
PATIENT TOLERATING BIPAP WELL, SLEEPING SOUNDLY, HEART RATE 70 TO 80'S/MIN, O2 SAT MAINTAINED 93%
[2016-12-09 05:00] VITALS: BP 110/60
--- NOTE | 2016-12-09 05:55 | NUR ---
PATIENT AWAKE AND ORIENTED X3, HAD SLEPT SOUNDLY, BACK ON 5L O2 VIA NC PER PATIENT'S REQUEST- O2 SAT 92%, NO CHANGES IN STATUS NOTED, AWAITING AM MD ROUNDS
[2016-12-09 05:57] LABS: ABSOLUTE BASOPHIL COUNT 0.3 /CUMM (0.0-0.2); ABSOLUTE EOSINOPHIL COUNT 0 /CUMM (0.0-0.7); ABSOLUTE GRANULOCYTE CT 11.5 /CUMM (1.4-6.5); ABSOLUTE LYMPH COUNT 0.4 /CUMM (1.2-3.4); ABSOLUTE MONOCYTE COUNT 0.8 /CUMM (0.10-0.60); EOSINOPHIL % 0.1 % (0-5); HEMATOCRIT 33.1 % (37-47); MEAN CORPUSCULAR HGB 31.3 PG (27.0-31.0); MEAN CORPUSCULAR HGB CONC 32.7 G/DL (33.0-37.0); MEAN CORPUSCULAR VOLUME 95.8 FL (81.0-99.0); PLATELET COUNT 263 /CUMM (130-400); RED BLOOD CELL CT 3.46 /CUMM (4.20-5.40)
[2016-12-09 06:39] LABS: GRANULOCYTE % 89.1 % (42.2-75.2)
[2016-12-09 08:00] VITALS: BP 140/80
--- NOTE | 2016-12-09 08:44 | PN- Resident CRCU ---
Subjective HPI/CRCU Issues: Saw patient at bedside this a.m. She was off BiPAP and sitting up with nasal cannula. Her urine culture came back positive for greater than 100,000 CFU of enterococcus. Patient does have a Quez[place] in, she denies any urinary symptoms currently. She has been afebrile with a MAXIMUM TEMPERATURE of 97.1, white count 13 but she is on prednisone and otherwise asymptomatic from a perspective. 24 Hour Events: No acute overnight events. MAXIMUM TEMPERATURE overnight was 99, heart rate 101 , systolic blood pressure in 140s, and satting 98% on BiPAP. Objective Vital Signs & I&O Last 8 Hrs of Vitals and I&O: 99, 101, 24, 140/80, 98% Exam General Appearance: no apparent distress, alert, awake Head: atraumatic, normal appearance Ears, Nose, Throat: normal ENT inspection, hearing decreased Neck: supple Respiratory: chest non-tender, no respiratory distress, decreased breath sounds Cardiovascular: irregularly irregular Gastrointestinal: normal bowel sounds, soft, non-tender Extremities: pedal edema Quezada Site: quezada in Nutrition Nutrition: P.O. diet Current Medications: Current Medications Sig/Lashon Start time Last Medication Dose Route Stop Time Status Admin Acetazolamide 250 MG ONCE ONE 12/08 1115 DC 12/08 Sodium Chloride 50 ML IV 12/08 1144 1300 Albuterol Sulfate 3 ML Q4 12/08 1000 AC 12/09 INH 0835 Azithromycin 500 MG DAILY 12/07 1000 DC 12/08 Dextrose/Water 250 ML IV 0947 Ceftriaxone Sodium 1,000 MG DAILY 12/07 1000 DC 12/08 IV 0946 Cefuroxime Sodium 250 MG BID 12/08 2200 AC 12/08 PO 2151 Diltiazem HCl 30 MG Q8 12/08 1400 CAN PO Diltiazem HCl 125 MG Q24H 12/07 1745 DC 12/08 Dextrose/Water 100 ML IV 0443 Enoxaparin Sodium 40 MG DAILY 12/06 1500 AC 12/08 SC 0946 Furosemide 40 MG DAILY 12/07 1300 AC 12/08 IV 0946 Ipratropium [place] 2.5 ML Q4 12/06 2200 AC 12/09 INH 0835 Levothyroxine Sodium 0.025 MG DAILY AC 12/08 0700 AC 12/09 PO 0738 Patient Medication 1 UNIT 12/08 DC 12/08 Teaching ED 12/08 2201 2158 Prednisone 40 MG ONCE ONE 12/08 1115 CAN PO 12/08 1116 Prednisone 40 MG DAILY 12/08 1000 AC 12/08 PO 0946 Verapamil HCl 360 MG DAILY 12/08 1354 AC 12/08 PO 1652 Results Cultures: Culture: urine Date: 12/09/16 Isolate: enterococcus Impression/Plan Impression/Problem List Impression: This is an 89-year-old female with past medical history of COPD on 4 L, hypertension, hypothyroidism, macular degeneration, who comes in with chief complaint of worsening shortness of breath. In ED she was found to be in both hypoxic and hypercarbic respiratory failure; started on BiPAP, chest x-ray and physical exam were suggestive pneumonia. Additionally, she was found to be tachycardic with altered mental status. As such, patient was admitted to ICU. She continues to remain hypoxic and hypercarbic despite being maintained on BiPAP. She went for MBS yesterday and was advanced to pure and thin liquids. He is now able to take by mouth medication. 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 Came in with hypoxic and hypercarbic respiratory failure secondary to ongoing lung failure and superimposed pneumonia. One dose of Diamox 250 mg IV yesterday. * TRC neb * Bipap, O2 goal 88-92% * Ceftraixone and Azithromycin switched yesterday to Ceftin. BUT given that her urine is now growing enterococcus we will switch to Augmentin today to cover both sources. * Methylprednisone 40mg IV changed to Q12H--> is currently on 40 mg by mouth prednisone. We will consider tapering it slowly. * Ipratropium * Legionella/Strep Antigen negative Infectious Disease: Patient has been afebrile overnight with a MAXIMUM TEMPERATURE of 99.0 * Urine Culture (12/08/16): Enterococcus> 100,000 CFU. Sensitive to ampicillin, Macrobid and vancomycin; we will treat with Augmentin. Patient has been afebrile, with a white count at 13.0 this AM. However, she is currently on steroids. We'll continue to monitor clinically. * F/U C&S * Considering removing Quezada catheter Cardiovascular: History of hypertension. She and has 2/6 systolic ejection murmur at right upper sternal border. Rhythm sounds irregular on auscultation this AM. Electrolytes within normal limits this AM. Blood pressure medications are held. Will restart them as needed this a.m. * Telemetry hold * Troponin negative x3 * Patient switch from Cardizem drip to her home dose of by mouth verapamil. * Thank you for Cardiology consult * Daily ICU Bundle * Keep electrolytes within normal limits: Phosphorus today at 3.5. We'll adequately replete. * She has been getting IV furosemide 40 mg daily; We'll consider switching to by mouth Lasix. Endocrine: History of hypothyroidism. * Patient reportedly no longer taking levothyroxine per , we will start inpatient. Problem List: 1. Acute on chronic respiratory failure with hypoxia and hypercapnia 2. COPD exacerbation Pain Ratin Pain Location: none Tomorrow's Labs & Rationales: ICU bundle Plan DVT/Prophylaxis: pharmacological Code Status: Do Not Resucitate/Intubat
--- NOTE | 2016-12-09 10:34 | PN- Pulmonary ---
Subjective HPI/Critical Care Issues: She was off BiPAP and sitting up with nasal cannula. Her urine culture came back positive for greater than 100,000 CFU of enterococcus. Patient does have a Quezada in, she denies any urinary symptoms currently. She has been afebrile with a MAXIMUM TEMPERATURE of 97.1, white count 13 but she is on prednisone and otherwise asymptomatic from a perspective. 24 Hour Events: No acute overnight events. MAXIMUM TEMPERATURE overnight was 99, heart rate 101 , systolic blood pressure in 140s, and satting 98% on BiPAP. Objective Current Medications: Current Medications Sig/Lashon Start time Last Medication Dose Route Stop Time Status Admin Acetazolamide 250 MG ONCE ONE 12/08 1115 DC 12/08 Sodium Chloride 50 ML IV 12/08 1144 1300 Albuterol Sulfate 3 ML Q4 12/08 1000 AC 12/09 INH 0835 Amoxicillin/ 875 MG Q12 12/09 1000 AC Clavulanate Potassium PO Azithromycin 500 MG DAILY 12/07 1000 DC 12/08 Dextrose/Water 250 ML IV 0947 Ceftriaxone Sodium 1,000 MG DAILY 12/07 1000 DC 12/08 IV 0946 Cefuroxime Sodium 250 MG BID 12/08 2200 DC 12/08 PO 2151 Diltiazem HCl 30 MG Q8 12/08 1400 CAN PO Diltiazem HCl 125 MG Q24H 12/07 1745 DC 12/08 Dextrose/Water 100 ML IV 0443 Enoxaparin Sodium 40 MG DAILY 12/06 1500 AC 12/08 SC 0946 Furosemide 40 MG DAILY 12/07 1300 AC 12/08 IV 0946 Ipratropium [place] 2.5 ML Q4 12/06 2200 AC 12/09 INH 0835 Levothyroxine Sodium 0.025 MG DAILY AC 12/08 0700 AC 12/09 PO 0738 Patient Medication 1 UNIT 2200 12/08 2200 DC 12/08 Teaching ED 12/08 2201 2158 Phosphate 250 MG PC AND AT BEDTIME 12/09 0900 AC PO 12/09 1301 Prednisone 40 MG ONCE ONE 12/08 1115 CAN PO 12/08 1116 Prednisone 40 MG DAILY 12/08 1000 AC 12/08 PO 0946 Verapamil HCl 360 MG DAILY 12/08 1354 AC 12/08 PO 1652 Vital Signs & I&O Last 24 Hrs of Vitals and I&O: Vital Signs Date Time Temp Pulse Resp B/P Pulse O2 O2 Flow FiO2 Ox Delivery Rate 12/09 1030 99.0 84 24 140/80 12/09 0839 95 Nasal 5.0L Cannula 12/09 0800 98 Nasal 5.0L Cannula 12/09 0800 99.0 101 24 140/80 98 Nasal 5.0L Cannula 12/09 0519 74 91 12/09 0500 97.1 88 24 110/60 94 BIPAP 40% 12/09 0330 88 94 12/09 0116 83 92 12/09 0039 91 Nasal 5.0L Cannula 12/09 0000 90 Nasal 5.0L Cannula 12/09 0000 97.4 90 24 118/60 90 Nasal 5.0L Cannula 12/08 2223 92 92 12/08 1900 81 93 12/08 1652 130 130/70 12/08 1630 93 Nasal 6.0L Cannula 12/08 1600 89 Nasal 5.0L Cannula 12/08 1600 98.0 130 20 130/70 89 Nasal 5.0L Cannula 12/08 1428 Nasal 5.0L Cannula 12/08 1143 94 Nasal 5.0L Cannula Intake & Output 12/09 1600 12/09 0800 12/09 0000 Intake Total 50 50 Output Total 280 250 Balance -230 -200 Intake, Oral 50 50 Number 0 Bowel Movements Output, Urine 280 250 Impression/Plan Impression/Plan Impression/Plan: Exam General Appearance: no apparent distress, alert, awake Head: atraumatic, normal appearance Ears, Nose, Throat: normal ENT inspection, hearing decreased Neck: supple Respiratory: chest non-tender, no respiratory distress, decreased breath sounds Cardiovascular: irregularly irregular Gastrointestinal: normal bowel sounds, soft, non-tender Extremities: pedal edema Quezada Site: quezada in IMPRESSION Pt with end stage copd with * Acute hypoxic and hypercarbic resp failure due to progressive lung failure with prob super imposed pna * Improving tachycardia appears to be sinus tachycardia, no previous history suggestive of significant atrial fibrillation, still attimes tachy * UTI * HTN/HLD/Hypothyroid * Chronic hyponatremia * Improving mental status due to hypercarbia, now back to baseline * ALtered lfts, improving * 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 * Valvular heart disease, with high bnp with prob HF with Preserved EF REC * Po abx ok with augmentin total abx for seven days * Keep sao2 at 89 to 91 percent * Cont verapamil * PO lasix 40 mg alternating with diamox 250 po qd * PO potassium 20 meq daily * Minimize any sedative drugs * Continue nebulizer therapy, if tachy only use ipratropium and hold albuterol * Po prednisone 40 and taper in 8 days to 5 mg * Resume po levoxyl * Low dose arb if bp permits * Please order ABG to obtain baseline pco2 at 8 or 9 pm to eval for baseline hypercarbia * DC quezada TELe transfer Need to discuss with family and continuing care regarding placement to snf with bipap DNR and DNI pt wishes to go home with home care when able
--- NOTE | 2016-12-09 13:39 | PN- Cardiology ---
Subjective Subjective: Clinically, the patient appears to be improving slowly. She denies any new issues today. She is quite thirsty. She hopes to get out of bed to the recliner chair today if available. No new cardiac symptoms. Objective Vital Signs and I&Os Vital Signs Date Time Temp Pulse Resp B/P Pulse O2 O2 Flow FiO2 Ox Delivery Rate 12/09 1030 99.0 84 24 140/80 12/09 0839 95 Nasal 5.0L Cannula 12/09 0800 98 Nasal 5.0L Cannula 12/09 0800 99.0 101 24 140/80 98 Nasal 5.0L Cannula 12/09 0519 74 91 12/09 0500 97.1 88 24 110/60 94 BIPAP 40% 12/09 0330 88 94 12/09 0116 83 92 12/09 0039 91 Nasal 5.0L Cannula 12/09 0000 90 Nasal 5.0L Cannula 12/09 0000 97.4 90 24 118/60 90 Nasal 5.0L Cannula 12/08 2223 92 92 12/08 1900 81 93 12/08 1652 130 130/70 12/08 1630 93 Nasal 6.0L Cannula 12/08 1600 89 Nasal 5.0L Cannula 12/08 1600 98.0 130 20 130/70 89 Nasal 5.0L Cannula 12/08 1428 Nasal 5.0L Cannula Intake & Output 12/09 1600 12/09 0800 12/09 0000 12/08 1600 12/08 0800 12/08 0000 Intake Total 50 50 650 106 291 Output Total 280 250 800 300 750 Balance -230 -200 -150 -194 -459 Intake, IV 250 66 131 Intake, Oral 50 50 400 40 160 Number 0 0 0 0 Bowel Movements Output, Urine 280 250 800 300 750 Patient 167 lb Weight Current Medications: Current Medications Sig/Lashon Start time Last Medication Dose Route Stop Time Status Admin Acetazolamide 250 MG Q48 12/10 1000 UNVr PO Albuterol Sulfate 3 ML Q4 12/08 1000 AC 12/09 INH 1231 Amoxicillin/ 875 MG Q12 12/09 1000 AC 12/09 Clavulanate Potassium PO 1029 Cefuroxime Sodium 250 MG BID 12/08 2200 DC 12/08 PO 2151 Diltiazem HCl 30 MG Q8 12/08 1400 CAN PO Enoxaparin Sodium 40 MG DAILY 12/06 1500 AC 12/09 SC 1030 Furosemide 40 MG Q48 12/11 1000 UNVr PO Furosemide 40 MG Q48 12/09 1330 DCr PO Furosemide 40 MG DAILY 12/07 1300 DC 12/09 IV 1030 Ipratropium [place] 2.5 ML Q4 12/06 2200 AC 12/09 INH 1231 Levothyroxine Sodium 0.025 MG DAILY AC 12/08 0700 AC 12/09 PO 0738 Patient Medication 1 UNIT 2200 12/08 2200 DC 12/08 Teaching ED 12/08 2201 2158 Phosphate 250 MG PC AND AT BEDTIME 12/09 0900 DC 12/09 PO 12/09 1301 1029 Prednisone 5 MG DAILY 12/16 1000 UNVr PO 12/17 1001 Prednisone 10 MG DAILY 12/14 1000 UNVr PO 12/15 1001 Prednisone 20 MG DAILY 12/12 1000 UNVr PO 12/13 1001 Prednisone 30 MG DAILY 12/10 1000 UNVr PO 12/11 1001 Prednisone 40 MG DAILY 12/08 1000 DC 12/09 PO 1030 Verapamil HCl 360 MG DAILY 12/08 1354 AC 12/09 PO 1030 Results Last 48 Hrs of Labs/Mics: Laboratory Tests 12/09/16 0515: Anion Gap 5, Estimated GFR > 60, Glucose 116 H, Calcium 8.7, Phosphorus 3.5, Magnesium 2.2, Total Bilirubin 0.6, AST 26, ALT 69 H, Albumin 3.3 L, CBC w Diff NO MAN DIFF REQ, RBC 3.46 L, MCV 95.8, MCH 31.3 H, RDW 15.0 H, MPV 7.0 L, Gran % 89.1 H, Lymphocytes % 3.0 L, Monocytes % 5.8, Eosinophils % 0.1, Basophils % 2.0, Absolute Granulocytes 11.5 H, Absolute Lymphocytes 0.4 L, Absolute Monocytes 0.8 H, Absolute Eosinophils 0, Absolute Basophils 0.3, PUBS MCHC 32.7 L 12/08/16 0450: Anion Gap 8, Estimated GFR > 60, Glucose 176 H, Calcium 8.7, Phosphorus 4.2, Magnesium 2.0, Total Bilirubin 0.6, AST 26, ALT 76 H, Albumin 3.5, CBC w Diff NO MAN DIFF REQ, RBC 3.51 L, MCV 95.2, MCH 31.5 H, RDW 14.7 H, MPV 6.6 L, Gran % 96.5 H, Lymphocytes % 1.7 L, Monocytes % 1.2 L, Eosinophils % 0, Basophils % 0.6, Absolute Granulocytes 12.2 H, Absolute Lymphocytes 0.2 L, Absolute Monocytes 0.1 L, Absolute Eosinophils 0, Absolute Basophils 0.1, PUBS MCHC 33.1 Assessment/Plan Assessment/Plan Assessment/Plan 1. COPD with acute exacerbation 2. Hypertension 3. Chronic HFpEF with acute exacerbation 4. Multifocal atrial tachycardia, improved on diltiazem Recommendations: -Continued episodes of tachycardia suggestive of MAT. Interspersed with long episodes of being arrhythmia free. -Monitor on telemetry for now on current meds and continue treating underlying pulmonary disease. -If episodes persist, consider transitioning back to oral cardizem for improved rhythm control - COntinue gentle diuresis -Followup labs in AM Continue telemetry? No
--- NOTE | 2016-12-09 14:23 | NUR ---
PHYSICAL THERAPY CAME TO PERFORM A PT EVAL AND TREAT. PT WAS VERY TACHYPNEIC WITH PURSED LIP BREATHING AND THE O2 SAT WAS DOWN TO 84%, THIS OCCURED AT 1412. IN ADDITION, THE PT'S HR WAS NOTED TO HAVE INCREASED TP THE 110'S TO THE 130'S. PT ENCOURAGED TO TAKE SLOW DEEP BREATHS. CONTINUES TO PURSE LIP BREATHE BUT SAT IS NOW 86-89%. FILAMENT CUTTER NOTIFIED TO RETURN THE PT TO BIPAP. DR Serg CARRILLO MADE AWARE OF EVENT AND INABILITY TO REMOVE THE CANTU PT WILL DESATURATE WHEN ATTEMPTING TO USE THE BEDPAN-WHICH THE PT REFUSES TO DO. AT THIS TIME THE CANTU IS TO REMAIN IN PLACE.
--- NOTE | 2016-12-09 14:27 | NUR ---
Physical Therapy: Cx treatment session. Patient on 5L of O2 supine in bed tachycardic 122bpm, desat to 83-85% at rest. Will follow-up tomorrow as appropriate.
[2016-12-09 16:00] VITALS: BP 130/80
--- NOTE | 2016-12-09 17:50 | NUR ---
CANTU REMOVED AT 1745. DUE TO VOID [phone].
--- NOTE | 2016-12-09 18:40 | Event Note ---
Event Note Event Note: Pt dozed off and her sats dropped to 84 on 5L NC. Put her on bipap. Deferred ABG as a result.
--- NOTE | 2016-12-09 21:35 | NUR ---
avss.a/int conf to time and situation.follow commands.johnson weakly.on bipap trials with good effect; sats >90%.hob elevated.quyen po well.plan of care reviewed.
[2016-12-10] VITALS: BP 142/78
--- NOTE | 2016-12-10 03:32 | NUR ---
AT 0310 PATIENT IS AWAKE, AGITATED WITH LOW TEMPER, HIGH PITCH VOICE, ASKED TO REMOVED THE BiPAP MASK. EXPLAINED THE PURPOSE AND THE SITUATION WITHOUT THE BiPAP MASK TO PATIENT AND SHE UNDERSTAND, STILL SHE INSIST AND REFUSED THE MASK. RT IMFORMED AND SEEN THE PATIENT. PATIENT PUT ON NC AT 5 LITERS, SATTING AT 94-95%, RR IS 20'S, NO SIGNS OF DISTRESS.
[2016-12-10 03:52] LABS: ABSOLUTE BASOPHIL COUNT 0 /CUMM (0.0-0.2); ABSOLUTE EOSINOPHIL COUNT 0 /CUMM (0.0-0.7); ABSOLUTE GRANULOCYTE CT 13.7 /CUMM (1.4-6.5); ABSOLUTE LYMPH COUNT 0.3 /CUMM (1.2-3.4); BASOPHIL % 0 % (0.0-2.0); EOSINOPHIL % 0.3 % (0-5); HEMATOCRIT 33.6 % (37-47); MEAN CORPUSCULAR HGB 30.9 PG (27.0-31.0); MEAN CORPUSCULAR HGB CONC 32.4 G/DL (33.0-37.0); MEAN CORPUSCULAR VOLUME 95.5 FL (81.0-99.0); MEAN PLATELET VOLUME 6.9 FL (7.4-10.4); RBC DISTRIBUTION WIDTH 15.3 % (11.5-14.5); RED BLOOD CELL CT 3.51 /CUMM (4.20-5.40)
[2016-12-10 04:08] LABS: GRANULOCYTE % 91.4 % (42.2-75.2); PLATELET COUNT 264 /CUMM (130-400)
[2016-12-10 08:00] VITALS: BP 132/76
--- NOTE | 2016-12-10 09:59 | PN- Pulmonary ---
Subjective HPI/Critical Care Issues: Doing more fatigued. Patient has had increasing dyspnea and fatigue when she is not on BiPAP. She has mild agitation and confusion with severe hypercarbia. She also becomes hypoxemic while she is not on BiPAP. 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 Has been on and off BiPAP Did doze off yesterday and had hypoxemia in the evening requiring BiPAP No other significant events Review of symptoms otherwise unremarkable Objective Current Medications: Current Medications Sig/Lashon Start time Last Medication Dose Route Stop Time Status Admin Acetazolamide 250 MG Q48 12/10 1000 AC 12/10 PO 0936 Albuterol Sulfate 3 ML EVERY 4 HRS/AWAKE 12/09 1600 AC 12/10 INH 0819 Albuterol Sulfate 3 ML Q4 12/08 1000 DC 12/09 INH 1231 Amoxicillin/ 875 MG Q12 12/09 1000 AC 12/10 Clavulanate Potassium PO 0935 Enoxaparin Sodium 40 MG DAILY 12/06 1500 AC 12/10 SC 0935 Furosemide 40 MG Q48 12/11 1000 AC PO Furosemide 40 MG Q48 12/09 1330 DC PO Furosemide 40 MG DAILY 12/07 1300 DC 12/09 IV 1030 Ipratropium [place] 2.5 ML EVERY 4 HRS/AWAKE 12/09 1600 AC 12/10 INH 0819 Ipratropium [place] 2.5 ML Q4 12/06 2200 DC 12/09 INH 1231 Levothyroxine Sodium 0.025 MG DAILY AC 12/08 0700 AC 12/10 PO 0627 Phosphate 250 MG PC AND AT BEDTIME 12/09 0900 DC 12/09 PO 12/09 1301 1029 Prednisone 5 MG DAILY 12/16 1000 AC PO 12/17 1001 Prednisone 10 MG DAILY 12/14 1000 AC PO 12/15 1001 Prednisone 20 MG DAILY 12/12 1000 AC PO 12/13 1001 Prednisone 30 MG DAILY 12/10 1000 AC 12/10 PO 12/11 1001 0936 Prednisone 40 MG DAILY 12/08 1000 DC 12/09 PO 1030 Verapamil HCl 360 MG DAILY 12/08 1354 AC 12/10 PO 0939 Vital Signs & I&O Last 24 Hrs of Vitals and I&O: Vital Signs Date Time Temp Pulse Resp B/P Pulse O2 O2 Flow FiO2 Ox Delivery Rate 12/10 0839 84 132/76 12/10 0342 84 94 12/10 0051 76 93 12/10 0000 95 BIPAP 40% 12/10 0000 98.6 85 20 142/78 95 BIPAP 40% 12/09 2224 83 91 12/09 1930 121 90 12/09 1645 90 Nasal 5.0L Cannula 12/09 1600 95 Nasal 5.0L Cannula 12/09 1600 98.9 106 28 130/80 95 Nasal 5.0L Cannula 12/09 1030 99.0 84 24 140/80 Intake & Output 12/10 1600 12/10 0800 12/10 0000 Intake Total 120 300 Output Total Balance 120 300 Intake, Oral 120 300 Number 2 1 Bowel Movements Laboratory Tests 12/10 12/10 0820 0325 Blood Gas pH (7.35 - 7.45 PH) 7.35 pCO2 (35 - 45 TORR) 74 *H pO2 (80 - 100 TORR) 75 L HCO3 (21 - 28 MEQ/L) 40 H ABG O2 Sat (Measured) (>96.0 %) 92.0 L Carboxyhemoglobin (1.5 - 5.0 %) 1.1 L O2 Concentration % 5L O2 Delivery Method NC Chemistry Sodium (137 - 145 mmol/L) 133 L Potassium (3.5 - 5.1 mmol/L) 4.3 Chloride (98 - 107 mmol/L) 88 L Carbon Dioxide (22 - 30 mmol/L) 41 H Anion Gap (5 - 16) 4 L BUN (7 - 17 mg/dL) 37 H Creatinine (0.5 - 1.0 mg/dL) 0.7 Estimated GFR (>60 ml/min) > 60 Glucose (65 - 99 mg/dL) 123 H Calcium (8.4 - 10.2 mg/dL) 8.8 Phosphorus (2.5 - 4.5 mg/dL) 3.8 Magnesium (1.6 - 2.3 mg/dL) 2.2 Total Bilirubin (0.2 - 1.3 mg/dL) 0.7 AST (14 - 36 U/L) 21 ALT (9 - 52 U/L) 59 H Albumin (3.5 - 5.0 g/dL) 3.3 L Hematology CBC w Diff NO MAN DIFF REQ WBC (4.8 - 10.8 /CUMM) 15.0 H RBC (4.20 - 5.40 /CUMM) 3.51 L Hgb (12.0 - 16.0 G/DL) 10.9 L Hct (37 - 47 %) 33.6 L MCV (81.0 - 99.0 FL) 95.5 MCH (27.0 - 31.0 PG) 30.9 RDW (11.5 - 14.5 %) 15.3 H Plt Count (130 - 400 /CUMM) 264 MPV (7.4 - 10.4 FL) 6.9 L Gran % (42.2 - 75.2 %) 91.4 H Lymphocytes % (20.5 - 51.1 %) 1.8 L Monocytes % (1.7 - 9.3 %) 6.5 Eosinophils % (0 - 5 %) 0.3 Basophils % (0.0 - 2.0 %) 0 L Absolute Granulocytes (1.4 - 6.5 /CUMM) 13.7 H Absolute Lymphocytes (1.2 - 3.4 /CUMM) 0.3 L Absolute Monocytes (0.10 - 0.60 /CUMM) 1.0 H Absolute Eosinophils (0.0 - 0.7 /CUMM) 0 Absolute Basophils (0.0 - 0.2 /CUMM) 0 PUBS MCHC (33.0 - 37.0 G/DL) 32.4 L Miscellaneous Phlebotomy Draw Site RIGHT RADIAL 12/09 0515 Chemistry Sodium (137 - 145 mmol/L) 134 L Potassium (3.5 - 5.1 mmol/L) 4.1 Chloride (98 - 107 mmol/L) 89 L Carbon Dioxide (22 - 30 mmol/L) 39 H Anion Gap (5 - 16) 5 BUN (7 - 17 mg/dL) 36 H Creatinine (0.5 - 1.0 mg/dL) 0.8 Estimated GFR (>60 ml/min) > 60 Glucose (65 - 99 mg/dL) 116 H Calcium (8.4 - 10.2 mg/dL) 8.7 Phosphorus (2.5 - 4.5 mg/dL) 3.5 Magnesium (1.6 - 2.3 mg/dL) 2.2 Total Bilirubin (0.2 - 1.3 mg/dL) 0.6 AST (14 - 36 U/L) 26 ALT (9 - 52 U/L) 69 H Albumin (3.5 - 5.0 g/dL) 3.3 L Hematology CBC w Diff NO MAN DIFF REQ WBC (4.8 - 10.8 /CUMM) 13.0 H RBC (4.20 - 5.40 /CUMM) 3.46 L Hgb (12.0 - 16.0 G/DL) 10.8 L Hct (37 - 47 %) 33.1 L MCV (81.0 - 99.0 FL) 95.8 MCH (27.0 - 31.0 PG) 31.3 H RDW (11.5 - 14.5 %) 15.0 H Plt Count (130 - 400 /CUMM) 263 MPV (7.4 - 10.4 FL) 7.0 L Gran % (42.2 - 75.2 %) 89.1 H Lymphocytes % (20.5 - 51.1 %) 3.0 L Monocytes % (1.7 - 9.3 %) 5.8 Eosinophils % (0 - 5 %) 0.1 Basophils % (0.0 - 2.0 %) 2.0 Absolute Granulocytes (1.4 - 6.5 /CUMM) 11.5 H Absolute Lymphocytes (1.2 - 3.4 /CUMM) 0.4 L Absolute Monocytes (0.10 - 0.60 /CUMM) 0.8 H Absolute Eosinophils (0.0 - 0.7 /CUMM) 0 Absolute Basophils (0.0 - 0.2 /CUMM) 0.3 PUBS MCHC (33.0 - 37.0 G/DL) 32.7 L Impression/Plan Impression/Plan Impression/Plan: Exam General Appearance: no apparent distress, alert, awake Head: atraumatic, normal appearance Ears, Nose, Throat: normal ENT inspection, hearing decreased Neck: supple Respiratory: chest non-tender, no respiratory distress, decreased breath sounds Cardiovascular: irregularly irregular Gastrointestinal: normal bowel sounds, soft, non-tender Extremities: pedal edema Quezada Site: quezada in IMPRESSION Pt with end stage copd with * Resolving Acute hypoxic and hypercarbic resp failure due to progressive lung failure with prob super imposed pna * Improving tachycardia appears to be sinus tachycardia, no previous history suggestive of significant atrial fibrillation, still attimes tachy * UTI * HTN/HLD/Hypothyroid * Chronic hyponatremia * Improving mental status due to hypercarbia, now back to baseline * ALtered lfts, improving * 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 Patient clearly qualifies for BiPAP for end-stage COPD as she is clearly benefiting from it. Patient would require bedtime BiPAP preferably with Trilogy machine with backup rate of 20 with settings of 16/6. * Out of bed to chair Patient can be transferred to a regular medical floor Patient would benefit from [facility] facility with BiPAP DNR and DNI pt wishes to go home
--- NOTE | 2016-12-10 10:51 | NUR ---
PHYSICAL THERAPY: Attempted to complete P.T. Evaluation this morning; introduced self and role to patient, who was unable to maintain eyes open. SaO2 81% on 5L seated in the chair. Spoke to RN regarding current SaO2 levels; advised to defer PT evaluation at this time and f/u as appropriate.
--- NOTE | 2016-12-10 11:31 | PN- Cardiology ---
Subjective Subjective: The patient complains of persistent shortness of breath. No palpitations. No chest pain. No diaphoresis. She is currently receiving a nebulizer treatment. nuclear monitoring technician reveals sinus rhythm. Multifocal atrial tachycardia is improving on verapamil Objective Vital Signs and I&Os Vital Signs Date Time Temp Pulse Resp B/P Pulse O2 O2 Flow FiO2 Ox Delivery Rate 12/10 0939 84 132/76 12/10 0800 97.9 84 26 132/76 92 Nasal 5.0L Cannula 12/10 0342 84 94 12/10 0051 76 93 12/10 0000 95 BIPAP 40% 12/10 0000 98.6 85 20 142/78 95 BIPAP 40% 12/09 2224 83 91 12/09 1930 121 90 12/09 1645 90 Nasal 5.0L Cannula 12/09 1600 95 Nasal 5.0L Cannula 12/09 1600 98.9 106 28 130/80 95 Nasal 5.0L Cannula Intake & Output 12/10 1600 12/10 0800 12/10 0000 12/09 1600 12/09 0800 12/09 0000 Intake Total 120 300 340 50 50 Output Total 950 280 250 Balance 120 300 -610 -230 -200 Intake, Oral 120 300 340 50 50 Number 2 1 0 Bowel Movements Output, Urine 950 280 250 Physical Exam: Gen: The patient is in no acute distress HEENT: Normal nose, ears, and oropharynx. Pupils equal bilaterally. Conjunctiva normal. Neck: Supple with no JVD, no masses, and no thyromegaly Lungs: Clear to auscultation with normal respiratory effort Heart: RRR, S1, S2, 1/6 systolic murmur. No peripheral edema, 2+ pulses in the lower extremities bilaterally Abdomen: Soft, nontender, no masses. No hepatomegaly. No splenomegaly Extremities: No clubbing or cyanosis. Normal muscle strength in the upper and lower extremities. Skin: Normal skin turgor with no skin ulcers or lesions noted. Current Medications: Current Medications Sig/Lashon Start time Last Medication Dose Route Stop Time Status Admin Acetazolamide 250 MG Q48 12/10 1000 AC 12/10 PO 0936 Albuterol Sulfate 3 ML EVERY 4 HRS/AWAKE 12/09 1600 AC 12/10 INH 1101 Albuterol Sulfate 3 ML Q4 12/08 1000 DC 12/09 INH 1231 Amoxicillin/ 875 MG Q12 12/09 1000 AC 12/10 Clavulanate Potassium PO 0935 Enoxaparin Sodium 40 MG DAILY 12/06 1500 AC 12/10 SC 0935 Furosemide 40 MG Q48 12/11 1000 AC PO Furosemide 40 MG Q48 12/09 1330 DC PO Furosemide 40 MG DAILY 12/07 1300 DC 12/09 IV 1030 Ipratropium [place] 2.5 ML EVERY 4 HRS/AWAKE 12/09 1600 AC 12/10 INH 1101 Ipratropium [place] 2.5 ML Q4 12/06 2200 DC 12/09 INH 1231 Levothyroxine Sodium 0.025 MG DAILY AC 12/08 0700 AC 12/10 PO 0627 Phosphate 250 MG PC AND AT BEDTIME 12/09 0900 DC 12/09 PO 12/09 1301 1029 Prednisone 5 MG DAILY 12/16 1000 AC PO 12/17 1001 Prednisone 10 MG DAILY 12/14 1000 AC PO 12/15 1001 Prednisone 20 MG DAILY 12/12 1000 AC PO 12/13 1001 Prednisone 30 MG DAILY 12/10 1000 AC 12/10 PO 12/11 1001 0936 Prednisone 40 MG DAILY 12/08 1000 DC 12/09 PO 1030 Verapamil HCl 360 MG DAILY 12/08 1354 AC 12/10 PO 0939 Results Last 48 Hrs of Labs/Mics: Laboratory Tests 12/10/16 0820: pH 7.35, pCO2 74 *H, pO2 75 L, HCO3 40 H, ABG O2 Sat (Measured) 92.0 L, Carboxyhemoglobin 1.1 L, O2 Concentration % 5L, O2 Delivery Method NC, Phlebotomy Draw Site RIGHT RADIAL 12/10/16 0325: Anion Gap 4 L, Estimated GFR > 60, Glucose 123 H, Calcium 8.8, Phosphorus 3.8, Magnesium 2.2, Total Bilirubin 0.7, AST 21, ALT 59 H, Albumin 3.3 L, CBC w Diff NO MAN DIFF REQ, RBC 3.51 L, MCV 95.5, MCH 30.9, RDW 15.3 H, MPV 6.9 L, Gran % 91.4 H, Lymphocytes % 1.8 L, Monocytes % 6.5, Eosinophils % 0.3, Basophils % 0 L, Absolute Granulocytes 13.7 H, Absolute Lymphocytes 0.3 L, Absolute Monocytes 1.0 H, Absolute Eosinophils 0, Absolute Basophils 0, PUBS MCHC 32.4 L 12/09/16 0515: Anion Gap 5, Estimated GFR > 60, Glucose 116 H, Calcium 8.7, Phosphorus 3.5, Magnesium 2.2, Total Bilirubin 0.6, AST 26, ALT 69 H, Albumin 3.3 L, CBC w Diff NO MAN DIFF REQ, RBC 3.46 L, MCV 95.8, MCH 31.3 H, RDW 15.0 H, MPV 7.0 L, Gran % 89.1 H, Lymphocytes % 3.0 L, Monocytes % 5.8, Eosinophils % 0.1, Basophils % 2.0, Absolute Granulocytes 11.5 H, Absolute Lymphocytes 0.4 L, Absolute Monocytes 0.8 H, Absolute Eosinophils 0, Absolute Basophils 0.3, PUBS MCHC 32.7 L Assessment/Plan Assessment/Plan Assessment: 1. COPD with acute exacerbation 2. Hypertension 3. Chronic HFpEF with acute exacerbation 4. Multifocal atrial tachycardia, improved on verapamil Recommendations: * Continue verapamil * Continue po Lasix * Stable from cardiac standpoint. Continue telemetry? Yes
--- NOTE | 2016-12-10 13:42 | NUR ---
PHYSICAL THERAPY: F/u with patient this PM, patient con'ts to experience low saturation levels and currently on BiPAP. Per staffing consultant, patient is not appropraite for PT at this time. Will con't to f/u as appropriate.
[2016-12-10 16:00] VITALS: BP 124/50
--- NOTE | 2016-12-10 16:52 | PN- Resident CRCU ---
Subjective HPI/CRCU Issues: Saw patient at bedside this a.m. She was lethargic but arousable in a.m. She was satting 85 on 6 L O2. He clearly does much better when she is on the BiPAP. However, patient refuses to go back on the BiPAP. We convinced her to use high flow mask to improve her O2 saturations. We'll continue to monitor her and probable inpatient, we will put her back on BiPAP. No other acute overnight events. No active complaints. 24 Hour Events: No events on telemetry. Objective Vital Signs & I&O Last 8 Hrs of Vitals and I&O: Intake & Output 12/10 1600 Intake Total Output Total 150 Balance -150 Number 1 Bowel Movements Output, Urine 150 Exam General Appearance: well developed/nourished, no apparent distress, alert, awake Head: atraumatic, normal appearance Ears, Nose, Throat: normal pharynx Neck: supple Respiratory: chest non-tender, patient has very little air movement on auscultation. Upon lying in bed I could only hear periphery of lungs. I cannot appreciate any wheezes or rhonchi. Cardiovascular: regular rate/rhythm Gastrointestinal: soft, non-tender Extremities: no edema Nutrition Nutrition: P.O. diet Current Medications: Current Medications Sig/Lashon Start time Last Medication Dose Route Stop Time Status Admin Acetazolamide 250 MG Q48 12/10 1000 AC 12/10 PO 0936 Albuterol Sulfate 3 ML EVERY 4 HRS/AWAKE 12/09 1600 AC 12/10 INH 1609 Amoxicillin/ 875 MG Q12 12/09 1000 AC 12/10 Clavulanate Potassium PO 0935 Enoxaparin Sodium 40 MG DAILY 12/06 1500 AC 12/10 SC 0935 Furosemide 40 MG Q48 12/11 1000 AC PO Ipratropium [place] 2.5 ML EVERY 4 HRS/AWAKE 12/09 1600 AC 12/10 INH 1608 Levothyroxine Sodium 0.025 MG DAILY AC 12/08 0700 AC 12/10 PO 0627 Prednisone 5 MG DAILY 12/16 1000 AC PO 12/17 1001 Prednisone 10 MG DAILY 12/14 1000 AC PO 12/15 1001 Prednisone 20 MG DAILY 12/12 1000 AC PO 12/13 1001 Prednisone 30 MG DAILY 12/10 1000 AC 12/10 PO 12/11 1001 0936 Verapamil HCl 360 MG DAILY 12/08 1354 AC 12/10 PO 0939 Impression/Plan Impression/Problem List Impression: This is an 89-year-old female with past medical history of COPD on 4 L, hypertension, hypothyroidism, macular degeneration, who comes in with chief complaint of worsening shortness of breath. In ED she was found to be in both hypoxic and hypercarbic respiratory failure; started on BiPAP, chest x-ray and physical exam were suggestive pneumonia. Additionally, she was found to be tachycardic with altered mental status. As such, patient was admitted to ICU. She continues to remain hypoxic and hypercarbic despite being maintained on BiPAP. She went for MBS yesterday and was advanced to pure and thin liquids. He is now able to take by mouth medication. PLAN Respiratory: Patient has severe hypoxic and hypercarbic respiratory failure. 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 Came in with hypoxic and hypercarbic respiratory failure secondary to ongoing lung failure and superimposed pneumonia. Per Dr. Lowry, her previous PFTs showed pt had severe COPD with FEV1 less than 50% of predicted. ABG today showed pH 7.35, PCO2 74, bicarbonate 40. * TRC neb * Bipap, O2 goal 88-91% * Continue Augmentin for a total of 7 days * Continue prednisone taper * On alternating Lasix and Diamox every other day regimen * Ipratropium * Legionella/Strep Antigen negative * Patient will likely require BiPAP on outpatient basis Infectious Disease: Patient afebrile overnight. White count elevated up to 15 today however, she has steroids. * Urine Culture (12/08/16): Enterococcus> 100,000 CFU. Sensitive to ampicillin, Macrobid and vancomycin; we will treat with Augmentin. We'll continue to monitor clinically. * F/U C&S * Ramos catheter removed yesterday Cardiovascular: History of hypertension. She and has 2/6 systolic ejection murmur at right upper sternal border. Rhythm sounds irregular on auscultation this AM. Electrolytes within normal limits this AM. Blood pressure medications are held. Will restart them as needed this a.m. * Telemetry hold * Troponin negative x3 * Continue verapamil * Thank you for Cardiology consult * Daily ICU Bundle * Keep electrolytes within normal limits * Patient is on alternating Lasix and Diamox regimen Endocrine: History of hypothyroidism. * Patient reportedly no longer taking levothyroxine per , we will start inpatient. Problem List: 1. COPD (chronic obstructive pulmonary disease) 2. Hypoxia Pain Ratin Pain Location: None Tomorrow's Labs & Rationales: Icu bundle Plan DVT/Prophylaxis: pharmacological Code Status: Do Not Resucitate/Intubat
--- NOTE | 2016-12-10 21:08 | NUR ---
PT IS A+OX3. DENIES PAIN. EXPIRATORY WHEEZES THROUGHOUT LUNGFIELDS. BIPAP DECREASED TO 40% BY RT. O2 SAT IS 95%. PT WAS ON HER LEFT SIDE. SHE WAS REPOSITIONED ON HER BACK. PT CONTINUES TO HAVE SWELLING TO BLE, +1-2, AND THEY ARE WHEEPING. LEGS ELEVATED ON PILLOW. ENTIRE LEFT ARM AND HAND IS SWOLLEN +3 WHICH IS WORSE, PER REPORT IT HAD BEEN +2. DR. SAL GOINS #[id number] WAS UPDATED. CALL LIGHT IN REACH.
[2016-12-11] VITALS: BP 100/70
--- NOTE | 2016-12-11 | NUR ---
PATIENT ALERT.ON BIPAP AT 40% SAT=95%.TURNED AND REPOSITIONED.INCONTINENT OF URINE. LOWER EXTREMITIES REMAIN EDEMATOUS AND WEEPING.
[2016-12-11 08:00] VITALS: BP 130/70
[2016-12-11 08:10] LABS: ABSOLUTE BASOPHIL COUNT 0 /CUMM (0.0-0.2); ABSOLUTE EOSINOPHIL COUNT 0.1 /CUMM (0.0-0.7); ABSOLUTE GRANULOCYTE CT 9.4 /CUMM (1.4-6.5); ABSOLUTE LYMPH COUNT 0.4 /CUMM (1.2-3.4); ABSOLUTE MONOCYTE COUNT 0.8 /CUMM (0.10-0.60); BASOPHIL % 0 % (0.0-2.0); HEMATOCRIT 32.4 % (37-47); MEAN CORPUSCULAR HGB 31.4 PG (27.0-31.0); MEAN CORPUSCULAR VOLUME 95.1 FL (81.0-99.0); MEAN PLATELET VOLUME 7.4 FL (7.4-10.4); PLATELET COUNT 231 /CUMM (130-400); RBC DISTRIBUTION WIDTH 15.4 % (11.5-14.5); RED BLOOD CELL CT 3.41 /CUMM (4.20-5.40); WHITE BLOOD CELL COUNT 10.7 /CUMM (4.8-10.8)
[2016-12-11 09:23] LABS: GRANULOCYTE % 87.8 % (42.2-75.2)
--- NOTE | 2016-12-11 09:41 | NUR ---
0700 PATIENTS LEFT ARM 1+ EDEMA COOL TO TOUCH COLOR WNL LEFT HAND 3+ EDEMA, RED IN COLOR, WARM TO TOUCH; DR. CARRILLO CALLED INTO ROOM REPORTES NO U/S AT THIS TIME ELEVATED LEFT ARM ON 2 PILLOWS AND HAND ON 3 PILLOWS HAND AND ARM EDEMA DECREASING WILL CINTINUE TO MONITOR
--- NOTE | 2016-12-11 11:00 | PN- Pulmonary ---
Subjective HPI/Critical Care Issues: Doing well More awake Has difficulty staying off bipap Wishes to go home, and not a big fan of bipap Objective Current Medications: Current Medications Sig/Lashon Start time Last Medication Dose Route Stop Time Status Admin Acetazolamide 250 MG Q48 12/10 1000 AC 12/10 PO 0936 Albuterol Sulfate 3 ML EVERY 4 HRS/AWAKE 12/09 1600 AC 12/11 INH 0750 Amoxicillin/ 875 MG Q12 12/09 1000 AC 12/11 Clavulanate Potassium PO 0915 Enoxaparin Sodium 40 MG DAILY 12/06 1500 AC 12/11 SC 0916 Furosemide 40 MG Q48 12/11 1000 AC 12/11 PO 0915 Furosemide 20 MG ONCE ONE 12/11 0815 CAN IV 12/11 0816 Ipratropium [place] 2.5 ML EVERY 4 HRS/AWAKE 12/09 1600 AC 12/11 INH 0750 Levothyroxine Sodium 0.025 MG DAILY AC 12/08 0700 AC 12/10 PO 0627 Potassium Chloride 20 MEQ DAILY 12/11 1000 AC 12/11 PO 0917 Prednisone 5 MG DAILY 12/16 1000 AC PO 12/17 1001 Prednisone 10 MG DAILY 12/14 1000 AC PO 12/15 1001 Prednisone 20 MG DAILY 12/12 1000 AC PO 12/13 1001 Prednisone 30 MG DAILY 12/10 1000 DC 12/11 PO 12/11 1001 0915 Verapamil HCl 360 MG DAILY 12/08 1354 AC 12/11 PO 0914 Vital Signs & I&O Last 24 Hrs of Vitals and I&O: Vital Signs Date Time Temp Pulse Resp B/P Pulse O2 O2 Flow FiO2 Ox Delivery Rate 12/11 0914 92 125/88 12/11 0821 79 96 12/11 0800 94 BIPAP 40% 12/11 0800 97.7 76 28 130/70 94 BIPAP 40% 12/11 0753 95 BIPAP 40% 12/11 0752 89 95 12/11 0629 81 93 12/11 0331 74 93 12/11 0209 82 89 12/11 0042 79 95 12/11 0000 95 BIPAP 40% 12/11 0000 97.4 79 24 100/70 95 BIPAP 40% 12/10 2217 91 89 12/10 1910 72 93 12/10 1613 92 BIPAP 50% 12/10 1610 78 92 12/10 1600 94 BIPAP 65% 12/10 1600 98.1 91 22 124/50 96 BIPAP 12/10 1335 82 96 12/10 1200 97 Nasal 65% Cannula 12/10 1151 94 Nasal 65% Cannula Intake & Output 12/11 1600 12/11 0800 12/11 0000 Intake Total 200 270 Output Total Balance 200 270 Intake, Oral 200 270 Patient 170 lb Weight Impression/Plan Impression/Plan Impression/Plan: Exam General Appearance: no apparent distress, alert, awake Head: atraumatic, normal appearance Ears, Nose, Throat: normal ENT inspection, hearing decreased Neck: supple Respiratory: chest non-tender, no respiratory distress, decreased breath sounds Cardiovascular: irregularly irregular Gastrointestinal: normal bowel sounds, soft, non-tender Extremities: pedal edema Quez[place] Site: quezada in IMPRESSION Pt with end stage copd with * Sig recurrent Acute hypoxic and hypercarbic resp failure due to progressive lung failure with prob super imposed pna, not responding to aggresive bipap rx and pt not too keen on bipap * Sinus tachy resoving * UTI * HTN/HLD/Hypothyroid * Chronic hyponatremia * ALtered lfts, improving * 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 She wishes to go home with current rx and wishes to stay home and wishes to live out her life at home. Wishes symptomatic rx only. Family meeting held and they wish the same Will transfer her to [facility] to a private room. WIll try to get to see if she can go home on home hospice with bipap and oxygen and if pt gets worse she will stay home with no return to hospital. Family wishes the same IF she can take po change all meds to po No further agg measures No ICU transfer and while on floor if she gets worse will institute comfort and inpatient hospice DNR and DNI Home hospice eval NO ICU/if worse comfort DIscussed with house officers and Family and patient
--- NOTE | 2016-12-11 11:40 | NUR ---
PHYSICAL THERAPY. DISCUSSED W/ RN, Pt NOW ON ON BIPAP, GOING HOME ON HOSPICE. PT WILL NOT FOLLOW. CO-SIGNED DAWN JACOBT
--- NOTE | 2016-12-11 12:04 | PN- Cardiology ---
Subjective Subjective: the patient seems to be doing fairly well today. She feels that her breathing is stable. She is very anxious to go home. Ongoing family discussions about the possibility of home care versus rehabilitation. No new cardiac issues. Objective Vital Signs and I&Os Vital Signs Date Time Temp Pulse Resp B/P Pulse O2 O2 Flow FiO2 Ox Delivery Rate 12/11 0914 92 125/88 12/11 0821 79 96 12/11 0800 94 BIPAP 40% 12/11 0800 97.7 76 28 130/70 94 BIPAP 40% 12/11 0753 95 BIPAP 40% 12/11 0752 89 95 12/11 0629 81 93 12/11 0331 74 93 12/11 0209 82 89 12/11 0042 79 95 12/11 0000 95 BIPAP 40% 12/11 0000 97.4 79 24 100/70 95 BIPAP 40% 12/10 2217 91 89 12/10 1910 72 93 12/10 1613 92 BIPAP 50% 12/10 1610 78 92 12/10 1600 94 BIPAP 65% 12/10 1600 98.1 91 22 124/50 96 BIPAP 12/10 1335 82 96 Intake & Output 12/11 1600 12/11 0800 12/11 0000 12/10 1600 12/10 0800 12/10 0000 Intake Total 200 30 240 120 300 Output Total 150 Balance 200 30 90 120 300 Intake, Oral 200 30 240 120 300 Number 1 2 1 Bowel Movements Output, Urine 150 Patient 170 lb Weight Physical Exam: General Appearance: well developed/nourished, no apparent distress, alert, awake Head: Normal Ears, Nose, Throat: Normal Neck: supple, carotids normal bilaterally Respiratory: Decreased air entry bilaterally with scattered rhonchi Cardiovascular: regular rate/rhythm, S1, S2. 1/6 systolic murmur left sternal border Gastrointestinal: soft, non-tender Extremities: no edema Current Medications: Current Medications Sig/Lashon Start time Last Medication Dose Route Stop Time Status Admin Acetazolamide 250 MG Q48 12/10 1000 AC 12/10 PO 0936 Albuterol Sulfate 3 ML EVERY 4 HRS/AWAKE 12/09 1600 AC 12/11 INH 1130 Amoxicillin/ 875 MG Q12 12/09 1000 AC 12/11 Clavulanate Potassium PO 0915 Enoxaparin Sodium 40 MG DAILY 12/06 1500 AC 12/11 SC 0916 Furosemide 40 MG Q48 12/11 1000 AC 12/11 PO 0915 Furosemide 20 MG ONCE ONE 12/11 0815 CAN IV 12/11 0816 Ipratropium [place] 2.5 ML EVERY 4 HRS/AWAKE 12/09 1600 AC 12/11 INH 1130 Levothyroxine Sodium 0.025 MG DAILY AC 12/08 0700 AC 12/10 PO 0627 Potassium Chloride 20 MEQ DAILY 12/11 1000 AC 12/11 PO 0917 Prednisone 5 MG DAILY 12/16 1000 AC PO 12/17 1001 Prednisone 10 MG DAILY 12/14 1000 AC PO 12/15 1001 Prednisone 20 MG DAILY 12/12 1000 AC PO 12/13 1001 Prednisone 30 MG DAILY 12/10 1000 DC 12/11 PO 12/11 1001 0915 Verapamil HCl 360 MG DAILY 12/08 1354 AC 12/11 PO 0914 Results Last 48 Hrs of Labs/Mics: Laboratory Tests 12/11/16 0645: Anion Gap 3 L, Estimated GFR > 60, Glucose 84, Calcium 8.7, Phosphorus 3.9, Magnesium 2.3, Total Bilirubin 0.7, AST 17, ALT 51, Albumin 3.2 L, CBC w Diff NO MAN DIFF REQ, RBC 3.41 L, MCV 95.1, MCH 31.4 H, RDW 15.4 H, MPV 7.4, Gran % 87.8 H, Lymphocytes % 4.0 L, Monocytes % 7.2, Eosinophils % 1.0, Basophils % 0 L, Absolute Granulocytes 9.4 H, Absolute Lymphocytes 0.4 L, Absolute Monocytes 0.8 H, Absolute Eosinophils 0.1, Absolute Basophils 0, PUBS MCHC 33.0 12/10/16 0820: pH 7.35, pCO2 74 *H, pO2 75 L, HCO3 40 H, ABG O2 Sat (Measured) 92.0 L, Carboxyhemoglobin 1.1 L, O2 Concentration % 5L, O2 Delivery Method NC, Phlebotomy Draw Site RIGHT RADIAL 12/10/16 0325: Anion Gap 4 L, Estimated GFR > 60, Glucose 123 H, Calcium 8.8, Phosphorus 3.8, Magnesium 2.2, Total Bilirubin 0.7, AST 21, ALT 59 H, Albumin 3.3 L, CBC w Diff NO MAN DIFF REQ, RBC 3.51 L, MCV 95.5, MCH 30.9, RDW 15.3 H, MPV 6.9 L, Gran % 91.4 H, Lymphocytes % 1.8 L, Monocytes % 6.5, Eosinophils % 0.3, Basophils % 0 L, Absolute Granulocytes 13.7 H, Absolute Lymphocytes 0.3 L, Absolute Monocytes 1.0 H, Absolute Eosinophils 0, Absolute Basophils 0, PUBS MCHC 32.4 L Assessment/Plan Assessment/Plan Assessment/Plan 1. COPD with acute exacerbation 2. Hypertension 3. Chronic HFpEF with acute exacerbation 4. Multifocal atrial tachycardia, improved on diltiazem Recommendations: -Continued episodes of tachycardia suggestive of MAT. Interspersed with long episodes of being arrhythmia free. -Monitor on telemetry for now on current meds and continue treating underlying pulmonary disease. -If episodes persist, consider transitioning back to oral cardizem for improved rhythm control - COntinue gentle diuresis -Followup labs in AM -Family discussion about discharge planning recommendations pending Continue telemetry? No
--- NOTE | 2016-12-11 12:08 | Transfer of Care Summary ---
Hospital Course Course Hospital Course: This is an 89-year-old female who is at baseline blind and hard of hearin, with past medical history of COPD on 4 L, hypertension, hypothyroidism, macular degeneration, who comes in with chief complaint of worsening shortness of breath. In ED she was found to be in both hypoxic and hypercarbic respiratory failure; started on BiPAP, chest x-ray and physical exam were suggestive pneumonia. Additionally, she was found to be tachycardic with altered mental status. As such, patient was admitted to ICU. She continues to remain hypoxic and hypercarbic despite being maintained on BiPAP. She went for MBS and was advanced to pure and thin liquids. Capable of po medication. THINGS TO FOLLOW UP: Cardiology note (in draft), consider moving ALL meds to PO; follow up on hospice eval; keep PCP (Dr. Carlson) in loop of any changes in care status. Significant Procedures: none Pertinent Lab Results: Laboratory Tests 12/11 0645 Chemistry Sodium (137 - 145 mmol/L) 133 L Potassium (3.5 - 5.1 mmol/L) 4.1 Chloride (98 - 107 mmol/L) 91 L Carbon Dioxide (22 - 30 mmol/L) 39 H Anion Gap (5 - 16) 3 L BUN (7 - 17 mg/dL) 36 H Creatinine (0.5 - 1.0 mg/dL) 0.7 Estimated GFR (>60 ml/min) > 60 Glucose (65 - 99 mg/dL) 84 Calcium (8.4 - 10.2 mg/dL) 8.7 Phosphorus (2.5 - 4.5 mg/dL) 3.9 Magnesium (1.6 - 2.3 mg/dL) 2.3 Total Bilirubin (0.2 - 1.3 mg/dL) 0.7 AST (14 - 36 U/L) 17 ALT (9 - 52 U/L) 51 Albumin (3.5 - 5.0 g/dL) 3.2 L Hematology CBC w Diff NO MAN DIFF REQ WBC (4.8 - 10.8 /CUMM) 10.7 RBC (4.20 - 5.40 /CUMM) 3.41 L Hgb (12.0 - 16.0 G/DL) 10.7 L Hct (37 - 47 %) 32.4 L MCV (81.0 - 99.0 FL) 95.1 MCH (27.0 - 31.0 PG) 31.4 H RDW (11.5 - 14.5 %) 15.4 H Plt Count (130 - 400 /CUMM) 231 MPV (7.4 - 10.4 FL) 7.4 Gran % (42.2 - 75.2 %) 87.8 H Lymphocytes % (20.5 - 51.1 %) 4.0 L Monocytes % (1.7 - 9.3 %) 7.2 Eosinophils % (0 - 5 %) 1.0 Basophils % (0.0 - 2.0 %) 0 L Absolute Granulocytes (1.4 - 6.5 /CUMM) 9.4 H Absolute Lymphocytes (1.2 - 3.4 /CUMM) 0.4 L Absolute Monocytes (0.10 - 0.60 /CUMM) 0.8 H Absolute Eosinophils (0.0 - 0.7 /CUMM) 0.1 Absolute Basophils (0.0 - 0.2 /CUMM) 0 PUBS MCHC (33.0 - 37.0 G/DL) 33.0 Assessment/Plan: Respiratory: Patient has severe hypoxic and hypercarbic respiratory failure. 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 Came in with hypoxic and hypercarbic respiratory failure secondary to ongoing lung failure and superimposed pneumonia. Per Dr. Lowry, her previous PFTs showed pt had severe COPD with FEV1 less than 50% of predicted. ABG yesterday showed pH 7.35, PCO2 74, bicarbonate 40. We had long conversation today with patient and family regarding goals of care as pt is getting progressively bipap dependent, yet she does not like being put on machine. After much discussion family has decided to de-escalate goals of care. Pt wishes to go home with home-hospice care. We will transfer her to [facility] to a private room as there is possibility that she might deteriorate in hospital. No further aggressive measures. * TRC neb * Bipap, O2 goal 88-91% * Continue Augmentin for a total of 7 days; STOP ON * Continue prednisone taper * On alternating Lasix and Diamox every other day regimen * Ipratropium * Legionella/Strep Antigen negative * No ICU transfer while on floor. If she gets [facility] and in pt hospice * Home hospice eval * DNR/DNI--> headed towards comfort care * Can change meds to PO it pt tolerates * Would not draw AM labs Infectious Disease: Patient afebrile overnight. Urine Culture (12/08/16): Enterococcus> 100,000 CFU. Sensitive to Ampicillin, Macrobid and vancomycin. * Pt has been getting antibiotics since 12/06/2016: including vanco/ceftaz--> Ceftin--> Augmentin. * Currently on Augmentin (D/C ON 12/13/2016) for total of 7 days of abx. * Continue to monitor clinically. * F/U C&S Cardiovascular: History of hypertension. She and has 2/6 systolic ejection murmur at right upper sternal border. Electrolytes within normal limits this AM. Blood pressure medications are held. Will restart them as needed this a.m. Has intermittent episodes of MAT with long periods in between of normal rate and rhythm. * Telemetry hold * Troponin negative x3 * Continue home dose verapamil--> Consider changing to Diltiazem if heart rhythm irregular and difficult to control * Thank you for Cardiology consult * Keep electrolytes within normal limits * Patient is on alternating Lasix and Diamox regimen Endocrine: History of hypothyroidism. * Patient reportedly no longer taking levothyroxine per , we will start inpatient. * She is refusing her thyroid meds while in hospital
--- NOTE | 2016-12-11 12:22 | PN- Resident CRCU ---
Subjective HPI/CRCU Issues: Patient is in ICU for: Hypoxic and hypercarbic respiratory failure secondary to end-stage COPD. 24 Hour Events: No acute overnight events. Pt saturating well on bipap. GM hold Objective Vital Signs & I&O Last 8 Hrs of Vitals and I&O: Intake & Output 12/11 1600 Intake Total Output Total Balance Patient 77.309 kg Weight Exam General Appearance: well developed/nourished, no apparent distress, alert, awake , comfortable Head: atraumatic, normal appearance Ears, Nose, Throat: normal ENT inspection Neck: supple Respiratory: chest non-tender, quiet respiration Cardiovascular: regular rate/rhythm, edema Gastrointestinal: soft, non-tender Extremities: normal inspection Current Medications: Current Medications Sig/Lashon Start time Last Medication Dose Route Stop Time Status Admin Acetazolamide 250 MG Q48 12/10 1000 AC 12/10 PO 0936 Albuterol Sulfate 3 ML EVERY 4 HRS/AWAKE 12/09 1600 AC 12/11 INH 1130 Amoxicillin/ 875 MG Q12 12/09 1000 AC 12/11 Clavulanate Potassium PO 0915 Enoxaparin Sodium 40 MG DAILY 12/06 1500 AC 12/11 SC 0916 Furosemide 40 MG Q48 12/11 1000 AC 12/11 PO 0915 Furosemide 20 MG ONCE ONE 12/11 0815 CAN IV 12/11 0816 Ipratropium [place] 2.5 ML EVERY 4 HRS/AWAKE 12/09 1600 AC 12/11 INH 1130 Levothyroxine Sodium 0.025 MG DAILY AC 12/08 0700 AC 12/10 PO 0627 Potassium Chloride 20 MEQ DAILY 12/11 1000 AC 12/11 PO 0917 Prednisone 5 MG DAILY 12/16 1000 AC PO 12/17 1001 Prednisone 10 MG DAILY 12/14 1000 AC PO 12/15 1001 Prednisone 20 MG DAILY 12/12 1000 AC PO 12/13 1001 Prednisone 30 MG DAILY 12/10 1000 DC 12/11 PO 12/11 1001 0915 Verapamil HCl 360 MG DAILY 12/08 1354 AC 12/11 PO 0914 Impression/Plan Impression/Problem List Impression: This is an 89-year-old female with past medical history of COPD on 4 L, hypertension, hypothyroidism, macular degeneration, who comes in with chief complaint of worsening shortness of breath. In ED she was found to be in both hypoxic and hypercarbic respiratory failure; started on BiPAP, chest x-ray and physical exam were suggestive pneumonia. Additionally, she was found to be tachycardic with altered mental status. As such, patient was admitted to ICU. She continues to remain hypoxic and hypercarbic despite being maintained on BiPAP. She went for MBS and was advanced to pure and thin liquids. Capable of po medication. PLAN Respiratory: Patient has severe hypoxic and hypercarbic respiratory failure. 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 Came in with hypoxic and hypercarbic respiratory failure secondary to ongoing lung failure and superimposed pneumonia. Per Dr. Lowry, her previous PFTs showed pt had severe COPD with FEV1 less than 50% of predicted. ABG yesterday showed pH 7.35, PCO2 74, bicarbonate 40. We had long conversation today with patient and family regarding goals of care as pt is getting progressively bipap dependent, yet she does not like being put on machine. After much discussion family has decided to de-escalate goals of care. Pt wishes to go home with home-hospice care. We will transfer her to [facility] to a private room as there is possibility that she might deteriorate in hospital. No further aggressive measures. * TRC neb * Bipap, O2 goal 88-91% * Continue Augmentin for a total of 7 days * Continue prednisone taper * On alternating Lasix and Diamox every other day regimen * Ipratropium * Legionella/Strep Antigen negative * No ICU transfer while on floor. If she gets [facility] and [facility] pt hospice * Home hospice eval * DNR/DNI * Can change meds to PO it pt tolerates Infectious Disease: Patient afebrile overnight. * Urine Culture (12/08/16): Enterococcus> 100,000 CFU. Sensitive to ampicillin, Macrobid and vancomycin; we will treat with Augmentin. We'll continue to monitor clinically. * F/U C&S Cardiovascular: History of hypertension. She and has 2/6 systolic ejection murmur at right upper sternal border. Electrolytes within normal limits this AM. Blood pressure medications are held. Will restart them as needed this a.m. * Telemetry hold * Troponin negative x3 * Continue verapamil--> Consider changing to Diltiazem if heart rhythm irregular and difficult to control * Thank you for Cardiology consult * Keep electrolytes within normal limits * Patient is on alternating Lasix and Diamox regimen Endocrine: History of hypothyroidism. * Patient reportedly no longer taking levothyroxine per , we will start inpatient. Problem List: 1. Back strain 2. Hyponatremia 3. Hypertension Pain Ratin Pain Location: none Tomorrow's Labs & Rationales: none Plan DVT/Prophylaxis: pharmacological Code Status: Do Not Resucitate/Intubat
--- NOTE | 2016-12-11 13:49 | NUR ---
SPEECH THERAPY: PER RN, PT TOLERATING CURRENT DIET (PUREE/NECTAR) WITH NO DIFFICULTIES. RN STATES PT CODE STATUS AWAITING CHANGE TO HOME HOSPICE. NO FURTHER SKILLED ST SERVICES CLINICALLY INDICATED AT THIS TIME.
[2016-12-11 14:15] VITALS: BP 110/70
[2016-12-11] MEDS ORDERED: AMOX-CLAV 875-1 EACH PO (14:56)
[2016-12-11] MEDS ORDERED: PREDNISONE10 M2 PO (15:03)
--- NOTE | 2016-12-11 15:06 | Patient Discharge Instructions ---
Discharge Instructions General Discharge Information You were seen/treated for: COPD Exacerbation Special Instructions: Please continue to follow with [facility] Acute Coronary Syndrome Inclusion Criteria At DC or during hospital stay patient has or had the following: ACS DIAGNOSIS No Discharge Core Measures Meds if any: Prescribed or Continued at Discharge Meds if any: NOT Prescribed or Continued at Discharge Congestive Heart Failure Inclusion Criteria At DC or during hospital stay patient has or had the following: CHF DIAGNOSIS No Discharge Core Measures Meds if any: Prescribed or Continued at Discharge Meds if any: NOT Prescribed or Continued at Discharge Cerebrovascular accident Inclusion Criteria At DC or during hospital stay patient has or had the following: CVA/TIA Diagnosis No Discharge Core Measures Meds if any: Prescribed or Continued at Discharge Meds if any: NOT Prescribed or Continued at Discharge Venous thromboembolism Inclusion Criteria VTE Diagnosis No VTE Type NONE VTE Confirmed by (Test) NONE Discharge Core Measures - Per Current guidelines, there needs to be overlap - treatment for the first 5 days of Warfarin therapy. - If discharged on Warfarin prior to 5 days of - overlap therapy, the patient will need to be - assessed for post discharge needs including - *Post discharge parental anticoagulation - *Warfarin and/or parental anticoagulation education - *Follow up date to check INR post discharge At least 5 days overlap therapy as Inpatient No Meds if any: Prescribed or Continued at Discharge Note: Overlap Therapy is Warfarin and Anticoagulant Meds if any: NOT Prescribed or Continued at Discharge
--- NOTE | 2016-12-11 15:44 | NUR ---
PT SETTLED IN BED, REQUESTING BIPAP REMOVAL, PT PLACED ON 5L NC, MD PEARSON AWARE FAM @ BEDSIDE, WILL CONTINUE TO MONITOR.
[2016-12-11 22:19] VITALS: BP 118/62
--- NOTE | 2016-12-12 06:40 | NUR ---
LATE ENTRY THIS RN NOTED PATIENT BECOMING LESS AND LESS RESPONSIVE AND RAPIDLY DETERIORATING RESPIRATORY BARRON. RR 20-30'S (BEING MEDICATED WITH MORPHINE PRN SCHEDULED). 02 SAT 70'S%. SHALLOW, IRREGULAR BREATHING PATTERN. MD GOINS MADE AWARE. 02 INCREASED TO 7L NC. NO FURTHER ORDERS. WILL MONITOR.
[2016-12-12 07:07] VITALS: BP 112/62
--- NOTE | 2016-12-12 07:49 | Event Note ---
Event Note Event Note: Night team notified by nursing staff that patient remained unresponsive and had passed. I went to evaluate patient and confirmed at 736 am. Likely cause is cardiopulmonary arrest secondary to respiratory failure from underlying end stage COPD. certificate has been filled out and immediately notified.
--- NOTE | 2016-12-12 07:59 | NUR ---
LATE ENTRY THIS RN ENTERED PATIENT ROOM AT APPROX 0718 TO CHECK ON PATIENT. PATIENT WAS UNRESPONSIVE. PATIENT WAS BREATHLESS AND PULSELESS. PUPILS FIXED AND DILATED AND NON-REACTIVE TO LIGHT. MOD WAS IMMEDIATELY PAGED TO INFORM OF PATIENT'S PASSING. MD MITRA PEARSON IN TO SEE PATIENT. MD PEARSON DECLARED TIME OF AT 0736. NOTIFIED BY . CHARGE NURSE NOTIFIED, NURSING DATACAP DEVELOPER NOTIFIED, ADMITTING NOTIFIED. ORGAN BANK NOTIFIED AND DECLINED. PAST[facility] CALLED BY LINE ASSEMBLY UTILITY WORKER. ON HIS WAY. EMOTIONAL SUPPORT TO BE PROVIDED.
--- NOTE | 2016-12-12 12:40 | NUR ---
12:40- PT LEFT FLOOR VIA YELLOW STRETCHER TO EDMUND. PAPERWORK SIGNED BY . ALL BELONGINGS INCLUDING RINGS, WATCH AND HEARING AIDS GIVEN TO .
--- NOTE | 2017-01-12 18:20 | Discharge Summary ---
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 She wishes to go home with current rx and wishes to stay home and wishes to live out her life at home. Wishes symptomatic rx only. Family meeting held and they wish the same Will transfer her to [facility] floor to a private room. WIll try to get to see if she can go home on home hospice with bipap and oxygen and if pt gets worse she will stay home with no return to hospital. Family wishes the same IF she can take po change all meds to po No further agg measures No ICU transfer and while on floor if she gets worse will institute comfort and inpatient hospice DNR and DNI Home hospice eval NO ICU/if worse comfort DIscussed with house officers and Family and patient SUBSEQUENTLY ON TRANSFER TO THE FLOOR PT QUICKLY AND PEACEFULLY Allergies: Coded Allergies: NO KNOWN ALLERGIES (12/08/16) Disposition Summary Disposition Principal Diagnosis: Respiratory failure COPD Additional Diagnosis: Sinus tachy resoving * UTI * HTN/HLD/Hypothyroid * Chronic hyponatremia * ALtered lfts, improving * 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 * Valvular heart disease, with high bnp with prob HF with Preserved EF Discharge Disposition: pt Discharge Instructions General Discharge Information Code Status: Do Not Resucitate/Intubat Patient's Diet: na Patient's Activity: na Follow-Up Instructions/Appts: na Medications at Discharge Discharge Medications: Stop taking the following medications: Prednisone (Prednisone) 10 MG TABLET ORAL See Instructions Qty = 30 Azithromycin (Azithromycin) 250 MG TABLET ORAL DAILY Qty = 3 Continue taking these medications: VERAPAMIL HCL (Verapamil ER) 240 MG TABLET.ER 360 Milligram ORAL DAILY Comments: Last Taken: 05/28/15 Time: 1000 Levothyroxine Sodium (Levothroid) 0.025 MG TAB 0.025 Milligram ORAL DAILY Comments: Last Taken: 05/28/15 Time: 0600 Tiotropium [place] (Spiriva) 18 MCG CAP.W.DEV 1 Capsule Inhale through mouth DAILY Fluticasone-Salmeterol (Advair 100-50 Diskus) 100 MCG-50 MCG/DOSE BLST.W.DEV 1 Puff Inhale through mouth TWICE DAILY Comments: Last Taken: SYMBICORT GIVEN 05/28/15 Time: 1000 Valsartan/Hydrochlorothiazide (Valsartan-Hctz 320-25 MG Tab) 1 EACH TABLET 1 Tablet ORAL DAILY Qty = 90 Guaifenesin (Guaifenesin ER) 600 MG TAB.ER.12H 600 Milligram ORAL EVERY 12 HOURS Qty = 10 Fosinopril Sodium (Fosinopril Sodium) 40 MG TABLET 1 Tablet ORAL DAILY Qty = 30 Furosemide (Furosemide) 20 MG TABLET 1 Tablet ORAL DAILY Qty = 30 Instructions: Hold HCTZ (one of your BP medication) while taking this med. Call liquified natural gas specialist if BP not under control. Albuterol Sulfate (Proventil Hfa) 90 MCG HFA.AER.AD 2 Puff Inhale through mouth 4 TIMES A DAY Qty = 20 Start taking the following new medications: Amoxicillin/Clavulanate [place] (Amox-Clav 875-125 MG Tablet) 875 MG-125 MG TABLET 875 Milligram ORAL EVERY 12 HOURS Qty = 10 No Refills Prednisone (Prednisone) 10 MG TABLET 20 Milligram ORAL DAILY Qty = 8 No Refills Instructions: On Take 12/12-12/13 20 MG 12/14-12/15 10 MG 12/16-12/17 5 MG Then stop Copies To: MATT LEWIS,DIVINA Simpson
== END 2016-12-12 07:36 | disposition expired | DRG 193 ==
LOC: ENRESERVDT → ENRESERVTM → ERH 09:10 → CRI 11:09 → ERHI 11:09 → EDBEDREQTM 11:46 → ERHI 12:01 → CRI 14:38 → 2NA 12-11 14:01
PROVIDERS: Internal Medicine; Internal Medicine Interventional Cardiology; Physician Assistant; Student in an Organized Health Care Education/Training Program; ADMIT Internal Medicine Pulmonary Disease
PROC: 5A09357 Assistance with Respiratory Ventilation, Less than 24 Consecutive Hours, Continuous Positive Airway Pressure (ICD-10-PCS; principal; 2016-12-06)
DX: J18.9 Pneumonia, unspecified organism (principal); J96.22 Acute and chronic respiratory failure with hypercapnia; J96.21 Acute and chronic respiratory failure with hypoxia; I50.33 Acute on chronic diastolic (congestive) heart failure; J44.0 Chronic obstructive pulmonary disease with (acute) lower respiratory infection; N39.0 Urinary tract infection, site not specified; J44.1 Chronic obstructive pulmonary disease with (acute) exacerbation; E87.1 Hypo-osmolality and hyponatremia; Z68.41 Body mass index [BMI] 40.0-44.9, adult; I11.0 Hypertensive heart disease with heart failure; E66.9 Obesity, unspecified; Z87.891 Personal history of nicotine dependence; H35.30 Unspecified macular degeneration; I35.1 Nonrheumatic aortic (valve) insufficiency; M19.90 Unspecified osteoarthritis, unspecified site; E03.9 Hypothyroidism, unspecified; Z99.81 Dependence on supplemental oxygen; Z66 Do not resuscitate
CPT/HCPCS: 2NAP; CCU; 36415; 74000; 74230; 82436; 87040; 87070; 87086; 87147; 87449; 87450; 87804; 87804-59; 93005; 93010; 96374; 96375; 99291; J0456; J0696; J0713; J1120; J1650; J1940; J2920; J2930; J7042; J7060; J7512